=== PATIENT | female | born 1935 | race Caucasian/White ===

== ENCOUNTER 2016-11-02 07:41 | Emergency (ER) | payer MEDICARE, MEDICAID ==
[~2016-11-02] VITALS: Ht 154.9 cm; Wt 94.0 kg
[~2016-11-02 07:41] MED LIST: AMLO5TAB4 PO; ASPI-1035 PO; CARV6.2548 PO; FURO-151 PO; GABA300S PO; HYDR-523 PO; P20 PO; PETR113O TOP; PROT40 PO; RIVA20TA PO; SULF-293 PO; Silver Sulfadiazine TOP
[2016-11-02] MEDS ORDERED: FURO40TA5 PO (07:57)
[2016-11-02] MEDS ORDERED: MONT10TA24 PO (07:57)
[2016-11-02] MEDS ORDERED: LOSA50TA20 PO (07:57)
[2016-11-02] MEDS ORDERED: LETAIRIS (07:57)
[2016-11-02] MEDS ORDERED: RIVA10TA PO (07:57)
[2016-11-02] MEDS ORDERED: SODIUM CHLORIDE 0.9% 1,000 ML IV SCH (08:30)
[2016-11-02] MEDS ORDERED: DIPHENHYDRAMINE 50MG/ML VIAL IV ONE (08:30)
[2016-11-02 09:06] LABS: BASOPHILS % 0.7 % (0.0-2.0); EOSINOPHILS % 4.4 % (0.0-5.0); HEMOGLOBIN. 13.5 g/dL (12.0-16.0); LYMPHOCYTES % 23.8 % (20.0-50.0); MEAN CORPUSCULAR HEMOGLOBIN 29.9 pg (28.0-32.0); MEAN CORPUSCULAR HGB CONC 32.2 g/dL (31.0-37.0); MEAN CORPUSCULAR VOLUME 92.7 fL (81.0-99.0); MEAN PLATELET VOLUME 8.1 fl (7.4-10.4); MONOCYTES % 8.8 % (2.0-8.0); NEUTROPHILS % 62.3 % (40.0-76.0); PLATELET 178 x1000/uL (130-400); RED BLOOD CELL COUNT 4.53 mill/uL (4.2-5.4); RED CELL DISTRIBUTION WIDTH 17.3 % (11.6-14.6); WHITE BLOOD COUNT 5.2 x1000/uL (4.5-11.0)
[2016-11-02 09:12] LABS: INR 1.1; PARTIAL THROMBOPLASTIN TIME 29.5 sec (24.0-34.0); PROTHROMBIN TIME 11.4 sec
[2016-11-02 09:15] LABS: ANION GAP 10; CALCIUM 8.5 mg/dL (8.5-10.1); CARBON DIOXIDE 36 mEq/L (21-32); CHLORIDE 102 mEq/L (98-107); INDEX HEMOLYSI 1 (1-3); INDEX ICTERIC 1 (1-4); INDEX LIPEMIC 1 (1-3); UREA NITROGEN BLOOD 11 mg/dL (7-21); eGFR > 60 mL/min (>60)
[2016-11-02 10:20] VITALS: BP 125/55
[2016-11-02] MEDS ORDERED: TETRACAINE 0.5% OPHTH DROPS 4ML BOTHEYE ONE (10:45)
[2016-11-02] MEDS ORDERED: FLUORESCEIN SODIUM 1MG/STRIP BOTHEYE ONE (10:45)
== END 2016-11-02 11:25 | disposition home or self-care (01) ==
LOC: ER 08:58
DX: R21 Rash and other nonspecific skin eruption (principal); H10.9 Unspecified conjunctivitis; I11.0 Hypertensive heart disease with heart failure; Z79.82 Long term (current) use of aspirin; Z79.01 Long term (current) use of anticoagulants; Z95.0 Presence of cardiac pacemaker
CPT/HCPCS: 36415; 80048; 85025; 85610; 85730; 96361; 96374; 99285; J1200; J7030

== ENCOUNTER → 2017-07-12 | Outpatient (CLI) | payer MEDICARE, MEDICAID ==
[~2017-07-12] MED LIST changes: +ACET-2178 PO; +AMBR10TA3 PO; -AMLO5TAB4 PO; -ASPI-1035 PO; -CARV6.2548 PO; +COR3 PO; -GABA300S PO; -HYDR-523 PO; +LOSA50TA20 PO; -P20 PO; -PETR113O TOP; -PROT40 PO; -RIVA20TA PO; -SULF-293 PO; -Silver Sulfadiazine TOP; +XAR15 PO
== END | disposition home or self-care (01) ==
LOC: RAD 10:56
DX: I51.7 Cardiomegaly (principal); Z95.810 Presence of automatic (implantable) cardiac defibrillator
CPT/HCPCS: 71045

== ENCOUNTER 2017-08-20 15:24 | Inpatient (IN) | payer MEDICARE, MEDICAID ==
[~2017-08-20] VITALS: Ht 152.4 cm; Wt 89.8 kg
[2017-08-20] MEDS ORDERED: IPRATROPIUM BROMIDE (0.02%) 0.5MG/2.5ML NEB HHN STA (16:43)
[2017-08-20] MEDS ORDERED: ALBUTEROL (0.083%) 2.5MG/3ML NEB HHN STA (16:43)
[2017-08-20] MEDS ORDERED: METHYLPREDNISOLONE SOD SUCC 125 MG/2 ML VIAL IV STA (16:43)
[2017-08-20] MEDS ORDERED: FUROSEMIDE 40MG/4ML VIAL IVP ONE (16:45)
[2017-08-20] MEDS ORDERED: MAGNESIUM 2 G PREMIX 50 ML IV ONE (16:45)
[2017-08-20] MEDS ORDERED: LEVOFLOXACIN 750MG PREMIX 150 ML IV ONE (17:00)
[2017-08-20] MEDS ORDERED: FAMOTIDINE 20MG/2ML VIAL IV ONE (17:00)
[2017-08-20 17:15] LABS: BASOPHILS % 0.5 % (0.0-2.0); EOSINOPHILS % 3.7 % (0.0-5.0); HEMATOCRIT. 38.4 % (36.0-48.0); MEAN CORPUSCULAR HEMOGLOBIN 28.7 pg (28.0-32.0); MEAN CORPUSCULAR VOLUME 91.6 fL (81.0-99.0); MEAN PLATELET VOLUME 8.8 fl (7.4-10.4); MONOCYTES % 11.3 % (2.0-8.0); NEUTROPHILS % 66.5 % (40.0-76.0); PLATELET 151 x1000/uL (130-400); RED BLOOD CELL COUNT 4.19 mill/uL (4.2-5.4); RED CELL DISTRIBUTION WIDTH 15.4 % (11.6-14.6)
[2017-08-20 17:18] LABS: INR 1.1; PARTIAL THROMBOPLASTIN TIME 27.3 sec (23.4-31.0)
[2017-08-20 17:23] LABS: CHLORIDE 100 mEq/L (98-107)
[2017-08-20 17:26] LABS: TROPONIN I 0.02 ng/mL (0.00-0.04)
[2017-08-20 18:08] LABS: CLARITY URINE CLEAR (CLEAR); COLOR URINE YELLOW (YELLOW); KETONES URINE NEGATIVE (NEGATIVE); LEUKOCYTE ESTERASE URINE 1+ (NEGATIVE); NITRITE URINE NEGATIVE (NEGATIVE); OCCULT BLOOD URINE NEGATIVE (NEGATIVE); PROTEIN URINE NEGATIVE (NEGATIVE); SPECIFIC GRAVITY URINE 1.011 (1.005-1.030); UROBILINOGEN URINE 0.2 E.U./dL (0.2-1.0)
[2017-08-20 19:07] LABS: BG BASE EXCESS 7.1 mmol/L (-2.0-2.0); BG BILEVEL POS AIRWAY PRESSURE 15/5; BG CARBOXYHEMOGLOBIN 1.4 % (0.5-1.5); BG DEOXYHEMOGLOBIN 9.3 % (0.0-5.0); BG FRACTION INSPIRED OXYGEN 40; BG HCO3 ACT 37.2 mmol/L (22.0-26.0); BG METHEMOGLOBIN 0.2 % (0.0-1.5); BG OXYGEN SATURATION 90.5 % (92.0-98.5); BG OXYHEMOGLOBIN 89.1 % (94.0-97.0); BG PCO2 85.5 mmHg (35.0-45.0); BG PH 7.256 (7.350-7.450); BG PO2 64.6 mmHg (75.0-100.0); BG SAMPLE SITE LEFT RADIAL; BG TOTAL HEMOGLOBIN 12.7 g/dL (12.0-18.0); BG VENT MODE MASK - BIPAP
[2017-08-20 22:27] VITALS: BP 147/99
[2017-08-20 22:42] VITALS: BP 147/99
[2017-08-20] MEDS ORDERED: CLONIDINE 0.1MG TABLET PO PRN (23:45)
[2017-08-20] MEDS ORDERED: IPRATROPIUM/ALBUTEROL 0.5-3(2.5)MG/3ML NEB INH PRN (23:45)
[2017-08-20] MEDS ORDERED: GUAIFENESIN 200MG/10ML SUGAR FREE UDC PO PRN (23:45)
[2017-08-20] MEDS ORDERED: HYDROCODONE/ACETAMINOPHEN 5/325MG TABLET PO PRN (23:45)
[2017-08-20] MEDS ORDERED: MAGNESIUM/ALUMINUM HYDROXIDE/SIMETHICONE 30ML UDC PO PRN (23:45)
[2017-08-20] MEDS ORDERED: LORAZEPAM 2MG/ML CPJ IV PRN (23:45)
[2017-08-20] MEDS ORDERED: ONDANSETRON HCL 4MG/2ML VIAL IV PRN (23:45)
[2017-08-20] MEDS ORDERED: DIPHENHYDRAMINE 50MG/ML VIAL IV PRN (23:45)
[2017-08-20] MEDS ORDERED: ACETAMINOPHEN 325MG TABLET PO PRN (23:45)
[2017-08-20] MEDS ORDERED: DOCUSATE SODIUM 100MG CAPSULE PO PRN (23:45)
[2017-08-20] MEDS ORDERED: HYDROCODONE/ACETAMINOPHEN 10/325MG TABLET PO PRN (23:45)
[2017-08-21] VITALS (12 sets, daily range): BP systolic 11–168; BP diastolic 48–72
[2017-08-21] MEDS ORDERED: ACETAMINOPHEN 325MG TABLET PO PRN (00:30)
[2017-08-21] MEDS ORDERED: LORAZEPAM 2MG/ML CPJ IM PRN ×3 (00:30→01:00)
[2017-08-21] MEDS: LORAZEPAM 2MG/ML CPJ IV PRN ×2 (01:22→22:28)
[2017-08-21 06:29] LABS: BASOPHILS % 0.2 % (0.0-2.0); HEMATOCRIT. 36.9 % (36.0-48.0); HEMOGLOBIN. 11.5 g/dL (12.0-16.0); LYMPHOCYTES % 11.5 % (20.0-50.0); MEAN CORPUSCULAR HEMOGLOBIN 28.3 pg (28.0-32.0); MEAN CORPUSCULAR VOLUME 91.1 fL (81.0-99.0); MEAN PLATELET VOLUME 9.1 fl (7.4-10.4); NEUTROPHILS % 83.3 % (40.0-76.0); PLATELET 137 x1000/uL (130-400); RED BLOOD CELL COUNT 4.06 mill/uL (4.2-5.4)
[2017-08-21 07:11] LABS: CHLORIDE 98 mEq/L (98-107)
[2017-08-21 07:20] LABS: HDL CHOLESTEROL 47 mg/dL (40-59); LDL CHOLESTEROL 49 mg/dL (5-100); TROPONIN I 0.03 ng/mL (0.00-0.04)
[2017-08-21 07:38] LABS: HEPATITIS B SURFACE ANTIGEN NEGATIVE
[2017-08-21 08:08] LABS: HEPATITIS A AB IGM NEGATIVE (NEGATIVE)
[2017-08-21] MEDS: RIVAROXABAN 15 MG TABLET PO SCH (08:21)
[2017-08-21] MEDS: CARVEDILOL 3.125 MG TABLET PO SCH ×2 (08:22→20:20)
[2017-08-21] MEDS: LOSARTAN POTASSIUM 50 MG TABLET PO SCH (08:23)
[2017-08-21] MEDS: FUROSEMIDE 40MG TABLET PO SCH (08:23)
[2017-08-21 08:32] LABS: HEPATITIS B CORE AB IGM NEGATIVE
[2017-08-21 09:37] LABS: BG BASE EXCESS 8.8 mmol/L (-2.0-2.0); BG BILEVEL POS AIRWAY PRESSURE 15/5; BG CARBOXYHEMOGLOBIN 1.3 % (0.5-1.5); BG DEOXYHEMOGLOBIN 4.7 % (0.0-5.0); BG FRACTION INSPIRED OXYGEN 40; BG HCO3 ACT 39.4 mmol/L (22.0-26.0); BG METHEMOGLOBIN 0.1 % (0.0-1.5); BG OXYGEN SATURATION 95.2 % (92.0-98.5); BG OXYHEMOGLOBIN 93.9 % (94.0-97.0); BG PCO2 94.3 mmHg (35.0-45.0); BG PH 7.239 (7.350-7.450); BG PO2 81.8 mmHg (75.0-100.0); BG SAMPLE SITE RIGHT BRACHIAL; BG TOTAL HEMOGLOBIN 12.2 g/dL (12.0-18.0); BG VENT MODE MASK - BIPAP; BG VENT RATE 14 set
[2017-08-21] MEDS ORDERED: OMEPRAZOLE 20MG CAPSULE EXTENDED RELEASE PO SCH (13:30)
[2017-08-21 14:15] LABS: BG BASE EXCESS 12.1 mmol/L (-2.0-2.0); BG BILEVEL POS AIRWAY PRESSURE 18/8; BG CARBOXYHEMOGLOBIN 1.3 % (0.5-1.5); BG DEOXYHEMOGLOBIN 6.7 % (0.0-5.0); BG FRACTION INSPIRED OXYGEN 40; BG HCO3 ACT 42.5 mmol/L (22.0-26.0); BG METHEMOGLOBIN 0.3 % (0.0-1.5); BG OXYGEN SATURATION 93.2 % (92.0-98.5); BG OXYHEMOGLOBIN 91.7 % (94.0-97.0); BG PH 7.278 (7.350-7.450); BG PO2 72.2 mmHg (75.0-100.0); BG SAMPLE SITE RIGHT RADIAL; BG TOTAL HEMOGLOBIN 12.3 g/dL (12.0-18.0); BG VENT MODE MASK - BIPAP; BG VENT RATE 18 set
[2017-08-21] MEDS: METHYLPREDNISOLONE SOD SUCC 40 MG/ML VIAL IV SCH ×2 (15:04→22:28)
[2017-08-21] MEDS: IPRATROPIUM/ALBUTEROL 0.5-3(2.5)MG/3ML NEB HHN SCH ×2 (16:00→20:51)
[2017-08-21 17:14] LABS: BG BASE EXCESS 9.8 mmol/L (-2.0-2.0); BG BILEVEL POS AIRWAY PRESSURE 18/8; BG CARBOXYHEMOGLOBIN 1.1 % (0.5-1.5); BG DEOXYHEMOGLOBIN 10.8 % (0.0-5.0); BG FRACTION INSPIRED OXYGEN 35; BG HCO3 ACT 39.3 mmol/L (22.0-26.0); BG METHEMOGLOBIN 0.3 % (0.0-1.5); BG OXYHEMOGLOBIN 87.8 % (94.0-97.0); BG PCO2 82.6 mmHg (35.0-45.0); BG PH 7.295 (7.350-7.450); BG PO2 58.4 mmHg (75.0-100.0); BG SAMPLE SITE RIGHT RADIAL; BG TOTAL HEMOGLOBIN 12.1 g/dL (12.0-18.0); BG VENT MODE MASK - BIPAP
[2017-08-21] MEDS: BUDESONIDE 0.5MG/2ML NEB HHN SCH (20:51)
[2017-08-22] VITALS (54 sets, daily range): BP systolic 95–157; BP diastolic 42–71
[2017-08-22] MEDS: IPRATROPIUM/ALBUTEROL 0.5-3(2.5)MG/3ML NEB HHN SCH ×7 (00:23→23:49)
[2017-08-22] MEDS: METHYLPREDNISOLONE SOD SUCC 40 MG/ML VIAL IV SCH ×3 (07:50→22:45)
[2017-08-22 09:19] LABS: BG BASE EXCESS 12.8 mmol/L (-2.0-2.0); BG DEOXYHEMOGLOBIN 23.9 % (0.0-5.0); BG FRACTION INSPIRED OXYGEN 21; BG HCO3 ACT 41.8 mmol/L (22.0-26.0); BG METHEMOGLOBIN 0.1 % (0.0-1.5); BG OXYGEN SATURATION 75.8 % (92.0-98.5); BG PCO2 78.3 mmHg (35.0-45.0); BG PH 7.345 (7.350-7.450); BG PO2 40.1 mmHg (75.0-100.0); BG SAMPLE SITE RIGHT RADIAL; BG TOTAL HEMOGLOBIN 12.7 g/dL (12.0-18.0); BG VENT MODE ROOM AIR
[2017-08-22 09:19] LABS: BASOPHILS % 0.3 % (0.0-2.0); HEMATOCRIT. 38.1 % (36.0-48.0); HEMOGLOBIN. 11.7 g/dL (12.0-16.0); LYMPHOCYTES % 13.3 % (20.0-50.0); MEAN CORPUSCULAR VOLUME 90.9 fL (81.0-99.0); MEAN PLATELET VOLUME 8.8 fl (7.4-10.4); MONOCYTES % 8.4 % (2.0-8.0); PLATELET 139 x1000/uL (130-400); RED BLOOD CELL COUNT 4.19 mill/uL (4.2-5.4)
[2017-08-22 09:27] LABS: CHLORIDE 97 mEq/L (98-107)
[2017-08-22 09:38] LABS: PHOSPHORUS 4.4 mg/dL (2.5-4.9)
[2017-08-22] MEDS: FUROSEMIDE 40MG TABLET PO SCH (09:45)
[2017-08-22] MEDS: CARVEDILOL 3.125 MG TABLET PO SCH ×2 (09:45→20:31)
[2017-08-22] MEDS: LORAZEPAM 2MG/ML CPJ IV PRN (09:45)
[2017-08-22] MEDS: LOSARTAN POTASSIUM 50 MG TABLET PO SCH (09:45)
[2017-08-22] MEDS: PANTOPRAZOLE SODIUM 40 MG/VIAL IV SCH (09:45)
[2017-08-22] MEDS: LETAIRIS 10 MG PO SCH (09:46)
[2017-08-22] MEDS: RIVAROXABAN 15 MG TABLET PO SCH (09:46)
[2017-08-22] MEDS: BUDESONIDE 0.5MG/2ML NEB HHN SCH ×2 (10:13→15:34)
[2017-08-22] MEDS ORDERED: SODIUM POLYSTYRENE SULFONATE 15 G/60 ML BOT PO NR (11:00)
[2017-08-22 13:15] LABS: BG BASE EXCESS 5.3 mmol/L (-2.0-2.0); BG BILEVEL POS AIRWAY PRESSURE 18/8; BG CARBOXYHEMOGLOBIN 0.9 % (0.5-1.5); BG DEOXYHEMOGLOBIN 7.1 % (0.0-5.0); BG FRACTION INSPIRED OXYGEN 70; BG HCO3 ACT 34.4 mmol/L (22.0-26.0); BG METHEMOGLOBIN 0.4 % (0.0-1.5); BG OXYGEN SATURATION 92.8 % (92.0-98.5); BG OXYHEMOGLOBIN 91.6 % (94.0-97.0); BG PCO2 75.1 mmHg (35.0-45.0); BG PH 7.279 (7.350-7.450); BG PO2 71.1 mmHg (75.0-100.0); BG SAMPLE SITE RIGHT RADIAL; BG TOTAL HEMOGLOBIN 12.9 g/dL (12.0-18.0); BG VENT MODE MASK - BIPAP; BG VENT RATE 18 set
[2017-08-22] MEDS ORDERED: ETOMIDATE 2MG/ML 10ML VIAL IV ONE (14:00)
[2017-08-22] MEDS ORDERED: SUCCINYLCHOLINE CHLORIDE 200MG/10ML VIAL IV ONE (14:00)
[2017-08-22] MEDS ORDERED: NON FORMULARY PATIENT HOME MED EA XX SCH (14:30)
[2017-08-22] MEDS: PROPOFOL 10MG/ML 100ML 100 ML IV PRN ×2 (14:36→20:30)
[2017-08-22 15:00] LABS: BG BASE EXCESS 10.8 mmol/L (-2.0-2.0); BG CARBOXYHEMOGLOBIN 1.3 % (0.5-1.5); BG DEOXYHEMOGLOBIN 9.7 % (0.0-5.0); BG FRACTION INSPIRED OXYGEN 50; BG HCO3 ACT 37.2 mmol/L (22.0-26.0); BG METHEMOGLOBIN 0.1 % (0.0-1.5); BG OXYGEN SATURATION 90.2 % (92.0-98.5); BG OXYHEMOGLOBIN 88.9 % (94.0-97.0); BG PCO2 57.2 mmHg (35.0-45.0); BG PH 7.431 (7.350-7.450); BG PO2 56.2 mmHg (75.0-100.0); BG SAMPLE SITE RIGHT RADIAL; BG TIDAL VOLUME(mL) 550 mL; BG TOTAL HEMOGLOBIN 12.8 g/dL (12.0-18.0); BG VENT MODE VENT - A/C; BG VENT RATE 18 set
[2017-08-22] MEDS: AMMONIUM LACTATE 12% LOTION 240ML TOP SCH (17:00)
[2017-08-23] VITALS (77 sets, daily range): BP systolic 91–142; BP diastolic 41–71
[2017-08-23] MEDS: PROPOFOL 10MG/ML 100ML 100 ML IV PRN ×4 (03:51→23:20)
[2017-08-23] MEDS: IPRATROPIUM/ALBUTEROL 0.5-3(2.5)MG/3ML NEB HHN SCH ×5 (03:59→20:13)
[2017-08-23 05:43] LABS: BASOPHILS % 0.1 % (0.0-2.0); HEMATOCRIT. 34.4 % (36.0-48.0); HEMOGLOBIN. 11.6 g/dL (12.0-16.0); LYMPHOCYTES % 9.7 % (20.0-50.0); MEAN CORPUSCULAR HEMOGLOBIN 29.5 pg (28.0-32.0); MEAN CORPUSCULAR VOLUME 87.5 fL (81.0-99.0); MEAN PLATELET VOLUME 9.2 fl (7.4-10.4); MONOCYTES % 11.4 % (2.0-8.0); NEUTROPHILS % 78.8 % (40.0-76.0); PLATELET 139 x1000/uL (130-400); RED BLOOD CELL COUNT 3.93 mill/uL (4.2-5.4); RED CELL DISTRIBUTION WIDTH 15.4 % (11.6-14.6)
[2017-08-23 05:49] LABS: CHLORIDE 99 mEq/L (98-107)
[2017-08-23] MEDS: METHYLPREDNISOLONE SOD SUCC 40 MG/ML VIAL IV SCH ×2 (05:59→20:45)
[2017-08-23 07:42] LABS: BG BASE EXCESS 10.2 mmol/L (-2.0-2.0); BG CARBOXYHEMOGLOBIN 0.2 % (0.5-1.5); BG DEOXYHEMOGLOBIN 3.8 % (0.0-5.0); BG FRACTION INSPIRED OXYGEN 65; BG HCO3 ACT 30.9 mmol/L (22.0-26.0); BG METHEMOGLOBIN 0.1 % (0.0-1.5); BG OXYGEN SATURATION 96.2 % (92.0-98.5); BG OXYHEMOGLOBIN 95.9 % (94.0-97.0); BG PCO2 28.8 mmHg (35.0-45.0); BG PH 7.649 (7.350-7.450); BG PO2 72.9 mmHg (75.0-100.0); BG SAMPLE SITE RIGHT RADIAL; BG TIDAL VOLUME(mL) 550 mL; BG TOTAL HEMOGLOBIN 11.9 g/dL (12.0-18.0); BG VENT MODE VENT - A/C; BG VENT RATE 18 set
[2017-08-23] MEDS: LETAIRIS 10 MG PO SCH (08:03)
[2017-08-23] MEDS: AMMONIUM LACTATE 12% LOTION 240ML TOP SCH ×2 (08:03→17:01)
[2017-08-23] MEDS: PANTOPRAZOLE SODIUM 40 MG/VIAL IV SCH (08:04)
[2017-08-23] MEDS: CARVEDILOL 3.125 MG TABLET PO SCH (08:04)
[2017-08-23] MEDS: RIVAROXABAN 15 MG TABLET PO SCH (08:04)
[2017-08-23] MEDS: LOSARTAN POTASSIUM 50 MG TABLET PO SCH (08:04)
[2017-08-23] MEDS: FUROSEMIDE 40MG TABLET PO SCH (08:04)
[2017-08-23] MEDS: BUDESONIDE 0.5MG/2ML NEB HHN SCH ×2 (08:05→20:13)
[2017-08-23 12:25] LABS: BG BASE EXCESS 10.7 mmol/L (-2.0-2.0); BG CARBOXYHEMOGLOBIN 0.1 % (0.5-1.5); BG DEOXYHEMOGLOBIN 4.1 % (0.0-5.0); BG FRACTION INSPIRED OXYGEN 65; BG HCO3 ACT 33.3 mmol/L (22.0-26.0); BG METHEMOGLOBIN 0.4 % (0.0-1.5); BG OXYGEN SATURATION 95.9 % (92.0-98.5); BG OXYHEMOGLOBIN 95.4 % (94.0-97.0); BG PCO2 36.8 mmHg (35.0-45.0); BG PH 7.575 (7.350-7.450); BG PO2 72.7 mmHg (75.0-100.0); BG SAMPLE SITE RIGHT RADIAL; BG TIDAL VOLUME(mL) 550 mL; BG TOTAL HEMOGLOBIN 12.1 g/dL (12.0-18.0); BG VENT MODE VENT - A/C; BG VENT RATE 14 set
[2017-08-23] MEDS: FUROSEMIDE 40MG/4ML VIAL IVP SCH (17:01)
[2017-08-24] VITALS (72 sets, daily range): BP systolic 88–134; BP diastolic 43–73
[2017-08-24] MEDS: IPRATROPIUM/ALBUTEROL 0.5-3(2.5)MG/3ML NEB HHN SCH ×6 (00:14→20:01)
[2017-08-24 05:42] LABS: HEMATOCRIT. 35.5 % (36.0-48.0); HEMOGLOBIN. 11.3 g/dL (12.0-16.0); MEAN CORPUSCULAR VOLUME 87.9 fL (81.0-99.0); MEAN PLATELET VOLUME 9.4 fl (7.4-10.4); PLATELET 137 x1000/uL (130-400); RED BLOOD CELL COUNT 4.04 mill/uL (4.2-5.4); RED CELL DISTRIBUTION WIDTH 15.6 % (11.6-14.6)
[2017-08-24] MEDS: PROPOFOL 10MG/ML 100ML 100 ML IV PRN ×2 (05:44→16:04)
[2017-08-24 06:14] LABS: CHLORIDE 98 mEq/L (98-107)
[2017-08-24 07:22] LABS: PLATELET ESTIMATE NORMAL
[2017-08-24] MEDS: BUDESONIDE 0.5MG/2ML NEB HHN SCH ×2 (07:23→20:01)
[2017-08-24 08:09] LABS: BG BASE EXCESS 11.5 mmol/L (-2.0-2.0); BG CARBOXYHEMOGLOBIN 0.4 % (0.5-1.5); BG DEOXYHEMOGLOBIN 7.2 % (0.0-5.0); BG FRACTION INSPIRED OXYGEN 70; BG HCO3 ACT 35.8 mmol/L (22.0-26.0); BG METHEMOGLOBIN 0.1 % (0.0-1.5); BG OXYGEN SATURATION 92.8 % (92.0-98.5); BG OXYHEMOGLOBIN 92.3 % (94.0-97.0); BG PH 7.518 (7.350-7.450); BG SAMPLE SITE RIGHT RADIAL; BG TIDAL VOLUME(mL) 550 mL; BG TOTAL HEMOGLOBIN 12.7 g/dL (12.0-18.0); BG VENT MODE VENT - A/C; BG VENT RATE 12 set
[2017-08-24] MEDS: FUROSEMIDE 40MG/4ML VIAL IVP SCH (08:28)
[2017-08-24] MEDS: PANTOPRAZOLE SODIUM 40 MG/VIAL IV SCH (09:07)
[2017-08-24] MEDS: RIVAROXABAN 15 MG TABLET PO SCH (09:08)
[2017-08-24] MEDS: METHYLPREDNISOLONE SOD SUCC 40 MG/ML VIAL IV SCH (09:08)
[2017-08-24] MEDS: LETAIRIS 10 MG PO SCH (09:08)
[2017-08-24] MEDS: AMMONIUM LACTATE 12% LOTION 240ML TOP SCH ×2 (09:08→16:59)
[2017-08-24] MEDS ORDERED: PROPOFOL 10MG/ML 100ML 100 ML IV PRN (09:45)
[2017-08-24] MEDS ORDERED: SODIUM CHLORIDE 0.9% 250 ML IV ONE (09:45)
[2017-08-24] MEDS ORDERED: POTASSIUM CHLORIDE 20MEQ/PACKET PO NR (10:00)
[2017-08-24] MEDS: METOPROLOL TARTRATE 25MG TABLET PO SCH ×2 (10:00→21:00)
[2017-08-24] MEDS: LOSARTAN POTASSIUM 50 MG TABLET PO SCH (11:08)
[2017-08-24] MEDS ORDERED: BISACODYL 5MG TABLET PO PRN (11:45)
[2017-08-24] MEDS ORDERED: LACTULOSE 20G/30ML UDC PO NR (11:45)
[2017-08-24] MEDS: FENTANYL CITRATE/PF 500 MCG in SODIUM CHLORIDE 0.9% 40 ML IV PRN ×2 (12:00→17:42)
[2017-08-25] VITALS (99 sets, daily range): BP systolic 86–133; BP diastolic 34–88
[2017-08-25] MEDS: IPRATROPIUM/ALBUTEROL 0.5-3(2.5)MG/3ML NEB HHN SCH ×6 (00:13→20:57)
[2017-08-25 05:36] LABS: BASOPHILS % 0.7 % (0.0-2.0); EOSINOPHILS % 1.9 % (0.0-5.0); HEMATOCRIT. 35.5 % (36.0-48.0); HEMOGLOBIN. 11.4 g/dL (12.0-16.0); MEAN CORPUSCULAR HEMOGLOBIN 27.8 pg (28.0-32.0); MEAN CORPUSCULAR VOLUME 86.7 fL (81.0-99.0); MEAN PLATELET VOLUME 8.9 fl (7.4-10.4); MONOCYTES % 12.3 % (2.0-8.0); NEUTROPHILS % 64.1 % (40.0-76.0); PLATELET 141 x1000/uL (130-400); RED BLOOD CELL COUNT 4.09 mill/uL (4.2-5.4); RED CELL DISTRIBUTION WIDTH 15.8 % (11.6-14.6)
[2017-08-25 05:45] LABS: CHLORIDE 102 mEq/L (98-107)
[2017-08-25] MEDS: PROPOFOL 10MG/ML 100ML 100 ML IV PRN ×4 (06:22→23:56)
[2017-08-25 07:25] LABS: BG BASE EXCESS 7.9 mmol/L (-2.0-2.0); BG CARBOXYHEMOGLOBIN 0.6 % (0.5-1.5); BG HCO3 ACT 33.9 mmol/L (22.0-26.0); BG METHEMOGLOBIN 0.3 % (0.0-1.5); BG OXYHEMOGLOBIN 95.1 % (94.0-97.0); BG PCO2 53.4 mmHg (35.0-45.0); BG PH 7.421 (7.350-7.450); BG PO2 90.5 mmHg (75.0-100.0); BG SAMPLE SITE RIGHT RADIAL; BG TIDAL VOLUME(mL) 550 mL; BG TOTAL HEMOGLOBIN 12.8 g/dL (12.0-18.0); BG VENT MODE VENT - A/C; BG VENT RATE 12 set
[2017-08-25] MEDS: BUDESONIDE 0.5MG/2ML NEB HHN SCH ×2 (08:31→20:57)
[2017-08-25] MEDS: LOSARTAN POTASSIUM 50 MG TABLET PO SCH (08:57)
[2017-08-25] MEDS: LETAIRIS 10 MG PO SCH (08:57)
[2017-08-25] MEDS: METHYLPREDNISOLONE SOD SUCC 40 MG/ML VIAL IV SCH (08:57)
[2017-08-25] MEDS: RIVAROXABAN 15 MG TABLET PO SCH (08:57)
[2017-08-25] MEDS: PANTOPRAZOLE SODIUM 40 MG/VIAL IV SCH (08:57)
[2017-08-25] MEDS: METOPROLOL TARTRATE 25MG TABLET PO SCH ×2 (08:58→20:25)
[2017-08-25] MEDS ORDERED: FUROSEMIDE 20MG/2ML VIAL IVP SCH (09:00)
[2017-08-25] MEDS: POTASSIUM CHLORIDE 20MEQ/PACKET PO SCH (09:01)
[2017-08-25] MEDS: AMMONIUM LACTATE 12% LOTION 240ML TOP SCH ×2 (09:02→16:44)
[2017-08-25] MEDS: FENTANYL CITRATE/PF 500 MCG in SODIUM CHLORIDE 0.9% 40 ML IV PRN (13:00)
[2017-08-26] VITALS (98 sets, daily range): BP systolic 84–143; BP diastolic 31–67
[2017-08-26] MEDS: IPRATROPIUM/ALBUTEROL 0.5-3(2.5)MG/3ML NEB HHN SCH ×6 (00:18→20:36)
[2017-08-26] MEDS: PROPOFOL 10MG/ML 100ML 100 ML IV PRN ×3 (05:04→22:14)
[2017-08-26 06:02] LABS: BASOPHILS % 0.1 % (0.0-2.0); EOSINOPHILS % 4.1 % (0.0-5.0); HEMATOCRIT. 37.2 % (36.0-48.0); HEMOGLOBIN. 11.8 g/dL (12.0-16.0); MEAN CORPUSCULAR HEMOGLOBIN 27.7 pg (28.0-32.0); MEAN CORPUSCULAR VOLUME 87.4 fL (81.0-99.0); MEAN PLATELET VOLUME 9.3 fl (7.4-10.4); MONOCYTES % 10.8 % (2.0-8.0); PLATELET 135 x1000/uL (130-400); RED BLOOD CELL COUNT 4.26 mill/uL (4.2-5.4); RED CELL DISTRIBUTION WIDTH 15.5 % (11.6-14.6)
[2017-08-26 06:11] LABS: CHLORIDE 104 mEq/L (98-107)
[2017-08-26 07:24] LABS: BG CARBOXYHEMOGLOBIN 0.4 % (0.5-1.5); BG DEOXYHEMOGLOBIN 3.2 % (0.0-5.0); BG METHEMOGLOBIN 0.3 % (0.0-1.5); BG OXYGEN SATURATION 96.8 % (92.0-98.5); BG OXYHEMOGLOBIN 96.1 % (94.0-97.0); BG PCO2 47.1 mmHg (35.0-45.0); BG PO2 90.7 mmHg (75.0-100.0); BG SAMPLE SITE RIGHT RADIAL; BG TIDAL VOLUME(mL) 550 mL; BG TOTAL HEMOGLOBIN 12.2 g/dL (12.0-18.0); BG VENT MODE VENT - A/C; BG VENT RATE 12 set
[2017-08-26] MEDS: BUDESONIDE 0.5MG/2ML NEB HHN SCH ×2 (08:02→20:37)
[2017-08-26] MEDS: METOPROLOL TARTRATE 25MG TABLET PO SCH ×2 (09:00→20:27)
[2017-08-26] MEDS: POTASSIUM CHLORIDE 20MEQ/PACKET PO SCH (09:16)
[2017-08-26] MEDS: METHYLPREDNISOLONE SOD SUCC 40 MG/ML VIAL IV SCH (09:16)
[2017-08-26] MEDS: LETAIRIS 10 MG PO SCH (09:16)
[2017-08-26] MEDS: LOSARTAN POTASSIUM 50 MG TABLET PO SCH (09:16)
[2017-08-26] MEDS: RIVAROXABAN 15 MG TABLET PO SCH (09:16)
[2017-08-26] MEDS: PANTOPRAZOLE SODIUM 40 MG/VIAL IV SCH (09:16)
[2017-08-26] MEDS: AMMONIUM LACTATE 12% LOTION 240ML TOP SCH ×2 (09:17→18:21)
[2017-08-26] MEDS: FENTANYL CITRATE/PF 500 MCG in SODIUM CHLORIDE 0.9% 40 ML IV PRN (10:09)
[2017-08-26] MEDS ORDERED: DOCUSATE SODIUM SUGAR FREE 100MG/10ML UDC NG PRN (10:30)
[2017-08-26] MEDS ORDERED: LACTULOSE 20G/30ML UDC PO SCH (11:30)
[2017-08-26 13:44] LABS: BG BASE EXCESS 5.1 mmol/L (-2.0-2.0); BG CARBOXYHEMOGLOBIN 0.3 % (0.5-1.5); BG FRACTION INSPIRED OXYGEN 80; BG HCO3 ACT 30.7 mmol/L (22.0-26.0); BG METHEMOGLOBIN 0.8 % (0.0-1.5); BG OXYGEN SATURATION 93.9 % (92.0-98.5); BG OXYHEMOGLOBIN 92.9 % (94.0-97.0); BG PCO2 49.3 mmHg (35.0-45.0); BG PH 7.412 (7.350-7.450); BG PO2 76.9 mmHg (75.0-100.0); BG SAMPLE SITE LEFT RADIAL; BG TIDAL VOLUME(mL) 550 mL; BG TOTAL HEMOGLOBIN 12.5 g/dL (12.0-18.0); BG VENT MODE VENT - A/C; BG VENT RATE 12 set
[2017-08-27] VITALS (78 sets, daily range): BP systolic 91–145; BP diastolic 42–72
[2017-08-27] MEDS: IPRATROPIUM/ALBUTEROL 0.5-3(2.5)MG/3ML NEB HHN SCH ×6 (01:30→20:31)
[2017-08-27 04:26] LABS: BASOPHILS % 0.2 % (0.0-2.0); EOSINOPHILS % 3.7 % (0.0-5.0); HEMOGLOBIN. 10.9 g/dL (12.0-16.0); LYMPHOCYTES % 17.1 % (20.0-50.0); MEAN CORPUSCULAR HEMOGLOBIN 27.4 pg (28.0-32.0); MEAN CORPUSCULAR VOLUME 87.8 fL (81.0-99.0); MEAN PLATELET VOLUME 9.4 fl (7.4-10.4); MONOCYTES % 10.5 % (2.0-8.0); NEUTROPHILS % 68.5 % (40.0-76.0); PLATELET 136 x1000/uL (130-400); RED BLOOD CELL COUNT 3.98 mill/uL (4.2-5.4)
[2017-08-27 04:38] LABS: CHLORIDE 105 mEq/L (98-107)
[2017-08-27 04:51] LABS: PHOSPHORUS 3.5 mg/dL (2.5-4.9)
[2017-08-27] MEDS: PROPOFOL 10MG/ML 100ML 100 ML IV PRN ×3 (05:42→22:23)
[2017-08-27] MEDS: BUDESONIDE 0.5MG/2ML NEB HHN SCH ×2 (08:08→20:31)
[2017-08-27 08:43] LABS: BG CARBOXYHEMOGLOBIN 0.7 % (0.5-1.5); BG FRACTION INSPIRED OXYGEN 80; BG HCO3 ACT 30.1 mmol/L (22.0-26.0); BG METHEMOGLOBIN 0.5 % (0.0-1.5); BG OXYHEMOGLOBIN 96.8 % (94.0-97.0); BG PCO2 46.5 mmHg (35.0-45.0); BG PH 7.429 (7.350-7.450); BG PO2 108.8 mmHg (75.0-100.0); BG SAMPLE SITE RIGHT RADIAL; BG TIDAL VOLUME(mL) 550 mL; BG TOTAL HEMOGLOBIN 12.2 g/dL (12.0-18.0); BG VENT MODE VENT - A/C; BG VENT RATE 12 set
[2017-08-27] MEDS: METHYLPREDNISOLONE SOD SUCC 40 MG/ML VIAL IV SCH (09:42)
[2017-08-27] MEDS: PANTOPRAZOLE SODIUM 40 MG/VIAL IV SCH (09:42)
[2017-08-27] MEDS: POTASSIUM CHLORIDE 20MEQ/PACKET PO SCH (09:42)
[2017-08-27] MEDS: RIVAROXABAN 15 MG TABLET PO SCH (09:42)
[2017-08-27] MEDS: AMMONIUM LACTATE 12% LOTION 240ML TOP SCH ×2 (09:43→16:21)
[2017-08-27] MEDS: METOPROLOL TARTRATE 25MG TABLET PO SCH (09:43)
[2017-08-27] MEDS: LOSARTAN POTASSIUM 50 MG TABLET PO SCH (09:43)
[2017-08-27] MEDS: LETAIRIS 10 MG PO SCH (09:43)
[2017-08-27] MEDS: FENTANYL CITRATE/PF 500 MCG in SODIUM CHLORIDE 0.9% 40 ML IV PRN (14:22)
[2017-08-28] VITALS (90 sets, daily range): BP systolic 85–129; BP diastolic 34–85
[2017-08-28] MEDS: IPRATROPIUM/ALBUTEROL 0.5-3(2.5)MG/3ML NEB HHN SCH ×6 (00:04→20:14)
[2017-08-28 05:24] LABS: BASOPHILS % 0.1 % (0.0-2.0); EOSINOPHILS % 4.5 % (0.0-5.0); HEMATOCRIT. 34.3 % (36.0-48.0); HEMOGLOBIN. 10.8 g/dL (12.0-16.0); LYMPHOCYTES % 12.8 % (20.0-50.0); MEAN CORPUSCULAR HEMOGLOBIN 27.5 pg (28.0-32.0); MEAN CORPUSCULAR VOLUME 87.6 fL (81.0-99.0); MEAN PLATELET VOLUME 9.9 fl (7.4-10.4); MONOCYTES % 11.4 % (2.0-8.0); NEUTROPHILS % 71.2 % (40.0-76.0); PLATELET 129 x1000/uL (130-400); RED BLOOD CELL COUNT 3.91 mill/uL (4.2-5.4); RED CELL DISTRIBUTION WIDTH 15.8 % (11.6-14.6)
[2017-08-28] MEDS: PROPOFOL 10MG/ML 100ML 100 ML IV PRN ×2 (05:51→14:36)
[2017-08-28 05:57] LABS: CHLORIDE 106 mEq/L (98-107)
[2017-08-28 07:41] LABS: BG BASE EXCESS 2.6 mmol/L (-2.0-2.0); BG CARBOXYHEMOGLOBIN 0.7 % (0.5-1.5); BG FRACTION INSPIRED OXYGEN 80; BG HCO3 ACT 27.7 mmol/L (22.0-26.0); BG METHEMOGLOBIN 0.5 % (0.0-1.5); BG OXYHEMOGLOBIN 96.8 % (94.0-97.0); BG PCO2 44.7 mmHg (35.0-45.0); BG PO2 112.7 mmHg (75.0-100.0); BG SAMPLE SITE RIGHT BRACHIAL; BG TIDAL VOLUME(mL) 550 mL; BG TOTAL HEMOGLOBIN 13.1 g/dL (12.0-18.0); BG VENT MODE VENT - A/C; BG VENT RATE 12 set
[2017-08-28] MEDS ORDERED: DOCUSATE SODIUM SUGAR FREE 100MG/10ML UDC NG SCH (09:00)
[2017-08-28] MEDS: METHYLPREDNISOLONE SOD SUCC 40 MG/ML VIAL IV SCH (09:25)
[2017-08-28] MEDS: PANTOPRAZOLE SODIUM 40 MG/VIAL IV SCH (09:25)
[2017-08-28] MEDS: LETAIRIS 10 MG PO SCH (09:26)
[2017-08-28] MEDS: POTASSIUM CHLORIDE 20MEQ/PACKET PO SCH (09:26)
[2017-08-28] MEDS: RIVAROXABAN 15 MG TABLET PO SCH (09:26)
[2017-08-28] MEDS: LOSARTAN POTASSIUM 25 MG TABLET PO SCH (09:26)
[2017-08-28] MEDS: AMMONIUM LACTATE 12% LOTION 240ML TOP SCH ×2 (09:27→17:02)
[2017-08-28] MEDS: DOCUSATE SODIUM SUGAR FREE 100MG/10ML UDC NG PRN (09:27)
[2017-08-28] MEDS: ACETAMINOPHEN 650MG/20.3ML UDC PO PRN (09:34)
[2017-08-28] MEDS: FENTANYL CITRATE/PF 500 MCG in SODIUM CHLORIDE 0.9% 40 ML IV PRN (18:49)
[2017-08-29] VITALS (91 sets, daily range): BP systolic 77–173; BP diastolic 31–101
[2017-08-29] MEDS: IPRATROPIUM/ALBUTEROL 0.5-3(2.5)MG/3ML NEB HHN SCH ×6 (00:29→20:15)
[2017-08-29] MEDS: ACETAMINOPHEN 650MG/20.3ML UDC PO PRN (01:08)
[2017-08-29 05:35] LABS: CHLORIDE 107 mEq/L (98-107)
[2017-08-29 05:45] LABS: BASOPHILS % 0.2 % (0.0-2.0); EOSINOPHILS % 5.3 % (0.0-5.0); HEMATOCRIT. 32.2 % (36.0-48.0); HEMOGLOBIN. 10.1 g/dL (12.0-16.0); LYMPHOCYTES % 8.6 % (20.0-50.0); MEAN CORPUSCULAR HEMOGLOBIN 27.7 pg (28.0-32.0); MEAN CORPUSCULAR VOLUME 88.1 fL (81.0-99.0); MONOCYTES % 12.7 % (2.0-8.0); NEUTROPHILS % 73.2 % (40.0-76.0); RED BLOOD CELL COUNT 3.66 mill/uL (4.2-5.4)
[2017-08-29] MEDS: PROPOFOL 10MG/ML 100ML 100 ML IV PRN ×2 (07:01→12:25)
[2017-08-29 07:08] LABS: MEAN PLATELET VOLUME 10.7 fl (7.4-10.4)
[2017-08-29 07:09] LABS: PLATELET 159 x1000/uL (130-400)
[2017-08-29 07:54] LABS: BG BASE EXCESS 2.8 mmol/L (-2.0-2.0); BG CARBOXYHEMOGLOBIN 0.5 % (0.5-1.5); BG DEOXYHEMOGLOBIN 1.7 % (0.0-5.0); BG FRACTION INSPIRED OXYGEN 80; BG HCO3 ACT 27.8 mmol/L (22.0-26.0); BG METHEMOGLOBIN 0.4 % (0.0-1.5); BG OXYGEN SATURATION 98.3 % (92.0-98.5); BG OXYHEMOGLOBIN 97.4 % (94.0-97.0); BG PCO2 44.5 mmHg (35.0-45.0); BG PH 7.414 (7.350-7.450); BG PO2 115.6 mmHg (75.0-100.0); BG SAMPLE SITE LEFT RADIAL; BG TIDAL VOLUME(mL) 550 mL; BG VENT MODE VENT - A/C; BG VENT RATE 12 set
[2017-08-29] MEDS: PANTOPRAZOLE SODIUM 40 MG/VIAL IV SCH (08:41)
[2017-08-29] MEDS: LETAIRIS 10 MG PO SCH (08:42)
[2017-08-29] MEDS: METHYLPREDNISOLONE SOD SUCC 40 MG/ML VIAL IV SCH (08:42)
[2017-08-29] MEDS: POTASSIUM CHLORIDE 20MEQ/PACKET PO SCH (08:42)
[2017-08-29] MEDS: AMMONIUM LACTATE 12% LOTION 240ML TOP SCH ×2 (08:42→17:24)
[2017-08-29] MEDS: LOSARTAN POTASSIUM 25 MG TABLET PO SCH (08:42)
[2017-08-29] MEDS: RIVAROXABAN 15 MG TABLET PO SCH (08:42)
[2017-08-29] MEDS ORDERED: FENTANYL CITRATE/PF 500 MCG in SODIUM CHLORIDE 0.9% 40 ML IV PRN (11:30)
[2017-08-29] MEDS: FENTANYL CITRATE/PF 500 MCG in SODIUM CHLORIDE 0.9% 40 ML IV PRN (17:31)
[2017-08-29] MEDS ORDERED: SODIUM CHLORIDE 0.9% 250 ML IV ONE (17:45)
[2017-08-29] MEDS ORDERED: NOREPINEPHRINE 8 MG in DEXT 5% WATER 242 ML IV PRN (18:30)
[2017-08-29] MEDS ORDERED: NOREPINEPHRINE 8 MG in SODIUM CHLORIDE 0.9% 250 ML IV PRN (18:45)
[2017-08-29] MEDS ORDERED: PROPOFOL 10MG/ML 100ML 100 ML IV PRN (19:45)
[2017-08-30] VITALS (84 sets, daily range): BP systolic 82–142; BP diastolic 36–81
[2017-08-30] MEDS: IPRATROPIUM/ALBUTEROL 0.5-3(2.5)MG/3ML NEB HHN SCH ×6 (00:17→20:30)
[2017-08-30 05:54] LABS: HEMATOCRIT. 36.1 % (36.0-48.0); HEMOGLOBIN. 11.2 g/dL (12.0-16.0); MEAN CORPUSCULAR HEMOGLOBIN 27.8 pg (28.0-32.0); MEAN CORPUSCULAR VOLUME 89.3 fL (81.0-99.0); RED BLOOD CELL COUNT 4.04 mill/uL (4.2-5.4); RED CELL DISTRIBUTION WIDTH 16.3 % (11.6-14.6)
[2017-08-30 08:26] LABS: MEAN PLATELET VOLUME 10.7 fl (7.4-10.4); PLATELET 128 x1000/uL (130-400); PLATELET ESTIMATE SLIGHTLY DECREASED
[2017-08-30] MEDS ORDERED: LIDOCAINE HCL/PF 1% 10 MG/ML 5ML VIAL ONE (08:30)
[2017-08-30] MEDS: PROPOFOL 10MG/ML 100ML 100 ML IV PRN ×2 (08:32→15:28)
[2017-08-30 08:42] LABS: BG BASE EXCESS -0.7 mmol/L (-2.0-2.0); BG CARBOXYHEMOGLOBIN 0.2 % (0.5-1.5); BG DEOXYHEMOGLOBIN 6.4 % (0.0-5.0); BG FRACTION INSPIRED OXYGEN 55; BG HCO3 ACT 24.6 mmol/L (22.0-26.0); BG METHEMOGLOBIN 0.3 % (0.0-1.5); BG OXYGEN SATURATION 93.6 % (92.0-98.5); BG OXYHEMOGLOBIN 93.1 % (94.0-97.0); BG PCO2 43.3 mmHg (35.0-45.0); BG PH 7.373 (7.350-7.450); BG PO2 71.8 mmHg (75.0-100.0); BG SAMPLE SITE RIGHT RADIAL; BG TIDAL VOLUME(mL) 550 mL; BG TOTAL HEMOGLOBIN 10.9 g/dL (12.0-18.0); BG VENT MODE VENT - A/C; BG VENT RATE 12 set
[2017-08-30] MEDS: METHYLPREDNISOLONE SOD SUCC 40 MG/ML VIAL IV SCH (09:30)
[2017-08-30] MEDS: PANTOPRAZOLE SODIUM 40 MG/VIAL IV SCH (09:30)
[2017-08-30] MEDS: AMMONIUM LACTATE 12% LOTION 240ML TOP SCH ×2 (09:31→16:18)
[2017-08-30] MEDS: RIVAROXABAN 15 MG TABLET PO SCH (09:31)
[2017-08-30] MEDS: LOSARTAN POTASSIUM 25 MG TABLET PO SCH (09:31)
[2017-08-30] MEDS: LETAIRIS 10 MG PO SCH (09:31)
[2017-08-30] MEDS: POTASSIUM CHLORIDE 20MEQ/PACKET PO SCH (09:31)
[2017-08-30] MEDS ORDERED: FUROSEMIDE 40MG/4ML VIAL IVP NR (09:38)
[2017-08-31] VITALS (79 sets, daily range): BP systolic 85–124; BP diastolic 38–67
[2017-08-31] MEDS: IPRATROPIUM/ALBUTEROL 0.5-3(2.5)MG/3ML NEB HHN SCH ×6 (01:14→20:14)
[2017-08-31 05:43] LABS: HEMATOCRIT. 32.1 % (36.0-48.0); HEMOGLOBIN. 10.3 g/dL (12.0-16.0); MEAN CORPUSCULAR HEMOGLOBIN 28.3 pg (28.0-32.0); MEAN CORPUSCULAR VOLUME 88.5 fL (81.0-99.0); MEAN PLATELET VOLUME 10.3 fl (7.4-10.4); PLATELET 140 x1000/uL (130-400); RED BLOOD CELL COUNT 3.63 mill/uL (4.2-5.4); RED CELL DISTRIBUTION WIDTH 16.2 % (11.6-14.6)
[2017-08-31 06:23] LABS: CHLORIDE 111 mEq/L (98-107)
[2017-08-31] MEDS ORDERED: FUROSEMIDE 40MG/4ML VIAL IVP NR (07:30)
[2017-08-31 07:50] LABS: BG BASE EXCESS 4.5 mmol/L (-2.0-2.0); BG CARBOXYHEMOGLOBIN 0.3 % (0.5-1.5); BG DEOXYHEMOGLOBIN 6.8 % (0.0-5.0); BG HCO3 ACT 30.2 mmol/L (22.0-26.0); BG METHEMOGLOBIN 0.2 % (0.0-1.5); BG OXYGEN SATURATION 93.2 % (92.0-98.5); BG OXYHEMOGLOBIN 92.7 % (94.0-97.0); BG PEEP (cmH2O) 0 cmH2O; BG PH 7.399 (7.350-7.450); BG PO2 69.2 mmHg (75.0-100.0); BG SAMPLE SITE RIGHT RADIAL; BG TIDAL VOLUME(mL) 550 mL; BG TOTAL HEMOGLOBIN 11.5 g/dL (12.0-18.0); BG VENT MODE VENT - A/C; BG VENT RATE 12 set
[2017-08-31] MEDS: PANTOPRAZOLE SODIUM 40 MG/VIAL IV SCH (08:22)
[2017-08-31] MEDS: METHYLPREDNISOLONE SOD SUCC 40 MG/ML VIAL IV SCH (08:22)
[2017-08-31] MEDS: AMMONIUM LACTATE 12% LOTION 240ML TOP SCH ×2 (08:22→18:56)
[2017-08-31] MEDS: LETAIRIS 10 MG PO SCH (08:22)
[2017-08-31] MEDS: RIVAROXABAN 15 MG TABLET PO SCH (08:22)
[2017-08-31] MEDS: POTASSIUM CHLORIDE 20MEQ/PACKET PO SCH (08:22)
[2017-08-31] MEDS: LOSARTAN POTASSIUM 25 MG TABLET PO SCH (08:23)
[2017-08-31 08:43] LABS: PLATELET ESTIMATE NORMAL
[2017-08-31] MEDS ORDERED: PREDNISONE 20MG TABLET PO SCH (09:00)
[2017-08-31] MEDS: BUDESONIDE 0.5MG/2ML NEB HHN SCH ×2 (10:09→20:13)
[2017-08-31] MEDS: PROPOFOL 10MG/ML 100ML 100 ML IV PRN (18:57)
[2017-09-01] VITALS (70 sets, daily range): BP systolic 91–137; BP diastolic 42–82
[2017-09-01] MEDS: IPRATROPIUM/ALBUTEROL 0.5-3(2.5)MG/3ML NEB HHN SCH ×6 (00:36→20:55)
[2017-09-01] MEDS: PROPOFOL 10MG/ML 100ML 100 ML IV PRN ×3 (03:57→18:18)
[2017-09-01 08:02] LABS: BG CARBOXYHEMOGLOBIN 0.3 % (0.5-1.5); BG FRACTION INSPIRED OXYGEN 55; BG HCO3 ACT 27.6 mmol/L (22.0-26.0); BG OXYHEMOGLOBIN 92.7 % (94.0-97.0); BG PCO2 42.2 mmHg (35.0-45.0); BG PH 7.433 (7.350-7.450); BG PO2 68.5 mmHg (75.0-100.0); BG SAMPLE SITE RIGHT RADIAL; BG TIDAL VOLUME(mL) 550 mL; BG TOTAL HEMOGLOBIN 11.8 g/dL (12.0-18.0); BG VENT MODE VENT - A/C; BG VENT RATE 12 set
[2017-09-01] MEDS: BUDESONIDE 0.5MG/2ML NEB HHN SCH ×2 (08:25→20:55)
[2017-09-01] MEDS: LOSARTAN POTASSIUM 25 MG TABLET PO SCH (09:00)
[2017-09-01] MEDS: PREDNISONE 20MG TABLET PO SCH (09:34)
[2017-09-01] MEDS: PANTOPRAZOLE SODIUM 40 MG/VIAL IV SCH (09:34)
[2017-09-01] MEDS: RIVAROXABAN 15 MG TABLET PO SCH (09:34)
[2017-09-01] MEDS: LETAIRIS 10 MG PO SCH (09:34)
[2017-09-01] MEDS: POTASSIUM CHLORIDE 20MEQ/PACKET PO SCH (09:34)
[2017-09-01] MEDS: AMMONIUM LACTATE 12% LOTION 240ML TOP SCH ×2 (09:34→16:59)
[2017-09-02] VITALS (44 sets, daily range): BP systolic 91–148; BP diastolic 42–97
[2017-09-02] MEDS: IPRATROPIUM/ALBUTEROL 0.5-3(2.5)MG/3ML NEB HHN SCH ×6 (00:38→20:22)
[2017-09-02] MEDS: PROPOFOL 10MG/ML 100ML 100 ML IV PRN ×2 (03:14→05:57)
[2017-09-02 04:28] LABS: BASOPHILS % 0.9 % (0.0-2.0); EOSINOPHILS % 4.2 % (0.0-5.0); HEMATOCRIT. 32.8 % (36.0-48.0); HEMOGLOBIN. 10.6 g/dL (12.0-16.0); LYMPHOCYTES % 25.7 % (20.0-50.0); MEAN CORPUSCULAR HEMOGLOBIN 28.4 pg (28.0-32.0); MEAN CORPUSCULAR VOLUME 87.9 fL (81.0-99.0); MEAN PLATELET VOLUME 9.9 fl (7.4-10.4); MONOCYTES % 9.8 % (2.0-8.0); NEUTROPHILS % 59.4 % (40.0-76.0); PLATELET 142 x1000/uL (130-400); RED BLOOD CELL COUNT 3.73 mill/uL (4.2-5.4); RED CELL DISTRIBUTION WIDTH 16.2 % (11.6-14.6)
[2017-09-02 04:42] LABS: CHLORIDE 112 mEq/L (98-107)
[2017-09-02] MEDS: BUDESONIDE 0.5MG/2ML NEB HHN SCH ×2 (08:28→20:22)
[2017-09-02] MEDS: LOSARTAN POTASSIUM 25 MG TABLET PO SCH (09:00)
[2017-09-02] MEDS: AMMONIUM LACTATE 12% LOTION 240ML TOP SCH ×2 (09:09→17:00)
[2017-09-02] MEDS: LETAIRIS 10 MG PO SCH (09:09)
[2017-09-02] MEDS: RIVAROXABAN 15 MG TABLET PO SCH (09:09)
[2017-09-02] MEDS: PANTOPRAZOLE SODIUM 40 MG/VIAL IV SCH (09:09)
[2017-09-02] MEDS: PREDNISONE 20MG TABLET PO SCH (09:09)
[2017-09-02] MEDS: POTASSIUM CHLORIDE 20MEQ/PACKET PO SCH (09:09)
[2017-09-02 09:25] LABS: BG BASE EXCESS 2.5 mmol/L (-2.0-2.0); BG CARBOXYHEMOGLOBIN 0.3 % (0.5-1.5); BG DEOXYHEMOGLOBIN 5.6 % (0.0-5.0); BG FRACTION INSPIRED OXYGEN 55; BG HCO3 ACT 28.3 mmol/L (22.0-26.0); BG METHEMOGLOBIN 0.3 % (0.0-1.5); BG OXYGEN SATURATION 94.4 % (92.0-98.5); BG OXYHEMOGLOBIN 93.8 % (94.0-97.0); BG PCO2 48.9 mmHg (35.0-45.0); BG PH 7.381 (7.350-7.450); BG PO2 74.6 mmHg (75.0-100.0); BG SAMPLE SITE RIGHT RADIAL; BG TIDAL VOLUME(mL) 550 mL; BG TOTAL HEMOGLOBIN 12.3 g/dL (12.0-18.0); BG VENT MODE VENT - A/C; BG VENT RATE 12 set
[2017-09-02] MEDS ORDERED: PROPOFOL 10MG/ML 100ML 100 ML IV PRN (13:15)
[2017-09-02 17:31] LABS: BG BASE EXCESS 2.2 mmol/L (-2.0-2.0); BG CARBOXYHEMOGLOBIN 0.2 % (0.5-1.5); BG DEOXYHEMOGLOBIN 5.9 % (0.0-5.0); BG FRACTION INSPIRED OXYGEN 50; BG HCO3 ACT 27.3 mmol/L (22.0-26.0); BG METHEMOGLOBIN 0.2 % (0.0-1.5); BG OXYGEN SATURATION 94.1 % (92.0-98.5); BG OXYHEMOGLOBIN 93.7 % (94.0-97.0); BG PCO2 44.1 mmHg (35.0-45.0); BG PH 7.409 (7.350-7.450); BG PRESSURE SUPPORT 14; BG SAMPLE SITE RIGHT RADIAL; BG TIDAL VOLUME(mL) 550 mL; BG TOTAL HEMOGLOBIN 12.5 g/dL (12.0-18.0); BG VENT MODE VENT - SIMV; BG VENT RATE 10 set
[2017-09-03] VITALS (72 sets, daily range): BP systolic 106–163; BP diastolic 30–110
[2017-09-03] MEDS: IPRATROPIUM/ALBUTEROL 0.5-3(2.5)MG/3ML NEB HHN SCH ×6 (00:40→20:50)
[2017-09-03] MEDS: BUDESONIDE 0.5MG/2ML NEB HHN SCH (08:11)
[2017-09-03] MEDS: PREDNISONE 20MG TABLET PO SCH (09:25)
[2017-09-03] MEDS: LOSARTAN POTASSIUM 25 MG TABLET PO SCH (09:25)
[2017-09-03] MEDS: POTASSIUM CHLORIDE 20MEQ/PACKET PO SCH (09:26)
[2017-09-03] MEDS: RIVAROXABAN 15 MG TABLET PO SCH (09:26)
[2017-09-03] MEDS: PANTOPRAZOLE SODIUM 40 MG/VIAL IV SCH (09:26)
[2017-09-03] MEDS: LETAIRIS 10 MG PO SCH (09:28)
[2017-09-03 11:14] LABS: BG BASE EXCESS 1.4 mmol/L (-2.0-2.0); BG CARBOXYHEMOGLOBIN 0.3 % (0.5-1.5); BG DEOXYHEMOGLOBIN 2.9 % (0.0-5.0); BG FRACTION INSPIRED OXYGEN 50; BG HCO3 ACT 25.4 mmol/L (22.0-26.0); BG METHEMOGLOBIN 0.2 % (0.0-1.5); BG OXYGEN SATURATION 97.1 % (92.0-98.5); BG OXYHEMOGLOBIN 96.6 % (94.0-97.0); BG PCO2 38.1 mmHg (35.0-45.0); BG PH 7.442 (7.350-7.450); BG PO2 93.5 mmHg (75.0-100.0); BG PRESSURE SUPPORT 14; BG SAMPLE SITE RIGHT RADIAL; BG TIDAL VOLUME(mL) 550 mL; BG TOTAL HEMOGLOBIN 11.5 g/dL (12.0-18.0); BG VENT MODE VENT - SIMV; BG VENT RATE 10 set
[2017-09-03 11:57] LABS: BG BASE EXCESS 2.6 mmol/L (-2.0-2.0); BG CARBOXYHEMOGLOBIN 0.6 % (0.5-1.5); BG DEOXYHEMOGLOBIN 6.6 % (0.0-5.0); BG FRACTION INSPIRED OXYGEN 40; BG HCO3 ACT 28.7 mmol/L (22.0-26.0); BG METHEMOGLOBIN 0.4 % (0.0-1.5); BG OXYGEN SATURATION 93.3 % (92.0-98.5); BG OXYHEMOGLOBIN 92.4 % (94.0-97.0); BG PCO2 50.7 mmHg (35.0-45.0); BG PH 7.371 (7.350-7.450); BG PO2 70.4 mmHg (75.0-100.0); BG PRESSURE SUPPORT 8; BG SAMPLE SITE RIGHT RADIAL; BG TOTAL HEMOGLOBIN 12.5 g/dL (12.0-18.0); BG VENT MODE VENT - CPAP
[2017-09-04] VITALS (45 sets, daily range): BP systolic 103–171; BP diastolic 49–96
[2017-09-04] MEDS: IPRATROPIUM/ALBUTEROL 0.5-3(2.5)MG/3ML NEB HHN SCH ×6 (00:13→19:56)
[2017-09-04 06:03] LABS: BASOPHILS % 0.8 % (0.0-2.0); EOSINOPHILS % 3.9 % (0.0-5.0); HEMATOCRIT. 39.8 % (36.0-48.0); HEMOGLOBIN. 12.3 g/dL (12.0-16.0); LYMPHOCYTES % 22.2 % (20.0-50.0); MEAN CORPUSCULAR HEMOGLOBIN 27.8 pg (28.0-32.0); MEAN CORPUSCULAR VOLUME 89.6 fL (81.0-99.0); MEAN PLATELET VOLUME 9.2 fl (7.4-10.4); MONOCYTES % 7.8 % (2.0-8.0); NEUTROPHILS % 65.3 % (40.0-76.0); PLATELET 155 x1000/uL (130-400); RED BLOOD CELL COUNT 4.44 mill/uL (4.2-5.4); RED CELL DISTRIBUTION WIDTH 16.5 % (11.6-14.6)
[2017-09-04 06:19] LABS: CHLORIDE 110 mEq/L (98-107)
[2017-09-04 06:25] LABS: PHOSPHORUS 4.5 mg/dL (2.5-4.9)
[2017-09-04 07:45] LABS: BG BASE EXCESS 3.6 mmol/L (-2.0-2.0); BG CARBOXYHEMOGLOBIN 0.9 % (0.5-1.5); BG DEOXYHEMOGLOBIN 6.7 % (0.0-5.0); BG HCO3 ACT 30.5 mmol/L (22.0-26.0); BG METHEMOGLOBIN 0.3 % (0.0-1.5); BG OXYGEN SATURATION 93.2 % (92.0-98.5); BG OXYHEMOGLOBIN 92.1 % (94.0-97.0); BG PCO2 56.7 mmHg (35.0-45.0); BG PH 7.349 (7.350-7.450); BG PO2 72.6 mmHg (75.0-100.0); BG SAMPLE SITE RIGHT RADIAL; BG TOTAL HEMOGLOBIN 13.3 g/dL (12.0-18.0); BG VENT MODE MASK - AEROSOL
[2017-09-04] MEDS: PREDNISONE 20MG TABLET PO SCH (08:26)
[2017-09-04] MEDS: PANTOPRAZOLE SODIUM 40 MG/VIAL IV SCH (08:27)
[2017-09-04] MEDS: LETAIRIS 10 MG PO SCH (08:27)
[2017-09-04] MEDS: RIVAROXABAN 15 MG TABLET PO SCH (08:27)
[2017-09-04] MEDS: POTASSIUM CHLORIDE 20MEQ/PACKET PO SCH (08:27)
[2017-09-04] MEDS: LOSARTAN POTASSIUM 25 MG TABLET PO SCH (08:27)
[2017-09-04] MEDS: FUROSEMIDE 20MG TABLET PO SCH (14:02)
[2017-09-05] VITALS (15 sets, daily range): BP systolic 108–145; BP diastolic 56–71
[2017-09-05] MEDS: IPRATROPIUM/ALBUTEROL 0.5-3(2.5)MG/3ML NEB HHN SCH ×6 (01:11→20:24)
[2017-09-05 08:11] LABS: BASOPHILS % 0.7 % (0.0-2.0); EOSINOPHILS % 5.8 % (0.0-5.0); HEMATOCRIT. 39.9 % (36.0-48.0); HEMOGLOBIN. 12.7 g/dL (12.0-16.0); LYMPHOCYTES % 22.5 % (20.0-50.0); MEAN CORPUSCULAR HEMOGLOBIN 28.1 pg (28.0-32.0); MEAN CORPUSCULAR VOLUME 88.3 fL (81.0-99.0); MEAN PLATELET VOLUME 9.3 fl (7.4-10.4); MONOCYTES % 7.5 % (2.0-8.0); NEUTROPHILS % 63.5 % (40.0-76.0); PLATELET 152 x1000/uL (130-400); RED BLOOD CELL COUNT 4.52 mill/uL (4.2-5.4); RED CELL DISTRIBUTION WIDTH 16.3 % (11.6-14.6)
[2017-09-05 08:29] LABS: CHLORIDE 103 mEq/L (98-107)
[2017-09-05] MEDS: OMEPRAZOLE 20MG CAPSULE EXTENDED RELEASE PO SCH (09:02)
[2017-09-05] MEDS: POTASSIUM CHLORIDE 20MEQ/PACKET PO SCH (09:15)
[2017-09-05] MEDS: PREDNISONE 20MG TABLET PO SCH (09:15)
[2017-09-05] MEDS: RIVAROXABAN 15 MG TABLET PO SCH (09:15)
[2017-09-05] MEDS: FUROSEMIDE 20MG TABLET PO SCH (09:15)
[2017-09-05] MEDS: LOSARTAN POTASSIUM 25 MG TABLET PO SCH (09:16)
[2017-09-05] MEDS: LETAIRIS 10 MG PO SCH (09:16)
[2017-09-06] VITALS (16 sets, daily range): BP systolic 95–150; BP diastolic 52–68
[2017-09-06] MEDS: IPRATROPIUM/ALBUTEROL 0.5-3(2.5)MG/3ML NEB HHN SCH ×6 (00:14→21:29)
[2017-09-06 07:28] LABS: BASOPHILS % 0.4 % (0.0-2.0); EOSINOPHILS % 4.6 % (0.0-5.0); HEMATOCRIT. 37.8 % (36.0-48.0); HEMOGLOBIN. 12.2 g/dL (12.0-16.0); LYMPHOCYTES % 23.4 % (20.0-50.0); MEAN CORPUSCULAR HEMOGLOBIN 28.2 pg (28.0-32.0); MEAN CORPUSCULAR VOLUME 87.7 fL (81.0-99.0); MEAN PLATELET VOLUME 9.3 fl (7.4-10.4); MONOCYTES % 8.5 % (2.0-8.0); NEUTROPHILS % 63.1 % (40.0-76.0); PLATELET 140 x1000/uL (130-400); RED BLOOD CELL COUNT 4.31 mill/uL (4.2-5.4); RED CELL DISTRIBUTION WIDTH 16.4 % (11.6-14.6)
[2017-09-06] MEDS: OMEPRAZOLE 20MG CAPSULE EXTENDED RELEASE PO SCH (07:30)
[2017-09-06 08:40] LABS: CHLORIDE 99 mEq/L (98-107)
[2017-09-06] MEDS: PREDNISONE 20MG TABLET PO SCH (09:27)
[2017-09-06] MEDS: FUROSEMIDE 20MG TABLET PO SCH (09:27)
[2017-09-06] MEDS: RIVAROXABAN 15 MG TABLET PO SCH (09:27)
[2017-09-06] MEDS: POTASSIUM CHLORIDE 20MEQ/PACKET PO SCH (09:27)
[2017-09-06] MEDS: LOSARTAN POTASSIUM 25 MG TABLET PO SCH (09:28)
[2017-09-06] MEDS ORDERED: FUROSEMIDE 20MG TABLET PO SCH (12:00)
[2017-09-06] MEDS: TRAMADOL 50MG TABLET PO PRN (12:57)
[2017-09-06] MEDS: LETAIRIS 10 MG PO SCH (12:59)
[2017-09-06] MEDS ORDERED: POTASSIUM CHLORIDE 20MEQ/PACKET PO SCH (13:00)
[2017-09-07] VITALS (13 sets, daily range): BP systolic 11–148; BP diastolic 49–66
[2017-09-07] MEDS: IPRATROPIUM/ALBUTEROL 0.5-3(2.5)MG/3ML NEB HHN SCH ×5 (00:23→15:55)
[2017-09-07] MEDS: OMEPRAZOLE 20MG CAPSULE EXTENDED RELEASE PO SCH (07:30)
[2017-09-07 07:33] LABS: BASOPHILS % 0.6 % (0.0-2.0); EOSINOPHILS % 4.1 % (0.0-5.0); HEMOGLOBIN. 11.7 g/dL (12.0-16.0); LYMPHOCYTES % 24.2 % (20.0-50.0); MEAN CORPUSCULAR HEMOGLOBIN 27.7 pg (28.0-32.0); MEAN CORPUSCULAR VOLUME 87.4 fL (81.0-99.0); MEAN PLATELET VOLUME 9.2 fl (7.4-10.4); MONOCYTES % 7.6 % (2.0-8.0); NEUTROPHILS % 63.5 % (40.0-76.0); PLATELET 145 x1000/uL (130-400); RED BLOOD CELL COUNT 4.23 mill/uL (4.2-5.4); RED CELL DISTRIBUTION WIDTH 16.6 % (11.6-14.6)
[2017-09-07 07:54] LABS: CHLORIDE 99 mEq/L (98-107)
[2017-09-07] MEDS: DOCUSATE SODIUM SUGAR FREE 100MG/10ML UDC NG PRN (08:58)
[2017-09-07] MEDS: PREDNISONE 20MG TABLET PO SCH (08:58)
[2017-09-07] MEDS: POTASSIUM CHLORIDE 20MEQ/PACKET PO SCH (08:58)
[2017-09-07] MEDS: RIVAROXABAN 15 MG TABLET PO SCH (08:59)
[2017-09-07] MEDS: TRAMADOL 50MG TABLET PO PRN (08:59)
[2017-09-07] MEDS ORDERED: FUROSEMIDE 40MG TABLET PO SCH (09:00)
[2017-09-07] MEDS: LOSARTAN POTASSIUM 25 MG TABLET PO SCH (09:04)
[2017-09-07] MEDS: LETAIRIS 10 MG PO SCH (09:08)
== END 2017-09-07 18:22 | DRG 207 ==
LOC: ER 16:46 → 5EST 16:56 → EDBEDREQ 17:59 → ENRESERV 19:47 → MICUSO 08-22 13:50 → 5EST 09-05 00:40
PROVIDERS: ADMIT Family Medicine Adult Medicine; ATTEND Family Medicine Adult Medicine
PROC: 5A09457 Assistance with Respiratory Ventilation, 24-96 Consecutive Hours, Continuous Positive Airway Pressure (ICD-10-PCS; 2017-08-20)
PROC: 5A1955Z Respiratory Ventilation, Greater than 96 Consecutive Hours (ICD-10-PCS; principal; 2017-08-22)
PROC: 0BH17EZ Insertion of Endotracheal Airway into Trachea, Via Natural or Artificial Opening (ICD-10-PCS; 2017-08-22)
PROC: 02HV33Z Insertion of Infusion Device into Superior Vena Cava, Percutaneous Approach (ICD-10-PCS; 2017-08-30)
PROC: B548ZZA Ultrasonography of Superior Vena Cava, Guidance (ICD-10-PCS; 2017-08-30)
DX: J96.21 Acute and chronic respiratory failure with hypoxia (principal); G62.81 Critical illness polyneuropathy; I50.43 Acute on chronic combined systolic (congestive) and diastolic (congestive) heart failure; E46 Unspecified protein-calorie malnutrition; E87.2 Acidosis; E87.5 Hyperkalemia; I27.20 Pulmonary hypertension, unspecified; E66.01 Morbid (severe) obesity due to excess calories; I48.0 Paroxysmal atrial fibrillation; I42.9 Cardiomyopathy, unspecified; J44.1 Chronic obstructive pulmonary disease with (acute) exacerbation; I50.42 Chronic combined systolic (congestive) and diastolic (congestive) heart failure; R13.10 Dysphagia, unspecified; D64.9 Anemia, unspecified; E11.9 Type 2 diabetes mellitus without complications; I11.0 Hypertensive heart disease with heart failure; E78.5 Hyperlipidemia, unspecified; E87.6 Hypokalemia; H54.61 Unqualified visual loss, right eye, normal vision left eye; I44.7 Left bundle-branch block, unspecified; I49.5 Sick sinus syndrome; I87.2 Venous insufficiency (chronic) (peripheral); I87.8 Other specified disorders of veins; J96.22 Acute and chronic respiratory failure with hypercapnia; K21.9 Gastro-esophageal reflux disease without esophagitis; L30.9 Dermatitis, unspecified; Z99.81 Dependence on supplemental oxygen; Z79.01 Long term (current) use of anticoagulants; Z90.49 Acquired absence of other specified parts of digestive tract; Z95.810 Presence of automatic (implantable) cardiac defibrillator; Z79.899 Other long term (current) drug therapy; Z68.38 Body mass index [BMI] 38.0-38.9, adult
CPT/HCPCS: 31500; 36415; 36569; 36600; 71045; 76705; 76937; 80048; 80053; 80061; 80076; 81003; 82105; 82375; 82805; 83605; 83690; 83735; 83880; 84100; 84443; 84478; 84484; 85025; 85610; 85730; 86301; 86705; 86709; 86803; 87040; 87086; 87340; 92523; 92610; 93005; 93306; 93970; 94002; 94003; 94640; 94660; 94664; 96365; 96375; 97110; 97162; 97167; 97530; 97535; 99291; A6261; C1725; C9113; J0330; J1940; J1956; J2060; J2704; J2920; J2930; J3010; J3475; J3490; J7050; J7512; J7611; J7620; J7626; A4315

== ENCOUNTER 2017-09-07 18:10 | Inpatient (IN) | payer MEDICARE, MEDICAID ==
[~2017-09-07] VITALS: Ht 152.4 cm; Wt 89.8 kg
[2017-09-07 20:00] VITALS: BP 99/49
[2017-09-07] MEDS ORDERED: ONDANSETRON HCL 4MG TABLET PO PRN (21:00)
[2017-09-07] MEDS ORDERED: ACETAMINOPHEN 325MG TABLET PO PRN (21:00)
[2017-09-07] MEDS ORDERED: GUAIFENESIN 200MG/10ML SUGAR FREE UDC PO PRN (21:00)
[2017-09-07] MEDS ORDERED: TRAMADOL 50MG TABLET PO PRN (21:00)
[2017-09-07] MEDS ORDERED: CLONIDINE 0.1MG TABLET PO PRN (21:00)
[2017-09-07] MEDS ORDERED: IPRATROPIUM/ALBUTEROL 0.5-3(2.5)MG/3ML NEB HHN PRN (21:00)
[2017-09-07] MEDS ORDERED: BISACODYL 5MG TABLET PO PRN (21:00)
[2017-09-07] MEDS ORDERED: DOCUSATE SODIUM SUGAR FREE 100MG/10ML UDC PO PRN (21:00)
[2017-09-08 04:14] VITALS: BP 99/49
[2017-09-08] MEDS: IPRATROPIUM/ALBUTEROL 0.5-3(2.5)MG/3ML NEB HHN SCH ×5 (05:41→21:07)
[2017-09-08] MEDS: OMEPRAZOLE 20MG CAPSULE EXTENDED RELEASE PO SCH (06:37)
[2017-09-08 07:04] LABS: BASOPHILS % 0.6 % (0.0-2.0); EOSINOPHILS % 3.5 % (0.0-5.0); HEMATOCRIT. 38.3 % (36.0-48.0); HEMOGLOBIN. 11.9 g/dL (12.0-16.0); LYMPHOCYTES % 24.2 % (20.0-50.0); MEAN CORPUSCULAR HEMOGLOBIN 27.4 pg (28.0-32.0); MEAN CORPUSCULAR VOLUME 88.1 fL (81.0-99.0); MEAN PLATELET VOLUME 8.9 fl (7.4-10.4); MONOCYTES % 10.3 % (2.0-8.0); NEUTROPHILS % 61.4 % (40.0-76.0); PLATELET 134 x1000/uL (130-400); RED BLOOD CELL COUNT 4.35 mill/uL (4.2-5.4); RED CELL DISTRIBUTION WIDTH 16.1 % (11.6-14.6)
[2017-09-08 07:26] LABS: CHLORIDE 98 mEq/L (98-107)
[2017-09-08 07:48] LABS: PREALBUMIN 22.2 mg/dL (20.0-40.0)
[2017-09-08 07:54] VITALS: BP 120/46
[2017-09-08] MEDS: LOSARTAN POTASSIUM 25 MG TABLET PO SCH (08:30)
[2017-09-08] MEDS: PREDNISONE 20MG TABLET PO SCH (08:31)
[2017-09-08] MEDS: FUROSEMIDE 40MG TABLET PO SCH (08:31)
[2017-09-08] MEDS: RIVAROXABAN 15 MG TABLET PO SCH (08:31)
[2017-09-08] MEDS: LETAIRIS PO SCH (08:31)
[2017-09-08] MEDS: POTASSIUM CHLORIDE 20MEQ/PACKET PO SCH ×2 (08:31→08:32)
[2017-09-08] MEDS ORDERED: HYDROCODONE/ACETAMINOPHEN 5/325MG TABLET PO PRN (12:00)
[2017-09-08] MEDS: METHYL SALICYLATE/MENTHOL CREAM 85GM TOP SCH ×2 (12:00→19:01)
[2017-09-08] MEDS: LIDOCAINE 5% PATCH TOP SCH (13:43)
[2017-09-08] MEDS ORDERED: FLUTICASONE/VILANTEROL 200-25 BLST.W.DEV ORI SCH (17:00)
[2017-09-08] MEDS: BUDESONIDE 0.5MG/2ML NEB HHN SCH (17:13)
[2017-09-08 17:40] LABS: CLARITY URINE CLEAR (CLEAR); COLOR URINE YELLOW (YELLOW); KETONES URINE NEGATIVE (NEGATIVE); LEUKOCYTE ESTERASE URINE TRACE (NEGATIVE); NITRITE URINE NEGATIVE (NEGATIVE); OCCULT BLOOD URINE NEGATIVE (NEGATIVE); PROTEIN URINE NEGATIVE (NEGATIVE); UROBILINOGEN URINE 0.2 E.U./dL (0.2-1.0)
[2017-09-08 19:33] VITALS: BP 114/51
[2017-09-09] MEDS: IPRATROPIUM/ALBUTEROL 0.5-3(2.5)MG/3ML NEB HHN SCH ×7 (00:32→23:36)
[2017-09-09] MEDS: BUDESONIDE 0.5MG/2ML NEB HHN SCH ×3 (04:56→21:55)
[2017-09-09] MEDS: METHYL SALICYLATE/MENTHOL CREAM 85GM TOP SCH ×5 (06:14→23:28)
[2017-09-09] MEDS: OMEPRAZOLE 20MG CAPSULE EXTENDED RELEASE PO SCH (06:14)
[2017-09-09 07:15] LABS: BASOPHILS % 0.5 % (0.0-2.0); EOSINOPHILS % 3.3 % (0.0-5.0); HEMATOCRIT. 36.4 % (36.0-48.0); HEMOGLOBIN. 11.7 g/dL (12.0-16.0); LYMPHOCYTES % 26.6 % (20.0-50.0); MEAN CORPUSCULAR VOLUME 87.3 fL (81.0-99.0); MONOCYTES % 9.6 % (2.0-8.0); PLATELET 142 x1000/uL (130-400); RED BLOOD CELL COUNT 4.17 mill/uL (4.2-5.4); RED CELL DISTRIBUTION WIDTH 16.5 % (11.6-14.6)
[2017-09-09 07:39] LABS: CHLORIDE 95 mEq/L (98-107)
[2017-09-09 07:59] VITALS: BP 118/44
[2017-09-09] MEDS: LOSARTAN POTASSIUM 25 MG TABLET PO SCH (08:39)
[2017-09-09] MEDS: PREDNISONE 20MG TABLET PO SCH (08:39)
[2017-09-09] MEDS: FUROSEMIDE 40MG TABLET PO SCH (08:39)
[2017-09-09] MEDS: RIVAROXABAN 15 MG TABLET PO SCH (08:40)
[2017-09-09] MEDS: LETAIRIS PO SCH (08:40)
[2017-09-09] MEDS: LIDOCAINE 5% PATCH TOP SCH (08:41)
[2017-09-09] MEDS: POTASSIUM CHLORIDE 20MEQ/PACKET PO SCH (08:43)
[2017-09-09 20:00] VITALS: BP 98/43
[2017-09-10] MEDS: IPRATROPIUM/ALBUTEROL 0.5-3(2.5)MG/3ML NEB HHN SCH ×5 (03:30→21:40)
[2017-09-10] MEDS: METHYL SALICYLATE/MENTHOL CREAM 85GM TOP SCH ×3 (05:24→18:15)
[2017-09-10 06:40] LABS: BASOPHILS % 0.6 % (0.0-2.0); EOSINOPHILS % 2.5 % (0.0-5.0); HEMATOCRIT. 35.4 % (36.0-48.0); HEMOGLOBIN. 11.4 g/dL (12.0-16.0); LYMPHOCYTES % 20.9 % (20.0-50.0); MEAN CORPUSCULAR HEMOGLOBIN 28.3 pg (28.0-32.0); MEAN CORPUSCULAR VOLUME 87.4 fL (81.0-99.0); MEAN PLATELET VOLUME 9.2 fl (7.4-10.4); PLATELET 150 x1000/uL (130-400); RED BLOOD CELL COUNT 4.05 mill/uL (4.2-5.4); RED CELL DISTRIBUTION WIDTH 16.8 % (11.6-14.6)
[2017-09-10 06:55] LABS: CHLORIDE 95 mEq/L (98-107)
[2017-09-10 07:10] LABS: HDL CHOLESTEROL 51 mg/dL (40-59); LDL CHOLESTEROL 72 mg/dL (5-100); PHOSPHORUS 3.8 mg/dL (2.5-4.9); TOTAL IRON BINDING CAPACITY 235 ug/dL (250-450)
[2017-09-10 07:33] LABS: FOLIC ACID (FOLATE) SERUM 9.7 ng/mL (>5.38)
[2017-09-10 08:00] VITALS: BP 98/41
[2017-09-10] MEDS: BUDESONIDE 0.5MG/2ML NEB HHN SCH ×2 (08:13→21:39)
[2017-09-10] MEDS: LOSARTAN POTASSIUM 25 MG TABLET PO SCH (09:00)
[2017-09-10] MEDS: POTASSIUM CHLORIDE 20MEQ/PACKET PO SCH (09:00)
[2017-09-10] MEDS: FUROSEMIDE 40MG TABLET PO SCH (09:00)
[2017-09-10] MEDS: FAMOTIDINE 20MG TABLET PO SCH ×2 (09:52→21:52)
[2017-09-10] MEDS: RIVAROXABAN 15 MG TABLET PO SCH (09:52)
[2017-09-10] MEDS: PREDNISONE 20MG TABLET PO SCH (09:52)
[2017-09-10] MEDS: LIDOCAINE 5% PATCH TOP SCH (09:58)
[2017-09-10] MEDS: LETAIRIS PO SCH (10:28)
[2017-09-10] MEDS: FERROUS SULFATE 300MG/5ML UDC PO SCH ×2 (12:39→17:42)
[2017-09-10] MEDS ORDERED: LEVOFLOXACIN 500MG TABLET PO NR (13:03)
[2017-09-10 20:00] VITALS: BP 103/45
[2017-09-11] MEDS: IPRATROPIUM/ALBUTEROL 0.5-3(2.5)MG/3ML NEB HHN SCH ×6 (00:53→19:46)
[2017-09-11] MEDS: METHYL SALICYLATE/MENTHOL CREAM 85GM TOP SCH ×4 (06:51→17:07)
[2017-09-11 08:00] VITALS: BP 118/56
[2017-09-11] MEDS: FERROUS SULFATE 300MG/5ML UDC PO SCH ×3 (08:09→17:07)
[2017-09-11] MEDS: PREDNISONE 20MG TABLET PO SCH (08:09)
[2017-09-11] MEDS: FAMOTIDINE 20MG TABLET PO SCH ×2 (08:09→22:16)
[2017-09-11] MEDS: RIVAROXABAN 15 MG TABLET PO SCH (08:09)
[2017-09-11] MEDS: FUROSEMIDE 40MG TABLET PO SCH (08:09)
[2017-09-11] MEDS: LIDOCAINE 5% PATCH TOP SCH (08:10)
[2017-09-11] MEDS: LOSARTAN POTASSIUM 25 MG TABLET PO SCH (08:10)
[2017-09-11] MEDS: LETAIRIS PO SCH (08:11)
[2017-09-11] MEDS: POTASSIUM CHLORIDE 20MEQ/PACKET PO SCH (08:11)
[2017-09-11] MEDS ORDERED: LEVOFLOXACIN 250MG TABLET PO SCH (11:00)
[2017-09-11] MEDS: BUDESONIDE 0.5MG/2ML NEB HHN SCH (11:35)
[2017-09-11] MEDS: NITROFURANTOIN 100MG M/M CAPSULE PO SCH (17:03)
[2017-09-11 20:00] VITALS: BP 122/58
[2017-09-12] MEDS: IPRATROPIUM/ALBUTEROL 0.5-3(2.5)MG/3ML NEB HHN SCH ×4 (00:15→11:39)
[2017-09-12] MEDS: METHYL SALICYLATE/MENTHOL CREAM 85GM TOP SCH ×3 (02:45→12:49)
[2017-09-12 08:00] VITALS: BP 114/46
[2017-09-12] MEDS: PREDNISONE 20MG TABLET PO SCH (08:24)
[2017-09-12] MEDS: FUROSEMIDE 40MG TABLET PO SCH (08:25)
[2017-09-12] MEDS: RIVAROXABAN 15 MG TABLET PO SCH (08:25)
[2017-09-12] MEDS: NITROFURANTOIN 100MG M/M CAPSULE PO SCH (08:25)
[2017-09-12] MEDS: LOSARTAN POTASSIUM 25 MG TABLET PO SCH (08:26)
[2017-09-12] MEDS: FAMOTIDINE 20MG TABLET PO SCH (08:27)
[2017-09-12] MEDS: FERROUS SULFATE 300MG/5ML UDC PO SCH ×3 (08:27→12:50)
[2017-09-12] MEDS: LETAIRIS PO SCH (08:27)
[2017-09-12] MEDS: LIDOCAINE 5% PATCH TOP SCH (08:28)
[2017-09-12] MEDS: POTASSIUM CHLORIDE 20MEQ/PACKET PO SCH (08:29)
[2017-09-12 12:20] VITALS: BP 114/46
[2017-09-13 10:11] LABS: 25-HYDROXY VITAMIN D3 11 ng/mL (.)
== END 2017-09-12 13:19 | disposition home health service (06) | DRG 190 ==
PROVIDERS: ADMIT Physical Medicine & Rehabilitation Spinal Cord Injury Medicine; ATTEND Family Medicine Adult Medicine
DX: J44.1 Chronic obstructive pulmonary disease with (acute) exacerbation (principal); J96.21 Acute and chronic respiratory failure with hypoxia; G62.81 Critical illness polyneuropathy; J84.9 Interstitial pulmonary disease, unspecified; I27.20 Pulmonary hypertension, unspecified; J96.22 Acute and chronic respiratory failure with hypercapnia; I50.22 Chronic systolic (congestive) heart failure; I42.9 Cardiomyopathy, unspecified; N39.0 Urinary tract infection, site not specified; R13.10 Dysphagia, unspecified; I11.0 Hypertensive heart disease with heart failure; I48.0 Paroxysmal atrial fibrillation; I49.5 Sick sinus syndrome; K76.9 Liver disease, unspecified; M17.0 Bilateral primary osteoarthritis of knee; R53.81 Other malaise; R20.0 Anesthesia of skin; E11.42 Type 2 diabetes mellitus with diabetic polyneuropathy; D64.9 Anemia, unspecified; B96.20 Unspecified Escherichia coli [E. coli] as the cause of diseases classified elsewhere; K21.9 Gastro-esophageal reflux disease without esophagitis; E87.6 Hypokalemia; R26.9 Unspecified abnormalities of gait and mobility; E78.5 Hyperlipidemia, unspecified; Z95.810 Presence of automatic (implantable) cardiac defibrillator; Z79.01 Long term (current) use of anticoagulants; Z99.81 Dependence on supplemental oxygen; Z79.899 Other long term (current) drug therapy; Z90.49 Acquired absence of other specified parts of digestive tract; Z98.41 Cataract extraction status, right eye
CPT/HCPCS: 36415; 80048; 80053; 80061; 81003; 82270; 82306; 82607; 82728; 82746; 83036; 83540; 83550; 83735; 84100; 84134; 84443; 84630; 85025; 87077; 87086; 87186; 92523; 92610; 93970; 94640; 97110; 97116; 97162; 97167; 97530; 97535; A6261; J7512; J7620; J7626

== ENCOUNTER 2018-02-16 22:21 | Emergency (ER) | payer MEDICARE, MEDICAID ==
[~2018-02-16] VITALS: Ht 162.6 cm; Wt 82.0 kg
[~2018-02-16 22:21] MED LIST changes: -COR3 PO
[2018-02-16] MEDS ORDERED: ACETAMINOPHEN WITH CODEINE 300/30MG TABLET PO ONE (23:30)
[2018-02-17 01:20] VITALS: BP 149/52
== END 2018-02-17 01:23 | disposition home or self-care (01) ==
LOC: ER 22:21
DX: M25.562 Pain in left knee (principal); M25.561 Pain in right knee; M25.512 Pain in left shoulder; M54.2 Cervicalgia; I11.0 Hypertensive heart disease with heart failure; I50.9 Heart failure, unspecified; Z88.9 Allergy status to unspecified drugs, medicaments and biological substances; Z79.899 Other long term (current) drug therapy; Z95.0 Presence of cardiac pacemaker
CPT/HCPCS: 73030; 73562; 99284

== ENCOUNTER 2018-05-28 16:10 | Inpatient (IN) | payer MEDICARE, MEDICAID ==
[~2018-05-28] VITALS: Ht 160 cm; Wt 97.5 kg
[2018-05-28 18:01] LABS: BASOPHILS % 0.7 % (0.0-2.0); CHLORIDE 102 mEq/L (98-107); EOSINOPHILS % 2.6 % (0.0-5.0); HEMATOCRIT. 40.3 % (36.0-48.0); HEMOGLOBIN. 12.6 g/dL (12.0-16.0); LYMPHOCYTES % 23.4 % (20.0-50.0); MEAN CORPUSCULAR HEMOGLOBIN 29.9 pg (28.0-32.0); MEAN CORPUSCULAR VOLUME 95.5 fL (81.0-99.0); MEAN PLATELET VOLUME 9.1 fl (7.4-10.4); MONOCYTES % 10.1 % (2.0-8.0); NEUTROPHILS % 63.2 % (40.0-76.0); PLATELET 129 x1000/uL (130-400); RED BLOOD CELL COUNT 4.22 mill/uL (4.2-5.4); RED CELL DISTRIBUTION WIDTH 15.4 % (11.6-14.6)
[2018-05-28] MEDS ORDERED: FUROSEMIDE 40MG/4ML VIAL IV ONE (18:30)
[2018-05-28] MEDS ORDERED: ASPIRIN 81MG TABLET PO ONE (18:30)
[2018-05-28 23:36] VITALS: BP 137/58
[2018-05-29] VITALS (11 sets, daily range): BP systolic 110–156; BP diastolic 46–85
[2018-05-29] MEDS ORDERED: CARVEDILOL 3.125 MG TABLET PO SCH
[2018-05-29] MEDS ORDERED: FUROSEMIDE 40MG/4ML VIAL IVP SCH ×3 (01:29→17:00)
[2018-05-29 01:45] LABS: BG BASE EXCESS 12.1 mmol/L (-2.0-2.0); BG CARBOXYHEMOGLOBIN 1.2 % (0.5-1.5); BG DEOXYHEMOGLOBIN 7.2 % (0.0-5.0); BG FRACTION INSPIRED OXYGEN 44; BG HCO3 ACT 45.1 mmol/L (22.0-26.0); BG METHEMOGLOBIN 0.2 % (0.0-1.5); BG OXYGEN SATURATION 92.7 % (92.0-98.5); BG OXYHEMOGLOBIN 91.4 % (94.0-97.0); BG PCO2 119.4 mmHg (35.0-45.0); BG PH 7.195 (7.350-7.450); BG PO2 71.6 mmHg (75.0-100.0); BG SAMPLE SITE RIGHT RADIAL; BG TOTAL HEMOGLOBIN 13.1 g/dL (12.0-18.0); BG VENT MODE NASAL CANNULA
[2018-05-29 07:19] LABS: CHLORIDE 100 mEq/L (98-107)
[2018-05-29] MEDS ORDERED: IPRATROPIUM/ALBUTEROL 0.5-3(2.5)MG/3ML NEB HHN PRN (08:15)
[2018-05-29 08:41] LABS: BG BASE EXCESS 13.9 mmol/L (-2.0-2.0); BG CARBOXYHEMOGLOBIN 1.3 % (0.5-1.5); BG DEOXYHEMOGLOBIN 6.3 % (0.0-5.0); BG FRACTION INSPIRED OXYGEN 50; BG HCO3 ACT 44.9 mmol/L (22.0-26.0); BG METHEMOGLOBIN 0.1 % (0.0-1.5); BG OXYGEN SATURATION 93.6 % (92.0-98.5); BG OXYHEMOGLOBIN 92.3 % (94.0-97.0); BG PCO2 99.9 mmHg (35.0-45.0); BG PH 7.271 (7.350-7.450); BG PO2 70.1 mmHg (75.0-100.0); BG SAMPLE SITE RIGHT RADIAL; BG TOTAL HEMOGLOBIN 12.4 g/dL (12.0-18.0); BG VENT MODE MASK - BIPAP; BG VENT RATE 18 set
[2018-05-29] MEDS: METHYLPREDNISOLONE SOD SUCC 40 MG/ML VIAL IV SCH ×2 (08:44→17:29)
[2018-05-29] MEDS: LOSARTAN POTASSIUM 50 MG TABLET PO SCH (08:45)
[2018-05-29] MEDS: IPRATROPIUM/ALBUTEROL 0.5-3(2.5)MG/3ML NEB HHN SCH ×3 (08:59→19:57)
[2018-05-29] MEDS ORDERED: MONT10TA24 MT (10:11)
[2018-05-29] MEDS ORDERED: MELO-104 MT (10:11)
[2018-05-29 16:26] LABS: CLARITY URINE CLEAR (CLEAR); COLOR URINE YELLOW (YELLOW); KETONES URINE NEGATIVE (NEGATIVE); LEUKOCYTE ESTERASE URINE NEGATIVE (NEGATIVE); NITRITE URINE NEGATIVE (NEGATIVE); OCCULT BLOOD URINE NEGATIVE (NEGATIVE); PROTEIN URINE NEGATIVE (NEGATIVE); SPECIFIC GRAVITY URINE 1.007 (1.005-1.030); UROBILINOGEN URINE 0.2 E.U./dL (0.2-1.0)
[2018-05-29] MEDS ORDERED: NON FORMULARY PATIENT HOME MED EA PO SCH (16:45)
[2018-05-29] MEDS: RIVAROXABAN 15 MG TABLET PO SCH (17:29)
[2018-05-29] MEDS: MONTELUKAST SODIUM 10MG TABLET PO SCH (17:29)
[2018-05-29 17:39] LABS: HEMATOCRIT 35.9 % (36.0-48.0); HEMOGLOBIN 11.4 g/dL (12.0-16.0); MEAN CORPUSCULAR HEMOGLOBIN 29.9 pg (28.0-32.0); MEAN CORPUSCULAR VOLUME 94.5 fL (81.0-99.0); PLATELET 125 x1000/uL (130-400); RED CELL DISTRIBUTION WIDTH 15.3 % (11.6-14.6)
[2018-05-29] MEDS: AMBRISENTAN 10MG TABLET PO SCH (19:03)
[2018-05-30] VITALS (12 sets, daily range): BP systolic 97–141; BP diastolic 41–98
[2018-05-30] MEDS: IPRATROPIUM/ALBUTEROL 0.5-3(2.5)MG/3ML NEB HHN SCH ×4 (00:40→20:29)
[2018-05-30] MEDS: METHYLPREDNISOLONE SOD SUCC 40 MG/ML VIAL IV SCH ×2 (01:05→08:46)
[2018-05-30 06:06] LABS: BASOPHILS % 0.2 % (0.0-2.0); HEMATOCRIT. 35.8 % (36.0-48.0); HEMOGLOBIN. 11.5 g/dL (12.0-16.0); LYMPHOCYTES % 8.5 % (20.0-50.0); MEAN CORPUSCULAR HEMOGLOBIN 30.1 pg (28.0-32.0); MEAN CORPUSCULAR VOLUME 93.6 fL (81.0-99.0); MEAN PLATELET VOLUME 9.5 fl (7.4-10.4); MONOCYTES % 4.2 % (2.0-8.0); NEUTROPHILS % 87.1 % (40.0-76.0); PLATELET 136 x1000/uL (130-400); RED BLOOD CELL COUNT 3.82 mill/uL (4.2-5.4); RED CELL DISTRIBUTION WIDTH 15.1 % (11.6-14.6)
[2018-05-30 06:12] LABS: CHLORIDE 94 mEq/L (98-107)
[2018-05-30] MEDS: AMBRISENTAN 10MG TABLET PO SCH (08:45)
[2018-05-30] MEDS: FUROSEMIDE 40MG/4ML VIAL IVP SCH (08:45)
[2018-05-30] MEDS: LOSARTAN POTASSIUM 50 MG TABLET PO SCH (08:46)
[2018-05-30] MEDS: MELOXICAM 7.5MG TABLET PO SCH ×2 (10:22→16:33)
[2018-05-30 11:35] LABS: BG BASE EXCESS 14.4 mmol/L (-2.0-2.0); BG CARBOXYHEMOGLOBIN 0.8 % (0.5-1.5); BG DEOXYHEMOGLOBIN 11.5 % (0.0-5.0); BG FRACTION INSPIRED OXYGEN 36; BG HCO3 ACT 42.8 mmol/L (22.0-26.0); BG METHEMOGLOBIN 0.3 % (0.0-1.5); BG OXYGEN SATURATION 88.4 % (92.0-98.5); BG OXYHEMOGLOBIN 87.4 % (94.0-97.0); BG PCO2 75.1 mmHg (35.0-45.0); BG PH 7.374 (7.350-7.450); BG PO2 55.5 mmHg (75.0-100.0); BG SAMPLE SITE RIGHT BRACHIAL; BG TOTAL HEMOGLOBIN 12.4 g/dL (12.0-18.0); BG VENT MODE NASAL CANNULA
[2018-05-30] MEDS ORDERED: POLYVINYL ALCOHOL OPHTH DROPS 15ML BOTHEYE PRN (15:15)
[2018-05-30] MEDS ORDERED: ALPRAZOLAM 0.25 MG TABLET PO PRN (15:15)
[2018-05-30] MEDS: LACTULOSE 20G/30ML UDC PO NR ×2 (16:00→16:33)
[2018-05-30] MEDS: RIVAROXABAN 15 MG TABLET PO SCH (16:33)
[2018-05-30] MEDS: PREDNISONE 20MG TABLET PO SCH (16:33)
[2018-05-30] MEDS: MONTELUKAST SODIUM 10MG TABLET PO SCH (16:33)
[2018-05-31] VITALS (9 sets, daily range): BP systolic 104–124; BP diastolic 42–62
[2018-05-31] MEDS: IPRATROPIUM/ALBUTEROL 0.5-3(2.5)MG/3ML NEB HHN SCH ×3 (01:56→13:57)
[2018-05-31 07:24] LABS: BASOPHILS % 0.2 % (0.0-2.0); HEMATOCRIT. 36.3 % (36.0-48.0); HEMOGLOBIN. 11.5 g/dL (12.0-16.0); LYMPHOCYTES % 11.6 % (20.0-50.0); MEAN CORPUSCULAR HEMOGLOBIN 29.2 pg (28.0-32.0); MEAN CORPUSCULAR VOLUME 92.1 fL (81.0-99.0); MEAN PLATELET VOLUME 9.3 fl (7.4-10.4); MONOCYTES % 12.7 % (2.0-8.0); NEUTROPHILS % 75.5 % (40.0-76.0); PLATELET 148 x1000/uL (130-400); RED BLOOD CELL COUNT 3.94 mill/uL (4.2-5.4); RED CELL DISTRIBUTION WIDTH 15.5 % (11.6-14.6)
[2018-05-31 07:48] LABS: CHLORIDE 96 mEq/L (98-107)
[2018-05-31] MEDS: AMBRISENTAN 10MG TABLET PO SCH (08:54)
[2018-05-31] MEDS: PREDNISONE 20MG TABLET PO SCH (08:54)
[2018-05-31] MEDS: LOSARTAN POTASSIUM 50 MG TABLET PO SCH (08:55)
[2018-05-31] MEDS: FUROSEMIDE 40MG/4ML VIAL IVP SCH (08:55)
[2018-05-31] MEDS: MELOXICAM 7.5MG TABLET PO SCH (08:55)
[2018-05-31] MEDS ORDERED: AZELASTINE HCL 137MCG/SPRAY NASAL PUMP BOTHNSTRLS SCH (21:00)
== END 2018-05-31 15:50 | disposition home or self-care (01) | DRG 291 ==
LOC: ER 16:10 → EDBEDREQ 17:18 → 6WST 18:40 → EDBEDREQ 18:43 → ENRESERV 21:38 → 5EST 05-29 09:37
PROVIDERS: ADMIT Internal Medicine; ATTEND Internal Medicine
PROC: 5A09357 Assistance with Respiratory Ventilation, Less than 24 Consecutive Hours, Continuous Positive Airway Pressure (ICD-10-PCS; principal; 2018-05-29)
PROC: 5A09357 Assistance with Respiratory Ventilation, Less than 24 Consecutive Hours, Continuous Positive Airway Pressure (ICD-10-PCS; 2018-05-30)
PROC: 5A09357 Assistance with Respiratory Ventilation, Less than 24 Consecutive Hours, Continuous Positive Airway Pressure (ICD-10-PCS; 2018-05-31)
DX: I11.0 Hypertensive heart disease with heart failure (principal); J96.21 Acute and chronic respiratory failure with hypoxia; J96.22 Acute and chronic respiratory failure with hypercapnia; G92 Toxic encephalopathy; J44.1 Chronic obstructive pulmonary disease with (acute) exacerbation; E87.2 Acidosis; J84.9 Interstitial pulmonary disease, unspecified; I50.43 Acute on chronic combined systolic (congestive) and diastolic (congestive) heart failure; I42.9 Cardiomyopathy, unspecified; E66.9 Obesity, unspecified; E78.5 Hyperlipidemia, unspecified; F41.0 Panic disorder [episodic paroxysmal anxiety]; I27.20 Pulmonary hypertension, unspecified; I48.0 Paroxysmal atrial fibrillation; J31.0 Chronic rhinitis; Z79.01 Long term (current) use of anticoagulants; Z99.81 Dependence on supplemental oxygen; Z95.810 Presence of automatic (implantable) cardiac defibrillator; Z79.1 Long term (current) use of non-steroidal anti-inflammatories (NSAID); Z79.899 Other long term (current) drug therapy; Z90.49 Acquired absence of other specified parts of digestive tract
CPT/HCPCS: 36415; 36600; 71045; 80048; 82140; 82375; 82805; 83880; 84484; 85027; 93005; 93306; 93970; 94640; 94660; 96374; 97110; 97162; 97167; 97530; 99285; A6261; J1940; J2920; J7512; J7620

== ENCOUNTER 2018-07-18 12:58 | Inpatient (IN) | payer MEDICARE, MEDICAID ==
[~2018-07-18] VITALS: Ht 152.4 cm; Wt 94.1 kg
[~2018-07-18 12:58] MED LIST changes: -ACET-2178 PO; +MELO-104 MT; +MONT10TA24 MT
[2018-07-18 14:34] LABS: BASOPHILS % 0.8 % (0.0-2.0); EOSINOPHILS % 3.2 % (0.0-5.0); HEMATOCRIT. 40.2 % (36.0-48.0); HEMOGLOBIN. 12.4 g/dL (12.0-16.0); LYMPHOCYTES % 22.1 % (20.0-50.0); MEAN CORPUSCULAR HEMOGLOBIN 28.2 pg (28.0-32.0); MEAN CORPUSCULAR VOLUME 91.4 fL (81.0-99.0); MEAN PLATELET VOLUME 8.6 fl (7.4-10.4); NEUTROPHILS % 59.9 % (40.0-76.0); PLATELET 153 x1000/uL (130-400); RED CELL DISTRIBUTION WIDTH 17.6 % (11.6-14.6)
[2018-07-18 14:37] LABS: CHLORIDE 100 mEq/L (98-107)
[2018-07-18 16:04] LABS: BG CARBOXYHEMOGLOBIN 1.9 % (0.5-1.5); BG DEOXYHEMOGLOBIN 8.7 % (0.0-5.0); BG FRACTION INSPIRED OXYGEN 28; BG HCO3 ACT 42.5 mmol/L (22.0-26.0); BG METHEMOGLOBIN 0.3 % (0.0-1.5); BG OXYGEN SATURATION 91.1 % (92.0-98.5); BG OXYHEMOGLOBIN 89.1 % (94.0-97.0); BG PCO2 102.7 mmHg (35.0-45.0); BG PH 7.235 (7.350-7.450); BG SAMPLE SITE RIGHT RADIAL; BG TOTAL HEMOGLOBIN 12.8 g/dL (12.0-18.0); BG VENT MODE NASAL CANNULA
[2018-07-18] MEDS ORDERED: FUROSEMIDE 40MG/4ML VIAL IVP NR (17:00)
[2018-07-19] VITALS (69 sets, daily range): BP systolic 91–145; BP diastolic 35–105
[2018-07-19] MEDS ORDERED: MAGNESIUM/ALUMINUM HYDROXIDE/SIMETHICONE 30ML UDC PO PRN (01:15)
[2018-07-19] MEDS ORDERED: GUAIFENESIN 200MG/10ML SUGAR FREE UDC PO PRN (01:15)
[2018-07-19] MEDS ORDERED: IPRATROPIUM/ALBUTEROL 0.5-3(2.5)MG/3ML NEB INH PRN (01:15)
[2018-07-19] MEDS ORDERED: ACETAMINOPHEN 325MG TABLET PO PRN (01:15)
[2018-07-19] MEDS ORDERED: ENOXAPARIN 40MG/0.4ML SYR SUBCUT SCH (01:15)
[2018-07-19] MEDS ORDERED: LORAZEPAM 1MG TABLET PO PRN (01:15)
[2018-07-19] MEDS ORDERED: DOCUSATE SODIUM 100MG CAPSULE PO PRN (01:15)
[2018-07-19] MEDS ORDERED: CLONIDINE 0.1MG TABLET PO PRN (01:15)
[2018-07-19 06:00] LABS: BG BASE EXCESS 14.7 mmol/L (-2.0-2.0); BG BILEVEL POS AIRWAY PRESSURE 15/7; BG CARBOXYHEMOGLOBIN 1.2 % (0.5-1.5); BG DEOXYHEMOGLOBIN 4.4 % (0.0-5.0); BG FRACTION INSPIRED OXYGEN 60; BG HCO3 ACT 48.1 mmol/L (22.0-26.0); BG METHEMOGLOBIN 0.4 % (0.0-1.5); BG OXYGEN SATURATION 95.5 % (92.0-98.5); BG PCO2 129.5 mmHg (35.0-45.0); BG PH 7.188 (7.350-7.450); BG PO2 86.5 mmHg (75.0-100.0); BG SAMPLE SITE LEFT BRACHIAL; BG TOTAL HEMOGLOBIN 12.6 g/dL (12.0-18.0); BG VENT MODE MASK - BIPAP; BG VENT RATE 16 set
[2018-07-19] MEDS ORDERED: SODIUM BICARBONATE 8.4% 1 MEQ/ML 50ML SYR IV SCH (06:52)
[2018-07-19] MEDS: PROPOFOL 10MG/ML 100ML 100 ML IV PRN ×3 (08:17→18:52)
[2018-07-19 08:46] LABS: BG BASE EXCESS 12.5 mmol/L (-2.0-2.0); BG CARBOXYHEMOGLOBIN 1.1 % (0.5-1.5); BG DEOXYHEMOGLOBIN 0.3 % (0.0-5.0); BG FRACTION INSPIRED OXYGEN 100; BG HCO3 ACT 41.4 mmol/L (22.0-26.0); BG METHEMOGLOBIN 0.2 % (0.0-1.5); BG OXYGEN SATURATION 99.7 % (92.0-98.5); BG OXYHEMOGLOBIN 98.4 % (94.0-97.0); BG PCO2 77.3 mmHg (35.0-45.0); BG PH 7.347 (7.350-7.450); BG PO2 363.2 mmHg (75.0-100.0); BG SAMPLE SITE RIGHT RADIAL; BG TIDAL VOLUME(mL) 500 mL; BG TOTAL HEMOGLOBIN 12.7 g/dL (12.0-18.0); BG VENT MODE VENT - A/C; BG VENT RATE 16 set
[2018-07-19] MEDS ORDERED: ENOXAPARIN 30MG/0.3ML SYR SUBCUT SCH (09:00)
[2018-07-19 09:39] LABS: *AMPHETAMINES SCREEN URINE NEGATIVE (NEGATIVE); *BARBITURATES SCREEN URINE NEGATIVE (NEGATIVE); *BENZODIAZEPINES SCREEN URINE NEGATIVE (NEGATIVE); *COCAINE SCREEN URINE NEGATIVE (NEGATIVE); METHADONE URINE SCREEN NEGATIVE (NEGATIVE)
[2018-07-19 09:40] LABS: CANNABINOID URINE SCREEN NEGATIVE (NEGATIVE); OPIATES URINE SCREEN NEGATIVE (NEGATIVE); PHENCYCLIDINE URINE SCREEN NEGATIVE (NEGATIVE)
[2018-07-19] MEDS: LOSARTAN POTASSIUM 50 MG TABLET PO SCH (10:15)
[2018-07-19 10:56] LABS: CLARITY URINE CLEAR (CLEAR); COLOR URINE YELLOW (YELLOW); KETONES URINE NEGATIVE (NEGATIVE); LEUKOCYTE ESTERASE URINE TRACE (NEGATIVE); NITRITE URINE POSITIVE (NEGATIVE); OCCULT BLOOD URINE NEGATIVE (NEGATIVE); PROTEIN URINE NEGATIVE (NEGATIVE); SPECIFIC GRAVITY URINE 1.009 (1.005-1.030); UROBILINOGEN URINE 0.2 E.U./dL (0.2-1.0)
[2018-07-19 11:11] LABS: BASOPHILS % 0.8 % (0.0-2.0); EOSINOPHILS % 1.3 % (0.0-5.0); HEMATOCRIT. 36.9 % (36.0-48.0); HEMOGLOBIN. 11.2 g/dL (12.0-16.0); LYMPHOCYTES % 17.7 % (20.0-50.0); MEAN CORPUSCULAR VOLUME 91.7 fL (81.0-99.0); MONOCYTES % 11.4 % (2.0-8.0); NEUTROPHILS % 68.8 % (40.0-76.0); PLATELET 136 x1000/uL (130-400); RED BLOOD CELL COUNT 4.02 mill/uL (4.2-5.4); RED CELL DISTRIBUTION WIDTH 17.2 % (11.6-14.6)
[2018-07-19] MEDS ORDERED: LEVOFLOXACIN 750MG PREMIX 150 ML IV SCH ×2 (11:45→13:00)
[2018-07-19] MEDS: FUROSEMIDE 20MG/2ML VIAL IVP SCH (11:51)
[2018-07-19] MEDS: PANTOPRAZOLE SODIUM 40 MG/VIAL IV SCH (11:52)
[2018-07-19 12:16] LABS: CHLORIDE 97 mEq/L (98-107)
[2018-07-19] MEDS ORDERED: ETOMIDATE 2MG/ML 10ML VIAL IV ONE (13:46)
[2018-07-19] MEDS ORDERED: SUCCINYLCHOLINE CHLORIDE 200MG/10ML IV ONE (13:46)
[2018-07-19] MEDS: CEFTRIAXONE 1 G PREMIX 50 ML IV SCH (14:04)
[2018-07-19] MEDS: ENOXAPARIN 100MG/ML SYR SUBCUT SCH ×2 (14:07→22:22)
[2018-07-19] MEDS: AZITHROMYCIN 500 MG in DEXT 5% WATER 250 ML IV SCH (14:07)
[2018-07-19 14:24] LABS: BG BASE EXCESS 15.1 mmol/L (-2.0-2.0); BG CARBOXYHEMOGLOBIN 1.5 % (0.5-1.5); BG DEOXYHEMOGLOBIN 2.7 % (0.0-5.0); BG FRACTION INSPIRED OXYGEN 60; BG HCO3 ACT 37.3 mmol/L (22.0-26.0); BG METHEMOGLOBIN 0.2 % (0.0-1.5); BG OXYGEN SATURATION 97.3 % (92.0-98.5); BG OXYHEMOGLOBIN 95.6 % (94.0-97.0); BG PCO2 36.6 mmHg (35.0-45.0); BG PH 7.626 (7.350-7.450); BG PO2 74.4 mmHg (75.0-100.0); BG SAMPLE SITE RIGHT RADIAL; BG TIDAL VOLUME(mL) 500 mL; BG TOTAL HEMOGLOBIN 12.4 g/dL (12.0-18.0); BG VENT MODE VENT - A/C; BG VENT RATE 20 set
[2018-07-19] MEDS: IPRATROPIUM/ALBUTEROL 0.5-3(2.5)MG/3ML NEB HHN SCH ×2 (15:35→20:34)
[2018-07-19 16:13] LABS: BG BASE EXCESS 13.7 mmol/L (-2.0-2.0); BG CARBOXYHEMOGLOBIN 1.1 % (0.5-1.5); BG DEOXYHEMOGLOBIN 3.3 % (0.0-5.0); BG FRACTION INSPIRED OXYGEN 60; BG HCO3 ACT 37.3 mmol/L (22.0-26.0); BG METHEMOGLOBIN 0.2 % (0.0-1.5); BG OXYGEN SATURATION 96.7 % (92.0-98.5); BG OXYHEMOGLOBIN 95.4 % (94.0-97.0); BG PCO2 42.6 mmHg (35.0-45.0); BG PO2 70.6 mmHg (75.0-100.0); BG SAMPLE SITE RIGHT RADIAL; BG TIDAL VOLUME(mL) 500 mL; BG VENT MODE VENT - A/C; BG VENT RATE 14 set
[2018-07-19] MEDS ORDERED: RIVAROXABAN 15 MG TABLET PO SCH (17:00)
[2018-07-20] VITALS (52 sets, daily range): BP systolic 84–147; BP diastolic 33–108
[2018-07-20] MEDS: PROPOFOL 10MG/ML 100ML 100 ML IV PRN ×2 (00:04→06:41)
[2018-07-20] MEDS: IPRATROPIUM/ALBUTEROL 0.5-3(2.5)MG/3ML NEB HHN SCH ×7 (00:18→23:38)
[2018-07-20 05:44] LABS: HEMATOCRIT. 37.1 % (36.0-48.0); HEMOGLOBIN. 11.5 g/dL (12.0-16.0); MEAN CORPUSCULAR HEMOGLOBIN 28.2 pg (28.0-32.0); MEAN CORPUSCULAR VOLUME 91.1 fL (81.0-99.0); MEAN PLATELET VOLUME 9.5 fl (7.4-10.4); PLATELET 83 x1000/uL (130-400); RED BLOOD CELL COUNT 4.08 mill/uL (4.2-5.4); RED CELL DISTRIBUTION WIDTH 17.9 % (11.6-14.6)
[2018-07-20 06:00] LABS: CHLORIDE 98 mEq/L (98-107)
[2018-07-20 06:05] LABS: PHOSPHORUS 2.9 mg/dL (2.5-4.9)
[2018-07-20 07:14] LABS: NUCLEATED RED BLOOD CELLS 1 /100 WBC
[2018-07-20 07:15] LABS: PLATELET ESTIMATE DECREASED
[2018-07-20 08:51] LABS: BG BASE EXCESS 7.9 mmol/L (-2.0-2.0); BG CARBOXYHEMOGLOBIN 0.3 % (0.5-1.5); BG FRACTION INSPIRED OXYGEN 60; BG HCO3 ACT 29.3 mmol/L (22.0-26.0); BG METHEMOGLOBIN 0.3 % (0.0-1.5); BG OXYHEMOGLOBIN 97.4 % (94.0-97.0); BG PCO2 30.3 mmHg (35.0-45.0); BG PH 7.603 (7.350-7.450); BG PO2 96.8 mmHg (75.0-100.0); BG SAMPLE SITE RIGHT RADIAL; BG TIDAL VOLUME(mL) 500 mL; BG TOTAL HEMOGLOBIN 11.5 g/dL (12.0-18.0); BG VENT MODE VENT - A/C; BG VENT RATE 14 set
[2018-07-20] MEDS: FUROSEMIDE 20MG/2ML VIAL IVP SCH (09:00)
[2018-07-20] MEDS: LOSARTAN POTASSIUM 50 MG TABLET PO SCH (09:00)
[2018-07-20] MEDS: CEFTRIAXONE 1 G PREMIX 50 ML IV SCH (09:00)
[2018-07-20] MEDS: PANTOPRAZOLE SODIUM 40 MG/VIAL IV SCH (09:00)
[2018-07-20] MEDS: ENOXAPARIN 100MG/ML SYR SUBCUT SCH ×2 (09:00→21:26)
[2018-07-20] MEDS: AZITHROMYCIN 500 MG in DEXT 5% WATER 250 ML IV SCH (10:00)
[2018-07-20] MEDS: PROPOFOL 10MG/ML 100ML 100 ML IV SCH (21:25)
[2018-07-21] VITALS (95 sets, daily range): BP systolic 55–155; BP diastolic 34–89
[2018-07-21] MEDS: IPRATROPIUM/ALBUTEROL 0.5-3(2.5)MG/3ML NEB HHN SCH ×5 (03:51→20:36)
[2018-07-21] MEDS: PROPOFOL 10MG/ML 100ML 100 ML IV SCH ×2 (03:51→10:19)
[2018-07-21 06:40] LABS: BASOPHILS % 0.6 % (0.0-2.0); EOSINOPHILS % 4.2 % (0.0-5.0); HEMATOCRIT. 38.1 % (36.0-48.0); LYMPHOCYTES % 23.4 % (20.0-50.0); MEAN CORPUSCULAR HEMOGLOBIN 27.5 pg (28.0-32.0); MEAN CORPUSCULAR VOLUME 87.5 fL (81.0-99.0); MEAN PLATELET VOLUME 8.9 fl (7.4-10.4); MONOCYTES % 14.1 % (2.0-8.0); NEUTROPHILS % 57.7 % (40.0-76.0); PLATELET 143 x1000/uL (130-400); RED BLOOD CELL COUNT 4.35 mill/uL (4.2-5.4); RED CELL DISTRIBUTION WIDTH 17.3 % (11.6-14.6)
[2018-07-21 06:59] LABS: CHLORIDE 98 mEq/L (98-107)
[2018-07-21] MEDS: FUROSEMIDE 20MG/2ML VIAL IVP SCH (08:59)
[2018-07-21] MEDS: PANTOPRAZOLE SODIUM 40 MG/VIAL IV SCH (08:59)
[2018-07-21] MEDS: CEFTRIAXONE 1 G PREMIX 50 ML IV SCH (09:00)
[2018-07-21] MEDS: ENOXAPARIN 100MG/ML SYR SUBCUT SCH ×2 (09:02→20:47)
[2018-07-21] MEDS: AZITHROMYCIN 500 MG in DEXT 5% WATER 250 ML IV SCH (10:15)
[2018-07-21] MEDS ORDERED: POTASSIUM CHLORIDE INJ 40 MEQ in DEXT 5% WATER 250 ML IV SCH (11:00)
[2018-07-21] MEDS: LOSARTAN POTASSIUM 50 MG TABLET PO SCH (13:49)
[2018-07-21 15:01] LABS: BG BASE EXCESS 8.2 mmol/L (-2.0-2.0); BG CARBOXYHEMOGLOBIN 0.4 % (0.5-1.5); BG DEOXYHEMOGLOBIN 7.2 % (0.0-5.0); BG FRACTION INSPIRED OXYGEN 40; BG HCO3 ACT 31.2 mmol/L (22.0-26.0); BG METHEMOGLOBIN 0.4 % (0.0-1.5); BG OXYGEN SATURATION 92.7 % (92.0-98.5); BG PCO2 37.4 mmHg (35.0-45.0); BG PH 7.539 (7.350-7.450); BG PO2 61.7 mmHg (75.0-100.0); BG SAMPLE SITE RIGHT BRACHIAL; BG TIDAL VOLUME(mL) 500 mL; BG TOTAL HEMOGLOBIN 12.6 g/dL (12.0-18.0); BG VENT MODE VENT - A/C; BG VENT RATE 14 set
[2018-07-21] MEDS: PROPOFOL 10MG/ML 100ML 100 ML IV PRN ×2 (15:34→20:49)
[2018-07-22] VITALS (91 sets, daily range): BP systolic 79–137; BP diastolic 39–66
[2018-07-22] MEDS: IPRATROPIUM/ALBUTEROL 0.5-3(2.5)MG/3ML NEB HHN SCH ×6 (01:12→20:26)
[2018-07-22] MEDS: PROPOFOL 10MG/ML 100ML 100 ML IV PRN ×4 (02:29→21:47)
[2018-07-22 05:55] LABS: BASOPHILS % 0.1 % (0.0-2.0); EOSINOPHILS % 3.9 % (0.0-5.0); HEMATOCRIT. 36.2 % (36.0-48.0); HEMOGLOBIN. 11.4 g/dL (12.0-16.0); LYMPHOCYTES % 12.9 % (20.0-50.0); MEAN CORPUSCULAR HEMOGLOBIN 27.5 pg (28.0-32.0); MEAN CORPUSCULAR VOLUME 87.6 fL (81.0-99.0); MEAN PLATELET VOLUME 9.1 fl (7.4-10.4); MONOCYTES % 12.3 % (2.0-8.0); NEUTROPHILS % 70.8 % (40.0-76.0); PLATELET 140 x1000/uL (130-400); RED BLOOD CELL COUNT 4.14 mill/uL (4.2-5.4); RED CELL DISTRIBUTION WIDTH 17.4 % (11.6-14.6)
[2018-07-22 06:09] LABS: CHLORIDE 101 mEq/L (98-107)
[2018-07-22] MEDS: FUROSEMIDE 20MG/2ML VIAL IVP SCH (08:53)
[2018-07-22] MEDS: CEFTRIAXONE 1 G PREMIX 50 ML IV SCH (08:54)
[2018-07-22] MEDS: ENOXAPARIN 100MG/ML SYR SUBCUT SCH ×2 (08:54→21:46)
[2018-07-22] MEDS: PANTOPRAZOLE SODIUM 40 MG/VIAL IV SCH (08:54)
[2018-07-22] MEDS: LOSARTAN POTASSIUM 50 MG TABLET PO SCH (08:55)
[2018-07-22 09:55] LABS: BG BASE EXCESS 8.4 mmol/L (-2.0-2.0); BG CARBOXYHEMOGLOBIN 1.2 % (0.5-1.5); BG DEOXYHEMOGLOBIN 6.4 % (0.0-5.0); BG FRACTION INSPIRED OXYGEN 45; BG HCO3 ACT 34.5 mmol/L (22.0-26.0); BG METHEMOGLOBIN 0.3 % (0.0-1.5); BG OXYGEN SATURATION 93.5 % (92.0-98.5); BG OXYHEMOGLOBIN 92.1 % (94.0-97.0); BG PCO2 54.7 mmHg (35.0-45.0); BG PH 7.418 (7.350-7.450); BG PO2 70.7 mmHg (75.0-100.0); BG SAMPLE SITE RIGHT RADIAL; BG TIDAL VOLUME(mL) 500 mL; BG TOTAL HEMOGLOBIN 12.3 g/dL (12.0-18.0); BG VENT MODE VENT - A/C; BG VENT RATE 12 set
[2018-07-22] MEDS ORDERED: POTASSIUM CHLORIDE 20MEQ/PACKET PO ONE (10:00)
[2018-07-22] MEDS ORDERED: KCL 20MEQ/100ML PREMIX 100 ML IV ONE (10:00)
[2018-07-22] MEDS: METHYLPREDNISOLONE SOD SUCC 40 MG/ML VIAL IV SCH ×2 (10:53→21:45)
[2018-07-22] MEDS ORDERED: POTASSIUM CHLORIDE INJ 40 MEQ in DEXT 5% WATER 250 ML IV NR (11:00)
[2018-07-22] MEDS: CEFAZOLIN 1000MG PREMIX 50 ML IV SCH ×2 (12:29→21:45)
[2018-07-23] VITALS (90 sets, daily range): BP systolic 32–144; BP diastolic 24–107
[2018-07-23] MEDS: IPRATROPIUM/ALBUTEROL 0.5-3(2.5)MG/3ML NEB HHN SCH ×6 (00:32→20:55)
[2018-07-23] MEDS: PROPOFOL 10MG/ML 100ML 100 ML IV PRN ×2 (02:50→08:54)
[2018-07-23] MEDS: CEFAZOLIN 1000MG PREMIX 50 ML IV SCH (04:11)
[2018-07-23 05:32] LABS: BASOPHILS % 0.2 % (0.0-2.0); EOSINOPHILS % 0.1 % (0.0-5.0); HEMATOCRIT. 41.2 % (36.0-48.0); HEMOGLOBIN. 12.8 g/dL (12.0-16.0); MEAN CORPUSCULAR HEMOGLOBIN 27.5 pg (28.0-32.0); MEAN CORPUSCULAR VOLUME 88.6 fL (81.0-99.0); MEAN PLATELET VOLUME 9.2 fl (7.4-10.4); MONOCYTES % 6.9 % (2.0-8.0); NEUTROPHILS % 70.8 % (40.0-76.0); PLATELET 126 x1000/uL (130-400); RED BLOOD CELL COUNT 4.65 mill/uL (4.2-5.4); RED CELL DISTRIBUTION WIDTH 17.6 % (11.6-14.6)
[2018-07-23 05:39] LABS: CHLORIDE 101 mEq/L (98-107)
[2018-07-23] MEDS: PANTOPRAZOLE SODIUM 40 MG/VIAL IV SCH (08:52)
[2018-07-23] MEDS: POTASSIUM CHLORIDE 20MEQ TABLET SR PO SCH (08:52)
[2018-07-23] MEDS: LOSARTAN POTASSIUM 50 MG TABLET PO SCH (08:52)
[2018-07-23] MEDS: METHYLPREDNISOLONE SOD SUCC 40 MG/ML VIAL IV SCH ×2 (08:52→21:22)
[2018-07-23] MEDS: ENOXAPARIN 100MG/ML SYR SUBCUT SCH ×2 (08:55→21:23)
[2018-07-23] MEDS ORDERED: AZITHROMYCIN 500 MG in DEXT 5% WATER 250 ML IV SCH (10:45)
[2018-07-23] MEDS ORDERED: CEFEPIME 1,000 MG in DEXTROSE 5% WATER 50 ML IV SCH (10:45)
[2018-07-23] MEDS ORDERED: LORAZEPAM 2MG/ML CPJ IV PRN (11:00)
[2018-07-23] MEDS ORDERED: METRONIDAZOLE 500 MG PREMIX 100 ML IV SCH (11:00)
[2018-07-23] MEDS: FUROSEMIDE 20MG/2ML VIAL IVP SCH (11:35)
[2018-07-23] MEDS: PIPERACILLIN/TAZ 3.375G PREMIX 50 ML IV SCH ×2 (13:05→18:05)
[2018-07-23 13:10] LABS: BG BASE EXCESS 7.5 mmol/L (-2.0-2.0); BG CARBOXYHEMOGLOBIN 0.9 % (0.5-1.5); BG DEOXYHEMOGLOBIN 5.3 % (0.0-5.0); BG FRACTION INSPIRED OXYGEN 45; BG METHEMOGLOBIN 0.2 % (0.0-1.5); BG OXYGEN SATURATION 94.6 % (92.0-98.5); BG OXYHEMOGLOBIN 93.6 % (94.0-97.0); BG PCO2 62.2 mmHg (35.0-45.0); BG PH 7.368 (7.350-7.450); BG PO2 78.7 mmHg (75.0-100.0); BG PRESSURE SUPPORT 8; BG SAMPLE SITE LEFT BRACHIAL; BG TOTAL HEMOGLOBIN 13.6 g/dL (12.0-18.0); BG VENT MODE VENT - CPAP
[2018-07-23] MEDS ORDERED: VANCOMYCIN 1500MG in DEXTROSE 5% WATER 250ML IV SCH (15:00)
[2018-07-23] MEDS ORDERED: DIGOXIN 500MCG/2ML AMP IV NR (16:45)
[2018-07-24] VITALS (53 sets, daily range): BP systolic 102–131; BP diastolic 46–69
[2018-07-24] MEDS: IPRATROPIUM/ALBUTEROL 0.5-3(2.5)MG/3ML NEB HHN SCH ×7 (00:33→23:52)
[2018-07-24] MEDS: PIPERACILLIN/TAZ 3.375G PREMIX 50 ML IV SCH ×4 (00:44→21:26)
[2018-07-24] MEDS: METHYLPREDNISOLONE SOD SUCC 40 MG/ML VIAL IV SCH (08:32)
[2018-07-24] MEDS: PANTOPRAZOLE SODIUM 40 MG/VIAL IV SCH (08:32)
[2018-07-24] MEDS: POTASSIUM CHLORIDE 20MEQ TABLET SR PO SCH (08:33)
[2018-07-24] MEDS: LOSARTAN POTASSIUM 50 MG TABLET PO SCH (08:33)
[2018-07-24] MEDS: FUROSEMIDE 20MG/2ML VIAL IVP SCH (08:33)
[2018-07-24] MEDS: ENOXAPARIN 100MG/ML SYR SUBCUT SCH ×2 (08:34→21:26)
[2018-07-24] MEDS ORDERED: VANCOMYCIN 750 MG PREMIX 150 ML IV SCH (09:00)
[2018-07-24 09:44] LABS: BASOPHILS % 0.7 % (0.0-2.0); EOSINOPHILS % 0.4 % (0.0-5.0); HEMATOCRIT. 39.9 % (36.0-48.0); HEMOGLOBIN. 12.3 g/dL (12.0-16.0); MEAN CORPUSCULAR HEMOGLOBIN 27.7 pg (28.0-32.0); MEAN CORPUSCULAR VOLUME 89.4 fL (81.0-99.0); MEAN PLATELET VOLUME 9.4 fl (7.4-10.4); NEUTROPHILS % 72.9 % (40.0-76.0); PLATELET 157 x1000/uL (130-400); RED BLOOD CELL COUNT 4.46 mill/uL (4.2-5.4); RED CELL DISTRIBUTION WIDTH 18.1 % (11.6-14.6)
[2018-07-24 09:48] LABS: CHLORIDE 103 mEq/L (98-107)
[2018-07-25] VITALS (12 sets, daily range): BP systolic 98–142; BP diastolic 41–73
[2018-07-25] MEDS ORDERED: VANCOMYCIN 750 MG PREMIX 150 ML IV SCH
[2018-07-25] MEDS: PIPERACILLIN/TAZ 3.375G PREMIX 50 ML IV SCH ×4 (01:25→20:41)
[2018-07-25] MEDS: IPRATROPIUM/ALBUTEROL 0.5-3(2.5)MG/3ML NEB HHN SCH ×6 (04:56→23:43)
[2018-07-25 05:42] LABS: BASOPHILS % 0.7 % (0.0-2.0); EOSINOPHILS % 4.1 % (0.0-5.0); HEMATOCRIT. 39.1 % (36.0-48.0); HEMOGLOBIN. 12.1 g/dL (12.0-16.0); LYMPHOCYTES % 24.4 % (20.0-50.0); MEAN CORPUSCULAR HEMOGLOBIN 27.8 pg (28.0-32.0); MEAN CORPUSCULAR VOLUME 89.3 fL (81.0-99.0); MEAN PLATELET VOLUME 8.9 fl (7.4-10.4); MONOCYTES % 13.7 % (2.0-8.0); NEUTROPHILS % 57.1 % (40.0-76.0); PLATELET 144 x1000/uL (130-400); RED BLOOD CELL COUNT 4.37 mill/uL (4.2-5.4); RED CELL DISTRIBUTION WIDTH 17.4 % (11.6-14.6)
[2018-07-25 06:02] LABS: CHLORIDE 102 mEq/L (98-107)
[2018-07-25] MEDS: PANTOPRAZOLE SODIUM 40 MG/VIAL IV SCH (08:40)
[2018-07-25] MEDS: POTASSIUM CHLORIDE 20MEQ TABLET SR PO SCH (08:41)
[2018-07-25] MEDS: ENOXAPARIN 100MG/ML SYR SUBCUT SCH ×2 (08:41→20:41)
[2018-07-25] MEDS: FUROSEMIDE 20MG/2ML VIAL IVP SCH (08:41)
[2018-07-25] MEDS: LOSARTAN POTASSIUM 50 MG TABLET PO SCH (08:41)
[2018-07-25] MEDS ORDERED: PREDNISONE 20MG TABLET PO SCH (09:00)
[2018-07-25] MEDS: VANCOMYCIN 1250MG in DEXTROSE 5% WATER 250ML IV SCH (18:56)
[2018-07-26] VITALS (10 sets, daily range): BP systolic 107–130; BP diastolic 51–74
[2018-07-26] MEDS: PIPERACILLIN/TAZ 3.375G PREMIX 50 ML IV SCH ×3 (02:44→14:24)
[2018-07-26] MEDS: IPRATROPIUM/ALBUTEROL 0.5-3(2.5)MG/3ML NEB HHN SCH ×3 (04:08→12:11)
[2018-07-26 06:47] LABS: HEMATOCRIT. 39.4 % (36.0-48.0); HEMOGLOBIN. 12.1 g/dL (12.0-16.0); MEAN CORPUSCULAR HEMOGLOBIN 27.5 pg (28.0-32.0); MEAN CORPUSCULAR VOLUME 89.3 fL (81.0-99.0); MEAN PLATELET VOLUME 9.2 fl (7.4-10.4); PLATELET 138 x1000/uL (130-400); RED BLOOD CELL COUNT 4.41 mill/uL (4.2-5.4); RED CELL DISTRIBUTION WIDTH 17.8 % (11.6-14.6)
[2018-07-26 07:48] LABS: PLATELET ESTIMATE NORMAL
[2018-07-26] MEDS ORDERED: PREDNISONE 20MG TABLET PO SCH (09:00)
[2018-07-26] MEDS: POTASSIUM CHLORIDE 20MEQ TABLET SR PO SCH (09:19)
[2018-07-26] MEDS: PANTOPRAZOLE SODIUM 40 MG/VIAL IV SCH (09:20)
[2018-07-26] MEDS: FUROSEMIDE 20MG/2ML VIAL IVP SCH (09:20)
[2018-07-26] MEDS: LOSARTAN POTASSIUM 50 MG TABLET PO SCH (09:20)
[2018-07-26] MEDS: ENOXAPARIN 100MG/ML SYR SUBCUT SCH (09:20)
[2018-07-26 10:55] LABS: CHLORIDE 100 mEq/L (98-107)
[2018-07-26] MEDS: VANCOMYCIN 1250MG in DEXTROSE 5% WATER 250ML IV SCH (11:44)
== END 2018-07-26 16:28 | DRG 870 ==
LOC: ER 12:58 → EDBEDREQSVC 16:12 → EDBEDREQ 16:12 → 3WST 17:14 → EDBEDREQ 17:17 → ENRESERV 22:32 → MICUSO 07-19 07:01 → 5EST 07-24 13:21
PROVIDERS: ADMIT Family Medicine Adult Medicine; ATTEND Family Medicine Adult Medicine
PROC: 5A09357 Assistance with Respiratory Ventilation, Less than 24 Consecutive Hours, Continuous Positive Airway Pressure (ICD-10-PCS; 2018-07-18)
PROC: 5A1955Z Respiratory Ventilation, Greater than 96 Consecutive Hours (ICD-10-PCS; principal; 2018-07-19)
PROC: 0BH18EZ Insertion of Endotracheal Airway into Trachea, Via Natural or Artificial Opening Endoscopic (ICD-10-PCS; 2018-07-19)
PROC: 02HV33Z Insertion of Infusion Device into Superior Vena Cava, Percutaneous Approach (ICD-10-PCS; 2018-07-19)
PROC: B548ZZA Ultrasonography of Superior Vena Cava, Guidance (ICD-10-PCS; 2018-07-19)
PROC: 4B02XTZ Measurement of Cardiac Defibrillator, External Approach (ICD-10-PCS; 2018-07-22)
DX: A41.9 Sepsis, unspecified organism (principal); J96.22 Acute and chronic respiratory failure with hypercapnia; J18.9 Pneumonia, unspecified organism; J96.21 Acute and chronic respiratory failure with hypoxia; J44.1 Chronic obstructive pulmonary disease with (acute) exacerbation; I50.22 Chronic systolic (congestive) heart failure; N39.0 Urinary tract infection, site not specified; I42.9 Cardiomyopathy, unspecified; E87.2 Acidosis; J44.0 Chronic obstructive pulmonary disease with (acute) lower respiratory infection; T82.110A Breakdown (mechanical) of cardiac electrode, initial encounter; K21.9 Gastro-esophageal reflux disease without esophagitis; I44.7 Left bundle-branch block, unspecified; R13.10 Dysphagia, unspecified; G31.84 Mild cognitive impairment of uncertain or unknown etiology; L98.9 Disorder of the skin and subcutaneous tissue, unspecified; H54.7 Unspecified visual loss; B96.20 Unspecified Escherichia coli [E. coli] as the cause of diseases classified elsewhere; I27.20 Pulmonary hypertension, unspecified; E78.5 Hyperlipidemia, unspecified; I11.0 Hypertensive heart disease with heart failure; I87.8 Other specified disorders of veins; I48.0 Paroxysmal atrial fibrillation; E11.9 Type 2 diabetes mellitus without complications; F41.9 Anxiety disorder, unspecified; M17.0 Bilateral primary osteoarthritis of knee; E87.6 Hypokalemia; L30.9 Dermatitis, unspecified; Y83.1 Surgical operation with implant of artificial internal device as the cause of abnormal reaction of the patient, or of later complication, without mention of misadventure at the time of the procedure; Y92.238 Other place in hospital as the place of occurrence of the external cause; Z99.81 Dependence on supplemental oxygen; Z90.49 Acquired absence of other specified parts of digestive tract; Z95.810 Presence of automatic (implantable) cardiac defibrillator; Z87.440 Personal history of urinary (tract) infections; Z79.01 Long term (current) use of anticoagulants; Z79.899 Other long term (current) drug therapy; Z78.1 Physical restraint status
CPT/HCPCS: 31500; 36415; 36569; 36600; 71045; 71275; 76937; 80048; 80202; 80305; 82375; 82805; 82962; 83735; 83880; 84100; 84478; 84484; 87070; 87077; 87186; 87804; 92610; 93005; 93306; 93970; 94002; 94003; 94640; 94660; 96365; 96375; 97110; 97116; 97162; 97166; 97530; 99291; A6261; C1725; C9113; J0330; J0456; J0690; J0696; J1650; J1940; J1956; J2543; J2704; J2920; J3370; J3480; J3490; J7050; J7060; J7512; J7620; A4315

== ENCOUNTER 2018-07-26 16:50 | Inpatient (IN) | payer MEDICARE, MEDICAID ==
[~2018-07-26] VITALS: Ht 152.4 cm; Wt 96.4 kg
[2018-07-26 16:50] VITALS: BP 124/67
[2018-07-26] MEDS ORDERED: GUAIFENESIN 200MG/10ML SUGAR FREE UDC PO PRN (18:15)
[2018-07-26] MEDS ORDERED: IPRATROPIUM/ALBUTEROL 0.5-3(2.5)MG/3ML NEB HHN PRN (18:15)
[2018-07-26] MEDS ORDERED: MAGNESIUM/ALUMINUM HYDROXIDE/SIMETHICONE 30ML UDC PO PRN (18:15)
[2018-07-26] MEDS ORDERED: CLONIDINE 0.1MG TABLET PO PRN (18:15)
[2018-07-26] MEDS ORDERED: ACETAMINOPHEN 650MG/20.3ML UDC PO PRN (18:15)
[2018-07-26] MEDS ORDERED: DOCUSATE SODIUM 100MG CAPSULE PO PRN (18:15)
[2018-07-26] MEDS: IPRATROPIUM/ALBUTEROL 0.5-3(2.5)MG/3ML NEB HHN SCH ×2 (19:56→23:47)
[2018-07-26 20:00] VITALS: BP 132/68
[2018-07-26] MEDS: ENOXAPARIN 100MG/ML SYR SUBCUT SCH (21:30)
[2018-07-26] MEDS: PIPERACILLIN/TAZ 3.375G PREMIX 50 ML IV SCH (22:29)
[2018-07-27] MEDS: PIPERACILLIN/TAZ 3.375G PREMIX 50 ML IV SCH ×4 (03:45→20:46)
[2018-07-27] MEDS: IPRATROPIUM/ALBUTEROL 0.5-3(2.5)MG/3ML NEB HHN SCH ×5 (04:20→20:48)
[2018-07-27 07:40] LABS: BASOPHILS % 1.3 % (0.0-2.0); EOSINOPHILS % 4.4 % (0.0-5.0); HEMATOCRIT. 40.9 % (36.0-48.0); HEMOGLOBIN. 12.6 g/dL (12.0-16.0); LYMPHOCYTES % 31.7 % (20.0-50.0); MEAN CORPUSCULAR HEMOGLOBIN 27.3 pg (28.0-32.0); MEAN CORPUSCULAR VOLUME 88.4 fL (81.0-99.0); MONOCYTES % 14.8 % (2.0-8.0); NEUTROPHILS % 47.8 % (40.0-76.0); PLATELET 141 x1000/uL (130-400); RED BLOOD CELL COUNT 4.63 mill/uL (4.2-5.4); RED CELL DISTRIBUTION WIDTH 17.5 % (11.6-14.6)
[2018-07-27 07:52] LABS: CHLORIDE 100 mEq/L (98-107)
[2018-07-27 08:14] VITALS: BP 111/63
[2018-07-27] MEDS: PANTOPRAZOLE SODIUM 40 MG/VIAL IV SCH (09:17)
[2018-07-27] MEDS: POTASSIUM CHLORIDE 20MEQ TABLET SR PO SCH (09:17)
[2018-07-27] MEDS: ENOXAPARIN 100MG/ML SYR SUBCUT SCH ×2 (09:17→20:47)
[2018-07-27] MEDS: PREDNISONE 20MG TABLET PO SCH (09:17)
[2018-07-27] MEDS: LOSARTAN POTASSIUM 50 MG TABLET PO SCH (09:17)
[2018-07-27] MEDS: FUROSEMIDE 20MG/2ML VIAL IVP SCH (09:17)
[2018-07-27 14:23] LABS: CLARITY URINE CLEAR (CLEAR); COLOR URINE YELLOW (YELLOW); KETONES URINE NEGATIVE (NEGATIVE); LEUKOCYTE ESTERASE URINE NEGATIVE (NEGATIVE); NITRITE URINE NEGATIVE (NEGATIVE); OCCULT BLOOD URINE NEGATIVE (NEGATIVE); PROTEIN URINE NEGATIVE (NEGATIVE); SPECIFIC GRAVITY URINE 1.008 (1.005-1.030); UROBILINOGEN URINE 0.2 E.U./dL (0.2-1.0)
[2018-07-27 20:00] VITALS: BP 117/60
[2018-07-27] MEDS ORDERED: PIPERACILLIN/TAZ 3.375G PREMIX 50 ML IV SCH (20:00)
[2018-07-28] MEDS: IPRATROPIUM/ALBUTEROL 0.5-3(2.5)MG/3ML NEB HHN SCH ×5 (00:49→21:19)
[2018-07-28] MEDS: PIPERACILLIN/TAZ 3.375G PREMIX 50 ML IV SCH ×4 (02:36→21:35)
[2018-07-28 07:51] LABS: BASOPHILS % 1.6 % (0.0-2.0); EOSINOPHILS % 5.4 % (0.0-5.0); HEMATOCRIT. 41.4 % (36.0-48.0); HEMOGLOBIN. 12.8 g/dL (12.0-16.0); LYMPHOCYTES % 42.3 % (20.0-50.0); MEAN CORPUSCULAR HEMOGLOBIN 27.5 pg (28.0-32.0); MEAN CORPUSCULAR VOLUME 88.7 fL (81.0-99.0); MEAN PLATELET VOLUME 9.2 fl (7.4-10.4); MONOCYTES % 13.5 % (2.0-8.0); NEUTROPHILS % 37.2 % (40.0-76.0); PLATELET 142 x1000/uL (130-400); RED BLOOD CELL COUNT 4.66 mill/uL (4.2-5.4); RED CELL DISTRIBUTION WIDTH 17.3 % (11.6-14.6)
[2018-07-28 08:21] VITALS: BP 134/68
[2018-07-28] MEDS: POTASSIUM CHLORIDE 20MEQ TABLET SR PO SCH (08:48)
[2018-07-28] MEDS: ENOXAPARIN 100MG/ML SYR SUBCUT SCH ×2 (08:48→21:36)
[2018-07-28] MEDS: LOSARTAN POTASSIUM 50 MG TABLET PO SCH (08:49)
[2018-07-28] MEDS: PREDNISONE 20MG TABLET PO SCH (08:49)
[2018-07-28] MEDS: PANTOPRAZOLE SODIUM 40 MG/VIAL IV SCH (08:49)
[2018-07-28] MEDS: FUROSEMIDE 20MG/2ML VIAL IVP SCH (08:49)
[2018-07-28 09:26] LABS: CHLORIDE 98 mEq/L (98-107)
[2018-07-28 09:35] LABS: PHOSPHORUS 3.6 mg/dL (2.5-4.9); TOTAL IRON BINDING CAPACITY 315 ug/dL (250-450)
[2018-07-28 09:38] LABS: FOLIC ACID (FOLATE) SERUM 7.5 ng/mL (>5.38)
[2018-07-28 20:00] VITALS: BP 118/59
[2018-07-29] MEDS: IPRATROPIUM/ALBUTEROL 0.5-3(2.5)MG/3ML NEB HHN SCH ×7 (00:45→23:57)
[2018-07-29] MEDS: PIPERACILLIN/TAZ 3.375G PREMIX 50 ML IV SCH ×4 (05:18→22:12)
[2018-07-29 08:31] VITALS: BP 116/60
[2018-07-29] MEDS ORDERED: FAMOTIDINE 20MG TABLET PO SCH (09:00)
[2018-07-29] MEDS: FUROSEMIDE 20MG/2ML VIAL IVP SCH (09:42)
[2018-07-29] MEDS: LOSARTAN POTASSIUM 50 MG TABLET PO SCH (09:43)
[2018-07-29] MEDS: POTASSIUM CHLORIDE 20MEQ TABLET SR PO SCH (09:43)
[2018-07-29] MEDS: PREDNISONE 20MG TABLET PO SCH (09:43)
[2018-07-29] MEDS: ENOXAPARIN 100MG/ML SYR SUBCUT SCH ×2 (09:44→22:11)
[2018-07-29] MEDS ORDERED: LACTULOSE 20G/30ML UDC PO NR (16:00)
[2018-07-29 20:00] VITALS: BP 108/56
[2018-07-29] MEDS: BUDESONIDE 0.5MG/2ML NEB HHN SCH (20:17)
[2018-07-29] MEDS: AMLODIPINE 2.5MG TABLET PO SCH (21:00)
[2018-07-29] MEDS: FAMOTIDINE 20MG TABLET PO SCH (22:11)
[2018-07-30] MEDS: PIPERACILLIN/TAZ 3.375G PREMIX 50 ML IV SCH ×4 (02:36→21:58)
[2018-07-30] MEDS: IPRATROPIUM/ALBUTEROL 0.5-3(2.5)MG/3ML NEB HHN SCH ×4 (04:00→19:53)
[2018-07-30] MEDS: BUDESONIDE 0.5MG/2ML NEB HHN SCH ×3 (04:00→19:53)
[2018-07-30 07:39] LABS: BASOPHILS % 1.2 % (0.0-2.0); EOSINOPHILS % 4.2 % (0.0-5.0); HEMATOCRIT. 39.7 % (36.0-48.0); HEMOGLOBIN. 12.5 g/dL (12.0-16.0); LYMPHOCYTES % 36.3 % (20.0-50.0); MEAN CORPUSCULAR HEMOGLOBIN 27.6 pg (28.0-32.0); MEAN CORPUSCULAR VOLUME 87.4 fL (81.0-99.0); MEAN PLATELET VOLUME 9.2 fl (7.4-10.4); MONOCYTES % 11.8 % (2.0-8.0); NEUTROPHILS % 46.5 % (40.0-76.0); PLATELET 147 x1000/uL (130-400); RED BLOOD CELL COUNT 4.55 mill/uL (4.2-5.4); RED CELL DISTRIBUTION WIDTH 17.6 % (11.6-14.6)
[2018-07-30] MEDS: FUROSEMIDE 20MG/2ML VIAL IVP SCH (09:04)
[2018-07-30] MEDS: LOSARTAN POTASSIUM 50 MG TABLET PO SCH (09:04)
[2018-07-30] MEDS: AMLODIPINE 2.5MG TABLET PO SCH ×2 (09:04→21:00)
[2018-07-30] MEDS: POTASSIUM CHLORIDE 20MEQ TABLET SR PO SCH (09:04)
[2018-07-30] MEDS: ENOXAPARIN 100MG/ML SYR SUBCUT SCH ×2 (09:04→21:58)
[2018-07-30 10:00] LABS: CHLORIDE 99 mEq/L (98-107)
[2018-07-30 20:00] VITALS: BP 100/58
[2018-07-30] MEDS: FAMOTIDINE 20MG TABLET PO SCH (21:58)
[2018-07-31] MEDS: IPRATROPIUM/ALBUTEROL 0.5-3(2.5)MG/3ML NEB HHN SCH ×6 (00:06→21:13)
[2018-07-31] MEDS: BUDESONIDE 0.5MG/2ML NEB HHN SCH ×2 (07:44→21:09)
[2018-07-31 08:00] VITALS: BP 121/66
[2018-07-31] MEDS: LOSARTAN POTASSIUM 50 MG TABLET PO SCH (09:00)
[2018-07-31] MEDS: AMLODIPINE 2.5MG TABLET PO SCH ×2 (09:00→21:10)
[2018-07-31] MEDS: POTASSIUM CHLORIDE 20MEQ TABLET SR PO SCH (09:01)
[2018-07-31] MEDS: FUROSEMIDE 20MG/2ML VIAL IVP SCH (09:01)
[2018-07-31] MEDS: ENOXAPARIN 100MG/ML SYR SUBCUT SCH (09:01)
[2018-07-31] MEDS: APIXABAN 5 MG TABLET PO SCH (18:13)
[2018-07-31 20:00] VITALS: BP 110/65
[2018-07-31] MEDS: FAMOTIDINE 20MG TABLET PO SCH (21:10)
[2018-08-01] MEDS: IPRATROPIUM/ALBUTEROL 0.5-3(2.5)MG/3ML NEB HHN SCH ×6 (01:10→20:00)
[2018-08-01 06:36] LABS: BASOPHILS % 0.9 % (0.0-2.0); EOSINOPHILS % 5.4 % (0.0-5.0); HEMATOCRIT. 42.7 % (36.0-48.0); HEMOGLOBIN. 13.4 g/dL (12.0-16.0); LYMPHOCYTES % 31.9 % (20.0-50.0); MEAN CORPUSCULAR HEMOGLOBIN 27.7 pg (28.0-32.0); MEAN CORPUSCULAR VOLUME 88.5 fL (81.0-99.0); MEAN PLATELET VOLUME 9.7 fl (7.4-10.4); MONOCYTES % 9.6 % (2.0-8.0); NEUTROPHILS % 52.2 % (40.0-76.0); PLATELET 174 x1000/uL (130-400); RED BLOOD CELL COUNT 4.83 mill/uL (4.2-5.4); RED CELL DISTRIBUTION WIDTH 18.5 % (11.6-14.6)
[2018-08-01] MEDS: BUDESONIDE 0.5MG/2ML NEB HHN SCH (07:36)
[2018-08-01 07:45] LABS: CHLORIDE 98 mEq/L (98-107)
[2018-08-01 08:00] VITALS: BP 129/64
[2018-08-01] MEDS: LOSARTAN POTASSIUM 50 MG TABLET PO SCH (08:59)
[2018-08-01] MEDS: AMLODIPINE 2.5MG TABLET PO SCH ×2 (09:00→20:25)
[2018-08-01] MEDS: FUROSEMIDE 20MG TABLET PO SCH ×2 (09:00→20:26)
[2018-08-01] MEDS: POTASSIUM CHLORIDE 20MEQ TABLET SR PO SCH (09:00)
[2018-08-01] MEDS: APIXABAN 5 MG TABLET PO SCH ×2 (09:00→18:38)
[2018-08-01 20:00] VITALS: BP 129/69
[2018-08-01] MEDS: FAMOTIDINE 20MG TABLET PO SCH (20:26)
[2018-08-02] MEDS: IPRATROPIUM/ALBUTEROL 0.5-3(2.5)MG/3ML NEB HHN SCH ×6 (01:33→21:10)
[2018-08-02 04:14] LABS: 25-HYDROXY VITAMIN D3 10 ng/mL (.)
[2018-08-02 08:19] VITALS: BP 134/65
[2018-08-02] MEDS: AMLODIPINE 2.5MG TABLET PO SCH ×2 (08:20→21:28)
[2018-08-02] MEDS: POTASSIUM CHLORIDE 20MEQ TABLET SR PO SCH (08:20)
[2018-08-02] MEDS: LOSARTAN POTASSIUM 50 MG TABLET PO SCH (08:20)
[2018-08-02] MEDS: APIXABAN 5 MG TABLET PO SCH ×2 (08:20→18:20)
[2018-08-02] MEDS: FUROSEMIDE 20MG TABLET PO SCH ×2 (08:20→21:28)
[2018-08-02] MEDS ORDERED: ERGOCALCIFEROL 50000UNITS CAPSULE PO SCH (13:00)
[2018-08-02 20:00] VITALS: BP 118/57
[2018-08-02] MEDS: FAMOTIDINE 20MG TABLET PO SCH (21:28)
[2018-08-03] MEDS: IPRATROPIUM/ALBUTEROL 0.5-3(2.5)MG/3ML NEB HHN SCH ×5 (01:28→20:22)
[2018-08-03 08:00] VITALS: BP 110/52
[2018-08-03] MEDS: FUROSEMIDE 20MG TABLET PO SCH ×2 (08:43→20:21)
[2018-08-03] MEDS: LOSARTAN POTASSIUM 50 MG TABLET PO SCH (08:43)
[2018-08-03] MEDS: POTASSIUM CHLORIDE 20MEQ TABLET SR PO SCH (08:43)
[2018-08-03] MEDS: APIXABAN 5 MG TABLET PO SCH ×2 (08:43→17:23)
[2018-08-03] MEDS: AMLODIPINE 2.5MG TABLET PO SCH ×2 (08:44→20:21)
[2018-08-03 20:00] VITALS: BP 114/62
[2018-08-03] MEDS: FAMOTIDINE 20MG TABLET PO SCH (20:21)
[2018-08-04] MEDS: IPRATROPIUM/ALBUTEROL 0.5-3(2.5)MG/3ML NEB HHN SCH ×5 (00:27→20:43)
[2018-08-04 08:08] VITALS: BP 146/59
[2018-08-04] MEDS: POTASSIUM CHLORIDE 20MEQ TABLET SR PO SCH (08:24)
[2018-08-04] MEDS: AMLODIPINE 2.5MG TABLET PO SCH ×2 (08:25→20:04)
[2018-08-04] MEDS: APIXABAN 5 MG TABLET PO SCH ×2 (08:25→17:19)
[2018-08-04] MEDS: LOSARTAN POTASSIUM 50 MG TABLET PO SCH (08:25)
[2018-08-04] MEDS: FUROSEMIDE 20MG TABLET PO SCH ×2 (08:25→20:04)
[2018-08-04 20:00] VITALS: BP 122/59
[2018-08-04] MEDS: FAMOTIDINE 20MG TABLET PO SCH (20:05)
[2018-08-05] MEDS: IPRATROPIUM/ALBUTEROL 0.5-3(2.5)MG/3ML NEB HHN SCH ×6 (00:24→20:50)
[2018-08-05 08:27] VITALS: BP 128/68
[2018-08-05] MEDS: LOSARTAN POTASSIUM 50 MG TABLET PO SCH (08:27)
[2018-08-05] MEDS: APIXABAN 5 MG TABLET PO SCH ×2 (08:27→17:10)
[2018-08-05] MEDS: FUROSEMIDE 20MG TABLET PO SCH ×2 (08:27→21:19)
[2018-08-05] MEDS: AMLODIPINE 2.5MG TABLET PO SCH ×2 (08:28→21:00)
[2018-08-05] MEDS: POTASSIUM CHLORIDE 20MEQ TABLET SR PO SCH (08:30)
[2018-08-05] MEDS ORDERED: AMLO5TAB4 MT (14:16)
[2018-08-05] MEDS ORDERED: AMBR10TA3 PO (14:19)
[2018-08-05] MEDS ORDERED: MONT10TA21 PO (14:20)
[2018-08-05] MEDS ORDERED: FURO-151 PO (14:28)
[2018-08-05] MEDS ORDERED: COR3 PO (14:30)
[2018-08-05 15:55] LABS: HEMATOCRIT 45.7 % (36.0-48.0); HEMOGLOBIN 14.1 g/dL (12.0-16.0); MEAN CORPUSCULAR HEMOGLOBIN 27.8 pg (28.0-32.0); MEAN CORPUSCULAR VOLUME 90.5 fL (81.0-99.0); PLATELET 159 x1000/uL (130-400); RED BLOOD CELL COUNT 5.05 mill/uL (4.2-5.4)
[2018-08-05 15:56] LABS: CHLORIDE 98 mEq/L (98-107)
[2018-08-05 16:02] LABS: PHOSPHORUS 3.4 mg/dL (2.5-4.9)
[2018-08-05 20:00] VITALS: BP 118/59
[2018-08-05] MEDS: FAMOTIDINE 20MG TABLET PO SCH (21:19)
[2018-08-06] MEDS: IPRATROPIUM/ALBUTEROL 0.5-3(2.5)MG/3ML NEB HHN SCH ×4 (04:05→11:45)
[2018-08-06 07:25] LABS: CHLORIDE 100 mEq/L (98-107)
[2018-08-06 07:27] LABS: BASOPHILS % 1.4 % (0.0-2.0); EOSINOPHILS % 5.8 % (0.0-5.0); HEMATOCRIT. 40.9 % (36.0-48.0); LYMPHOCYTES % 21.5 % (20.0-50.0); MEAN PLATELET VOLUME 9.4 fl (7.4-10.4); MONOCYTES % 12.4 % (2.0-8.0); NEUTROPHILS % 58.9 % (40.0-76.0); PLATELET 169 x1000/uL (130-400); RED BLOOD CELL COUNT 4.65 mill/uL (4.2-5.4); RED CELL DISTRIBUTION WIDTH 18.5 % (11.6-14.6)
[2018-08-06 08:00] VITALS: BP 113/52
[2018-08-06] MEDS: LOSARTAN POTASSIUM 50 MG TABLET PO SCH (09:24)
[2018-08-06] MEDS: APIXABAN 5 MG TABLET PO SCH (09:24)
[2018-08-06] MEDS: AMLODIPINE 2.5MG TABLET PO SCH (09:24)
[2018-08-06] MEDS: FUROSEMIDE 20MG TABLET PO SCH (09:24)
== END 2018-08-06 15:50 | disposition home health service (06) | DRG 189 ==
PROVIDERS: ADMIT Physical Medicine & Rehabilitation Spinal Cord Injury Medicine; ATTEND Family Medicine Adult Medicine
DX: J96.22 Acute and chronic respiratory failure with hypercapnia (principal); G92 Toxic encephalopathy; I50.23 Acute on chronic systolic (congestive) heart failure; J44.1 Chronic obstructive pulmonary disease with (acute) exacerbation; I42.9 Cardiomyopathy, unspecified; N39.0 Urinary tract infection, site not specified; J44.0 Chronic obstructive pulmonary disease with (acute) lower respiratory infection; J84.9 Interstitial pulmonary disease, unspecified; R53.81 Other malaise; I48.0 Paroxysmal atrial fibrillation; R13.10 Dysphagia, unspecified; F41.9 Anxiety disorder, unspecified; K21.9 Gastro-esophageal reflux disease without esophagitis; B96.20 Unspecified Escherichia coli [E. coli] as the cause of diseases classified elsewhere; E11.9 Type 2 diabetes mellitus without complications; E78.5 Hyperlipidemia, unspecified; H54.7 Unspecified visual loss; I11.0 Hypertensive heart disease with heart failure; I27.22 Pulmonary hypertension due to left heart disease; I87.8 Other specified disorders of veins; M17.0 Bilateral primary osteoarthritis of knee; Z95.810 Presence of automatic (implantable) cardiac defibrillator; L98.9 Disorder of the skin and subcutaneous tissue, unspecified; Z99.81 Dependence on supplemental oxygen; Z87.440 Personal history of urinary (tract) infections; F03.90 Unspecified dementia, unspecified severity, without behavioral disturbance, psychotic disturbance, mood disturbance, and anxiety; E86.9 Volume depletion, unspecified; I44.7 Left bundle-branch block, unspecified; Z79.01 Long term (current) use of anticoagulants; I49.5 Sick sinus syndrome; R19.00 Intra-abdominal and pelvic swelling, mass and lump, unspecified site
CPT/HCPCS: 36415; 80048; 82306; 82607; 82728; 82746; 83540; 83550; 83735; 84100; 84134; 84443; 85027; 92523; 92610; 93005; 93970; 94640; 97110; 97112; 97116; 97162; 97167; 97530; 97535; A6261; C9113; G0515; J1650; J1940; J2543; J7040; J7512; J7620; J7626

== ENCOUNTER 2018-10-18 10:44 | Inpatient (IN) | payer MEDICARE, MEDICAID ==
[2018-10-18] VITALS (34 sets, daily range): BP systolic 92–130; BP diastolic 33–74
[~2018-10-18] VITALS: Ht 157.5 cm; Wt 92.7 kg
[~2018-10-18 10:44] MED LIST changes: +AMLO5TAB4 MT; +COR3 PO; -LOSA50TA20 PO; -MELO-104 MT; +MONT10TA21 PO; -MONT10TA24 MT; -XAR15 PO
[2018-10-18] MEDS ORDERED: ALBUTEROL (0.083%) 2.5MG/3ML NEB HHN STA (11:02)
[2018-10-18] MEDS ORDERED: METHYLPREDNISOLONE SOD SUCC 125 MG/2 ML VIAL IV STA (11:02)
[2018-10-18] MEDS ORDERED: IPRATROPIUM BROMIDE (0.02%) 0.5MG/2.5ML NEB HHN STA (11:02)
[2018-10-18] MEDS ORDERED: SODIUM CHLORIDE 0.9% 500 ML IV ONE (11:02)
[2018-10-18] MEDS ORDERED: NITROGLYCERIN OINT 1GM/INCH UDPKT TD ONE (11:15)
[2018-10-18] MEDS ORDERED: PIPERACILLIN/TAZ 3.375G PREMIX 50 ML IV ONE (11:15)
[2018-10-18] MEDS ORDERED: ASPIRIN 81MG TABLET PO ONE (11:15)
[2018-10-18] MEDS ORDERED: VANCOMYCIN 1 G PREMIX 200 ML IV ONE (11:15)
[2018-10-18] MEDS ORDERED: FUROSEMIDE 40MG/4ML VIAL IV ONE (11:15)
[2018-10-18 11:27] LABS: HEMATOCRIT. 39.8 % (36.0-48.0); HEMOGLOBIN. 12.4 g/dL (12.0-16.0); MEAN CORPUSCULAR HEMOGLOBIN 29.3 pg (28.0-32.0); MEAN PLATELET VOLUME 8.4 fl (7.4-10.4); PLATELET 140 x1000/uL (130-400); RED BLOOD CELL COUNT 4.23 mill/uL (4.2-5.4); RED CELL DISTRIBUTION WIDTH 18.4 % (11.6-14.6)
[2018-10-18 11:33] LABS: BG BASE EXCESS 7.8 mmol/L (-2.0-2.0); BG CARBOXYHEMOGLOBIN 1.9 % (0.5-1.5); BG DEOXYHEMOGLOBIN 5.8 % (0.0-5.0); BG FRACTION INSPIRED OXYGEN 32; BG HCO3 ACT 40.5 mmol/L (22.0-26.0); BG METHEMOGLOBIN 0.2 % (0.0-1.5); BG OXYGEN SATURATION 94.1 % (92.0-98.5); BG OXYHEMOGLOBIN 92.1 % (94.0-97.0); BG PCO2 118.5 mmHg (35.0-45.0); BG PH 7.152 (7.350-7.450); BG PO2 78.4 mmHg (75.0-100.0); BG SAMPLE SITE LEFT BRACHIAL; BG TOTAL HEMOGLOBIN 12.5 g/dL (12.0-18.0); BG VENT MODE NASAL CANNULA
[2018-10-18 11:37] LABS: PARTIAL THROMBOPLASTIN TIME 29.7 sec (23.4-31.0); PROTHROMBIN TIME 10.3 sec (9.6-11.0)
[2018-10-18 11:50] LABS: CHLORIDE 103 mEq/L (98-107)
[2018-10-18 12:23] LABS: ATYPICAL LYMPHOCYTES 1; NUCLEATED RED BLOOD CELLS 1 /100 WBC
[2018-10-18 12:24] LABS: PLATELET ESTIMATE NORMAL
[2018-10-18 13:08] LABS: CLARITY URINE CLEAR (CLEAR); COLOR URINE YELLOW (YELLOW); KETONES URINE NEGATIVE (NEGATIVE); LEUKOCYTE ESTERASE URINE TRACE (NEGATIVE); NITRITE URINE NEGATIVE (NEGATIVE); OCCULT BLOOD URINE NEGATIVE (NEGATIVE); PROTEIN URINE NEGATIVE (NEGATIVE); UROBILINOGEN URINE 0.2 E.U./dL (0.2-1.0)
[2018-10-18 13:16] LABS: BG BILEVEL POS AIRWAY PRESSURE 18/5; BG CARBOXYHEMOGLOBIN 1.1 % (0.5-1.5); BG FRACTION INSPIRED OXYGEN 50; BG HCO3 ACT 43.2 mmol/L (22.0-26.0); BG METHEMOGLOBIN 0.4 % (0.0-1.5); BG OXYGEN SATURATION 94.9 % (92.0-98.5); BG OXYHEMOGLOBIN 93.5 % (94.0-97.0); BG PCO2 122.7 mmHg (35.0-45.0); BG PH 7.164 (7.350-7.450); BG PO2 85.7 mmHg (75.0-100.0); BG SAMPLE SITE RIGHT RADIAL; BG TOTAL HEMOGLOBIN 12.8 g/dL (12.0-18.0); BG VENT MODE MASK - BIPAP; BG VENT RATE 20 set
[2018-10-18] MEDS ORDERED: PROPOFOL 10MG/ML 100ML 100 ML IV SCH (13:30)
[2018-10-18] MEDS ORDERED: ETOMIDATE 2MG/ML 10ML VIAL IV ONE (13:30)
[2018-10-18] MEDS ORDERED: SUCCINYLCHOLINE CHLORIDE 200MG/10ML IV ONE (13:30)
[2018-10-18] MEDS ORDERED: FUROSEMIDE 40MG/4ML VIAL IVP SCH (15:15)
[2018-10-18] MEDS ORDERED: IPRATROPIUM/ALBUTEROL 0.5-3(2.5)MG/3ML NEB HHN PRN (15:15)
[2018-10-18 15:46] LABS: BG BASE EXCESS 4.5 mmol/L (-2.0-2.0); BG CARBOXYHEMOGLOBIN 0.9 % (0.5-1.5); BG DEOXYHEMOGLOBIN 4.9 % (0.0-5.0); BG FRACTION INSPIRED OXYGEN 40; BG HCO3 ACT 31.1 mmol/L (22.0-26.0); BG METHEMOGLOBIN 0.5 % (0.0-1.5); BG OXYHEMOGLOBIN 93.7 % (94.0-97.0); BG PCO2 55.2 mmHg (35.0-45.0); BG PH 7.368 (7.350-7.450); BG PO2 73.6 mmHg (75.0-100.0); BG SAMPLE SITE RIGHT RADIAL; BG TIDAL VOLUME(mL) 500 mL; BG TOTAL HEMOGLOBIN 12.5 g/dL (12.0-18.0); BG VENT MODE VENT - A/C; BG VENT RATE 14 set
[2018-10-18] MEDS ORDERED: DIPHENHYDRAMINE 50MG/ML VIAL IV PRN (17:30)
[2018-10-18] MEDS ORDERED: DOCUSATE SODIUM 100MG CAPSULE PO PRN (17:30)
[2018-10-18] MEDS ORDERED: NA PHOS,M-B/NA PHOS,DI-BA ENEMA 118ML PR PRN (17:30)
[2018-10-18] MEDS ORDERED: ACETAMINOPHEN 650MG SUPP PR PRN (17:30)
[2018-10-18] MEDS ORDERED: CLONIDINE 0.1MG TABLET PO PRN (17:30)
[2018-10-18] MEDS ORDERED: DEXTROSE 50% WATER 50ML SYRINGE IV PRN ×2 (17:30)
[2018-10-18] MEDS: FUROSEMIDE 40MG/4ML VIAL IVP SCH (17:32)
[2018-10-18] MEDS ORDERED: CEFTRIAXONE 2 G in DEXTROSE 5% WATER 50 ML IV SCH (18:00)
[2018-10-18] MEDS ORDERED: APIX5TAB PO (18:19)
[2018-10-18] MEDS: IPRATROPIUM/ALBUTEROL 0.5-3(2.5)MG/3ML NEB HHN SCH ×2 (20:19→23:48)
[2018-10-18 20:29] LABS: *AMPHETAMINES SCREEN URINE NEGATIVE (NEGATIVE); *BARBITURATES SCREEN URINE NEGATIVE (NEGATIVE); *BENZODIAZEPINES SCREEN URINE NEGATIVE (NEGATIVE); *COCAINE SCREEN URINE NEGATIVE (NEGATIVE); METHADONE URINE SCREEN NEGATIVE (NEGATIVE); OPIATES URINE SCREEN NEGATIVE (NEGATIVE)
[2018-10-18 20:30] LABS: PHENCYCLIDINE URINE SCREEN NEGATIVE (NEGATIVE)
[2018-10-18 20:32] LABS: CANNABINOID URINE SCREEN NEGATIVE (NEGATIVE)
[2018-10-18] MEDS ORDERED: BLOOD SUGAR DIAGNOSTIC STRIP TEST SCH (21:00)
[2018-10-18] MEDS: AMLODIPINE 5MG TABLET PO SCH (21:00)
[2018-10-18] MEDS ORDERED: ENOXAPARIN 60MG/0.6ML SYR SUBCUT SCH (21:00)
[2018-10-18] MEDS: CARVEDILOL 3.125 MG TABLET PO SCH (21:00)
[2018-10-18] MEDS: CEFTRIAXONE 2 G in DEXTROSE 5% WATER 50 ML IV SCH (21:09)
[2018-10-18] MEDS: PROPOFOL 10MG/ML 100ML 100 ML IV PRN (21:21)
[2018-10-18] MEDS ORDERED: DEXT 5% IV PRN (21:49)
[2018-10-18] MEDS ORDERED: NOREPINEPHRINE IV PRN (21:49)
[2018-10-18] MEDS ORDERED: WATER IV PRN (21:49)
[2018-10-18] MEDS ORDERED: INSULIN GLARGINE UD 100 UNITS/ML SYR SUBCUT SCH (22:00)
[2018-10-19] VITALS (93 sets, daily range): BP systolic 91–143; BP diastolic 38–89
[2018-10-19] MEDS: IPRATROPIUM/ALBUTEROL 0.5-3(2.5)MG/3ML NEB HHN SCH ×5 (04:14→20:15)
[2018-10-19 05:50] LABS: HEMOGLOBIN. 11.1 g/dL (12.0-16.0); MEAN CORPUSCULAR HEMOGLOBIN 29.4 pg (28.0-32.0); MEAN CORPUSCULAR VOLUME 90.7 fL (81.0-99.0); MEAN PLATELET VOLUME 9.8 fl (7.4-10.4); PLATELET 89 x1000/uL (130-400); RED BLOOD CELL COUNT 3.75 mill/uL (4.2-5.4); RED CELL DISTRIBUTION WIDTH 18.2 % (11.6-14.6)
[2018-10-19 06:45] LABS: CHLORIDE 101 mEq/L (98-107)
[2018-10-19 07:07] LABS: LDL CHOLESTEROL 53 mg/dL (5-100); PHOSPHORUS 3.2 mg/dL (2.5-4.9)
[2018-10-19 07:09] LABS: HDL CHOLESTEROL 48 mg/dL (40-59)
[2018-10-19 08:18] LABS: BG BASE EXCESS 11.9 mmol/L (-2.0-2.0); BG CARBOXYHEMOGLOBIN 0.6 % (0.5-1.5); BG DEOXYHEMOGLOBIN 5.4 % (0.0-5.0); BG FRACTION INSPIRED OXYGEN 40; BG HCO3 ACT 36.3 mmol/L (22.0-26.0); BG METHEMOGLOBIN 0.3 % (0.0-1.5); BG OXYGEN SATURATION 94.6 % (92.0-98.5); BG OXYHEMOGLOBIN 93.7 % (94.0-97.0); BG PCO2 46.1 mmHg (35.0-45.0); BG PH 7.514 (7.350-7.450); BG PO2 73.9 mmHg (75.0-100.0); BG SAMPLE SITE RIGHT RADIAL; BG TIDAL VOLUME(mL) 500 mL; BG TOTAL HEMOGLOBIN 11.7 g/dL (12.0-18.0); BG VENT MODE VENT - A/C; BG VENT RATE 14 set
[2018-10-19] MEDS: AMLODIPINE 5MG TABLET PO SCH ×2 (09:00→20:52)
[2018-10-19] MEDS: CARVEDILOL 3.125 MG TABLET PO SCH ×2 (09:00→20:51)
[2018-10-19 09:28] LABS: PLATELET ESTIMATE DECREASED
[2018-10-19] MEDS ORDERED: ENOXAPARIN 100MG/ML SYR SUBCUT SCH (09:50)
[2018-10-19] MEDS: FUROSEMIDE 40MG/4ML VIAL IVP SCH (10:01)
[2018-10-19] MEDS: PANTOPRAZOLE SODIUM 40 MG/VIAL IV SCH (10:01)
[2018-10-19] MEDS: PROPOFOL 10MG/ML 100ML 100 ML IV PRN ×3 (10:21→23:07)
[2018-10-19] MEDS ORDERED: MORPHINE SULFATE 4 MG/ML CPJ (NOT FOR IM USE) IV PRN (10:45)
[2018-10-19] MEDS: LORAZEPAM 2MG/ML CPJ IV PRN (10:58)
[2018-10-19] MEDS ORDERED: ACETAMINOPHEN 650MG/20.3ML UDC PO PRN (12:15)
[2018-10-19] MEDS: APIXABAN 5 MG TABLET PO SCH ×2 (12:31→20:52)
[2018-10-19] MEDS ORDERED: ACETAZOLAMIDE 250MG TABLET NG SCH (13:00)
[2018-10-19] MEDS ORDERED: METOCLOPRAMIDE HCL 10MG/2ML VIAL IV SCH (14:00)
[2018-10-19] MEDS ORDERED: GUAIFENESIN-DM 200MG-20MG/10ML UDC PO PRN (18:00)
[2018-10-19] MEDS: CEFTRIAXONE 2 G in DEXTROSE 5% WATER 50 ML IV SCH (20:51)
[2018-10-20] VITALS (92 sets, daily range): BP systolic 93–141; BP diastolic 40–74
[2018-10-20] MEDS: IPRATROPIUM/ALBUTEROL 0.5-3(2.5)MG/3ML NEB HHN SCH ×6 (00:19→21:24)
[2018-10-20] MEDS: PROPOFOL 10MG/ML 100ML 100 ML IV PRN ×3 (03:28→19:18)
[2018-10-20 05:41] LABS: BASOPHILS % 0.6 % (0.0-2.0); EOSINOPHILS % 3.9 % (0.0-5.0); HEMATOCRIT. 34.2 % (36.0-48.0); LYMPHOCYTES % 26.7 % (20.0-50.0); MEAN CORPUSCULAR VOLUME 89.8 fL (81.0-99.0); MEAN PLATELET VOLUME 8.9 fl (7.4-10.4); MONOCYTES % 13.9 % (2.0-8.0); NEUTROPHILS % 54.9 % (40.0-76.0); PLATELET 148 x1000/uL (130-400); RED BLOOD CELL COUNT 3.81 mill/uL (4.2-5.4); RED CELL DISTRIBUTION WIDTH 18.1 % (11.6-14.6)
[2018-10-20 06:13] LABS: CHLORIDE 102 mEq/L (98-107)
[2018-10-20 07:50] LABS: BG BASE EXCESS 7.2 mmol/L (-2.0-2.0); BG DEOXYHEMOGLOBIN 6.7 % (0.0-5.0); BG METHEMOGLOBIN 0.2 % (0.0-1.5); BG OXYGEN SATURATION 93.3 % (92.0-98.5); BG OXYHEMOGLOBIN 93.1 % (94.0-97.0); BG PCO2 52.6 mmHg (35.0-45.0); BG PH 7.416 (7.350-7.450); BG PO2 69.5 mmHg (75.0-100.0); BG SAMPLE SITE RIGHT BRACHIAL; BG TIDAL VOLUME(mL) 500 mL; BG VENT MODE VENT - A/C; BG VENT RATE 12 set
[2018-10-20] MEDS: PANTOPRAZOLE SODIUM 40 MG/VIAL IV SCH (08:45)
[2018-10-20] MEDS: FUROSEMIDE 40MG/4ML VIAL IVP SCH (08:45)
[2018-10-20] MEDS: APIXABAN 5 MG TABLET PO SCH ×2 (08:45→21:04)
[2018-10-20] MEDS: LORAZEPAM 2MG/ML CPJ IV PRN (11:14)
[2018-10-20] MEDS: CARVEDILOL 3.125 MG TABLET PO SCH ×2 (11:16→21:04)
[2018-10-20] MEDS ORDERED: KCL 20MEQ/100ML PREMIX 100 ML IV SCH (11:30)
[2018-10-20] MEDS: CEFTRIAXONE 2 G in DEXTROSE 5% WATER 50 ML IV SCH (21:03)
[2018-10-21] VITALS (84 sets, daily range): BP systolic 79–148; BP diastolic 26–107
[2018-10-21] MEDS: PROPOFOL 10MG/ML 100ML 100 ML IV PRN ×2 (00:05→05:30)
[2018-10-21] MEDS: IPRATROPIUM/ALBUTEROL 0.5-3(2.5)MG/3ML NEB HHN SCH ×7 (00:39→23:38)
[2018-10-21 05:46] LABS: HEMATOCRIT. 36.2 % (36.0-48.0); HEMOGLOBIN. 11.8 g/dL (12.0-16.0); MEAN CORPUSCULAR HEMOGLOBIN 29.4 pg (28.0-32.0); MEAN CORPUSCULAR VOLUME 90.5 fL (81.0-99.0); MEAN PLATELET VOLUME 9.1 fl (7.4-10.4); PLATELET 156 x1000/uL (130-400); RED CELL DISTRIBUTION WIDTH 18.3 % (11.6-14.6)
[2018-10-21 05:54] LABS: CHLORIDE 106 mEq/L (98-107)
[2018-10-21 07:35] LABS: PLATELET ESTIMATE NORMAL
[2018-10-21 08:16] LABS: BG CARBOXYHEMOGLOBIN 0.3 % (0.5-1.5); BG DEOXYHEMOGLOBIN 5.3 % (0.0-5.0); BG FRACTION INSPIRED OXYGEN 45; BG HCO3 ACT 30.1 mmol/L (22.0-26.0); BG METHEMOGLOBIN 0.3 % (0.0-1.5); BG OXYGEN SATURATION 94.7 % (92.0-98.5); BG OXYHEMOGLOBIN 94.1 % (94.0-97.0); BG PCO2 52.2 mmHg (35.0-45.0); BG PH 7.379 (7.350-7.450); BG PO2 74.4 mmHg (75.0-100.0); BG SAMPLE SITE RIGHT RADIAL; BG TIDAL VOLUME(mL) 500 mL; BG TOTAL HEMOGLOBIN 11.8 g/dL (12.0-18.0); BG VENT MODE VENT - A/C; BG VENT RATE 12 set
[2018-10-21] MEDS: CARVEDILOL 3.125 MG TABLET PO SCH ×2 (09:00→20:51)
[2018-10-21] MEDS: POTASSIUM CHLORIDE 20MEQ/PACKET PO SCH (09:00)
[2018-10-21] MEDS: FUROSEMIDE 40MG/4ML VIAL IVP SCH (09:00)
[2018-10-21] MEDS: PANTOPRAZOLE SODIUM 40 MG/VIAL IV SCH (09:00)
[2018-10-21] MEDS: APIXABAN 5 MG TABLET PO SCH ×2 (09:00→20:51)
[2018-10-21] MEDS ORDERED: FUROSEMIDE 20MG/2ML VIAL IVP NR (10:00)
[2018-10-21 11:33] LABS: BG CARBOXYHEMOGLOBIN 0.3 % (0.5-1.5); BG DEOXYHEMOGLOBIN 6.6 % (0.0-5.0); BG FRACTION INSPIRED OXYGEN 45; BG HCO3 ACT 31.7 mmol/L (22.0-26.0); BG METHEMOGLOBIN 0.2 % (0.0-1.5); BG OXYGEN SATURATION 93.4 % (92.0-98.5); BG OXYHEMOGLOBIN 92.9 % (94.0-97.0); BG PCO2 55.8 mmHg (35.0-45.0); BG PH 7.372 (7.350-7.450); BG PO2 71.3 mmHg (75.0-100.0); BG PRESSURE SUPPORT 8; BG SAMPLE SITE RIGHT RADIAL; BG TOTAL HEMOGLOBIN 12.9 g/dL (12.0-18.0); BG VENT MODE VENT - CPAP
[2018-10-21] MEDS: CEFTRIAXONE 2 G in DEXTROSE 5% WATER 50 ML IV SCH (20:51)
[2018-10-22] VITALS (24 sets, daily range): BP systolic 99–121; BP diastolic 42–63
[2018-10-22] MEDS: IPRATROPIUM/ALBUTEROL 0.5-3(2.5)MG/3ML NEB HHN SCH ×6 (03:58→23:52)
[2018-10-22 05:33] LABS: HEMATOCRIT. 35.8 % (36.0-48.0); HEMOGLOBIN. 11.5 g/dL (12.0-16.0); MEAN CORPUSCULAR HEMOGLOBIN 29.4 pg (28.0-32.0); MEAN PLATELET VOLUME 9.1 fl (7.4-10.4); PLATELET 147 x1000/uL (130-400); RED BLOOD CELL COUNT 3.93 mill/uL (4.2-5.4); RED CELL DISTRIBUTION WIDTH 17.6 % (11.6-14.6)
[2018-10-22 05:36] LABS: CHLORIDE 104 mEq/L (98-107)
[2018-10-22] MEDS: CARVEDILOL 3.125 MG TABLET PO SCH ×2 (08:47→21:00)
[2018-10-22] MEDS: PANTOPRAZOLE SODIUM 40 MG/VIAL IV SCH (08:58)
[2018-10-22] MEDS: FUROSEMIDE 40MG/4ML VIAL IVP SCH (08:58)
[2018-10-22] MEDS: POTASSIUM CHLORIDE 20MEQ/PACKET PO SCH (08:58)
[2018-10-22] MEDS: APIXABAN 5 MG TABLET PO SCH ×2 (08:58→21:18)
[2018-10-22 10:11] LABS: PLATELET ESTIMATE NORMAL
[2018-10-22] MEDS: POLYVINYL ALCOHOL OPHTH DROPS 15ML BOTHEYE PRN ×2 (10:54→18:13)
[2018-10-22] MEDS: LETAIRIS (AMBRISENTAN) 10MG TABLET PO SCH (13:52)
[2018-10-22] MEDS: CEFTRIAXONE 2 G in DEXTROSE 5% WATER 50 ML IV SCH (21:18)
[2018-10-23] VITALS (8 sets, daily range): BP systolic 115–130; BP diastolic 51–70
[2018-10-23] MEDS: IPRATROPIUM/ALBUTEROL 0.5-3(2.5)MG/3ML NEB HHN SCH ×5 (04:05→20:53)
[2018-10-23 06:55] LABS: BASOPHILS % 0.7 % (0.0-2.0); EOSINOPHILS % 7.2 % (0.0-5.0); HEMATOCRIT. 36.3 % (36.0-48.0); HEMOGLOBIN. 11.9 g/dL (12.0-16.0); LYMPHOCYTES % 15.8 % (20.0-50.0); MEAN CORPUSCULAR HEMOGLOBIN 29.8 pg (28.0-32.0); MEAN PLATELET VOLUME 8.9 fl (7.4-10.4); MONOCYTES % 13.1 % (2.0-8.0); NEUTROPHILS % 63.2 % (40.0-76.0); PLATELET 161 x1000/uL (130-400); RED BLOOD CELL COUNT 3.99 mill/uL (4.2-5.4); RED CELL DISTRIBUTION WIDTH 17.7 % (11.6-14.6)
[2018-10-23 07:34] LABS: CHLORIDE 103 mEq/L (98-107)
[2018-10-23] MEDS: POTASSIUM CHLORIDE 20MEQ/PACKET PO SCH (08:25)
[2018-10-23] MEDS: FUROSEMIDE 40MG/4ML VIAL IVP SCH (08:25)
[2018-10-23] MEDS: APIXABAN 5 MG TABLET PO SCH ×2 (08:25→21:10)
[2018-10-23] MEDS: PANTOPRAZOLE SODIUM 40 MG/VIAL IV SCH (08:25)
[2018-10-23] MEDS: CARVEDILOL 3.125 MG TABLET PO SCH ×2 (08:26→21:00)
[2018-10-23] MEDS: LETAIRIS (AMBRISENTAN) 10MG TABLET PO SCH (08:38)
[2018-10-23] MEDS: POLYVINYL ALCOHOL OPHTH DROPS 15ML BOTHEYE PRN (17:54)
[2018-10-23] MEDS: CEFTRIAXONE 2 G in DEXTROSE 5% WATER 50 ML IV SCH (21:10)
[2018-10-24] VITALS: BP 121/51
[2018-10-24] MEDS: IPRATROPIUM/ALBUTEROL 0.5-3(2.5)MG/3ML NEB HHN SCH ×4 (00:42→11:57)
[2018-10-24 04:00] VITALS: BP 111/47
[2018-10-24 07:27] LABS: BASOPHILS % 0.7 % (0.0-2.0); EOSINOPHILS % 7.1 % (0.0-5.0); HEMATOCRIT. 37.7 % (36.0-48.0); LYMPHOCYTES % 19.6 % (20.0-50.0); MEAN CORPUSCULAR HEMOGLOBIN 29.1 pg (28.0-32.0); MEAN CORPUSCULAR VOLUME 91.5 fL (81.0-99.0); MEAN PLATELET VOLUME 9.1 fl (7.4-10.4); MONOCYTES % 12.4 % (2.0-8.0); NEUTROPHILS % 60.2 % (40.0-76.0); PLATELET 162 x1000/uL (130-400); RED BLOOD CELL COUNT 4.12 mill/uL (4.2-5.4); RED CELL DISTRIBUTION WIDTH 16.9 % (11.6-14.6)
[2018-10-24 07:35] LABS: CHLORIDE 100 mEq/L (98-107)
[2018-10-24 08:00] VITALS: BP 121/54
[2018-10-24] MEDS: APIXABAN 5 MG TABLET PO SCH (09:00)
[2018-10-24] MEDS: LETAIRIS (AMBRISENTAN) 10MG TABLET PO SCH (09:00)
[2018-10-24] MEDS: FUROSEMIDE 40MG/4ML VIAL IVP SCH (09:00)
[2018-10-24] MEDS: POTASSIUM CHLORIDE 20MEQ/PACKET PO SCH (09:00)
[2018-10-24] MEDS: CARVEDILOL 3.125 MG TABLET PO SCH (09:00)
[2018-10-24] MEDS ORDERED: FAMOTIDINE 20MG TABLET PO SCH (09:00)
[2018-10-24 10:00] VITALS: BP 128/65
[2018-10-24 13:57] VITALS: BP 112/47
== END 2018-10-24 14:53 | disposition home health service (06) | DRG 208 ==
LOC: ER 10:44 → EDBEDREQ 12:28 → EDBEDREQSVC 13:28 → MICUSO 13:39 → EDBEDREQ 13:43 → ENRESERV 14:02 → 5EST 10-22 12:06
PROVIDERS: ADMIT Family Medicine Adult Medicine; ATTEND Family Medicine Adult Medicine
PROC: 5A1945Z Respiratory Ventilation, 24-96 Consecutive Hours (ICD-10-PCS; principal; 2018-10-18)
PROC: 0BH17EZ Insertion of Endotracheal Airway into Trachea, Via Natural or Artificial Opening (ICD-10-PCS; 2018-10-18)
PROC: 5A09357 Assistance with Respiratory Ventilation, Less than 24 Consecutive Hours, Continuous Positive Airway Pressure (ICD-10-PCS; 2018-10-18)
DX: J96.22 Acute and chronic respiratory failure with hypercapnia (principal); G92 Toxic encephalopathy; J18.9 Pneumonia, unspecified organism; I50.43 Acute on chronic combined systolic (congestive) and diastolic (congestive) heart failure; E46 Unspecified protein-calorie malnutrition; J44.1 Chronic obstructive pulmonary disease with (acute) exacerbation; N39.0 Urinary tract infection, site not specified; I42.0 Dilated cardiomyopathy; J44.0 Chronic obstructive pulmonary disease with (acute) lower respiratory infection; E87.4 Mixed disorder of acid-base balance; I67.82 Cerebral ischemia; Z99.11 Dependence on respirator [ventilator] status; J96.21 Acute and chronic respiratory failure with hypoxia; K21.9 Gastro-esophageal reflux disease without esophagitis; I44.7 Left bundle-branch block, unspecified; D69.6 Thrombocytopenia, unspecified; E11.65 Type 2 diabetes mellitus with hyperglycemia; E66.09 Other obesity due to excess calories; E78.5 Hyperlipidemia, unspecified; F41.9 Anxiety disorder, unspecified; H54.7 Unspecified visual loss; I11.0 Hypertensive heart disease with heart failure; I25.10 Atherosclerotic heart disease of native coronary artery without angina pectoris; L98.8 Other specified disorders of the skin and subcutaneous tissue; I27.21 Secondary pulmonary arterial hypertension; I48.0 Paroxysmal atrial fibrillation; I87.8 Other specified disorders of veins; M17.0 Bilateral primary osteoarthritis of knee; R13.10 Dysphagia, unspecified; I49.5 Sick sinus syndrome; D64.9 Anemia, unspecified; R26.9 Unspecified abnormalities of gait and mobility; R79.89 Other specified abnormal findings of blood chemistry; S30.91XA Unspecified superficial injury of lower back and pelvis, initial encounter; X58.XXXA Exposure to other specified factors, initial encounter; Y93.89 Activity, other specified; Y92.89 Other specified places as the place of occurrence of the external cause; Y99.8 Other external cause status; Z79.01 Long term (current) use of anticoagulants; Z87.440 Personal history of urinary (tract) infections; Z78.1 Physical restraint status; Z95.810 Presence of automatic (implantable) cardiac defibrillator; Z99.81 Dependence on supplemental oxygen; Z90.49 Acquired absence of other specified parts of digestive tract; Z98.49 Cataract extraction status, unspecified eye; Z68.37 Body mass index [BMI] 37.0-37.9, adult
CPT/HCPCS: 31500; 36415; 36600; 71045; 80048; 80061; 80305; 82040; 82375; 82805; 83036; 83605; 83735; 83880; 84100; 84134; 84145; 84443; 84478; 84484; 92610; 93005; 93306; 93970; 94002; 94003; 94640; 94660; 96365; 96368; 96375; 97162; 97166; 97530; 99291; A6261; C9113; J0330; J0696; J1650; J1815; J1940; J2060; J2270; J2543; J2704; J2930; J3370; J3480; J3490; J7040; J7050; J7060; J7611; J7620; A4315

== ENCOUNTER 2019-03-26 16:43 | Inpatient (IN) | payer MEDICARE, MEDICAID ==
[~2019-03-26] VITALS: Ht 154.9 cm; Wt 89.4 kg
[~2019-03-26 16:43] MED LIST changes: -AMLO5TAB4 MT; +APIX5TAB PO
[2019-03-26] MEDS ORDERED: MAGNESIUM 2 G PREMIX 50 ML IV STA (17:06)
[2019-03-26] MEDS ORDERED: ALBUTEROL (0.083%) 2.5MG/3ML NEB HHN STA (17:06)
[2019-03-26] MEDS ORDERED: METHYLPREDNISOLONE SOD SUCC 125 MG/2 ML VIAL IV STA (17:06)
[2019-03-26] MEDS ORDERED: IPRATROPIUM BROMIDE (0.02%) 0.5MG/2.5ML NEB HHN STA (17:06)
[2019-03-26 17:57] LABS: BASOPHILS % 0.8 % (0.0-2.0); EOSINOPHILS % 3.7 % (0.0-5.0); HEMATOCRIT. 37.2 % (36.0-48.0); HEMOGLOBIN. 11.6 g/dL (12.0-16.0); LYMPHOCYTES % 25.3 % (20.0-50.0); MEAN CORPUSCULAR HEMOGLOBIN 27.8 pg (28.0-32.0); MEAN PLATELET VOLUME 8.8 fl (7.4-10.4); MONOCYTES % 13.7 % (2.0-8.0); NEUTROPHILS % 56.5 % (40.0-76.0); PLATELET 135 x1000/uL (130-400); RED BLOOD CELL COUNT 4.17 mill/uL (4.2-5.4); RED CELL DISTRIBUTION WIDTH 18.1 % (11.6-14.6)
[2019-03-26 17:59] LABS: CHLORIDE 100 mEq/L (98-107)
[2019-03-26] MEDS ORDERED: ONDANSETRON HCL 4MG/2ML INJ IV ONE (18:00)
[2019-03-26] MEDS ORDERED: MORPHINE SULFATE 2 MG/ML CPJ (NOT FOR IM USE) IV ONE (18:00)
[2019-03-26 18:10] LABS: INR 1.1
[2019-03-26 18:46] LABS: CLARITY URINE CLEAR (CLEAR); COLOR URINE YELLOW (YELLOW); KETONES URINE NEGATIVE (NEGATIVE); LEUKOCYTE ESTERASE URINE NEGATIVE (NEGATIVE); NITRITE URINE NEGATIVE (NEGATIVE); OCCULT BLOOD URINE 2+ (NEGATIVE); PROTEIN URINE NEGATIVE (NEGATIVE); SPECIFIC GRAVITY URINE 1.014 (1.005-1.030)
[2019-03-26] MEDS ORDERED: NALOXONE HCL 1 MG/ML 2ML VIAL ONE (20:27)
[2019-03-26] MEDS ORDERED: NALOXONE HCL 1 MG/ML 2ML VIAL IV ONE (20:30)
[2019-03-26 20:54] LABS: BG BASE EXCESS 6.6 mmol/L (-2.0-2.0); BG BILEVEL POS AIRWAY PRESSURE 15/5; BG CARBOXYHEMOGLOBIN 1.4 % (0.5-1.5); BG DEOXYHEMOGLOBIN 10.8 % (0.0-5.0); BG FRACTION INSPIRED OXYGEN 40; BG METHEMOGLOBIN 0.3 % (0.0-1.5); BG OXYHEMOGLOBIN 87.5 % (94.0-97.0); BG PCO2 153.6 mmHg (35.0-45.0); BG PH 7.055 (7.350-7.450); BG PO2 71.4 mmHg (75.0-100.0); BG SAMPLE SITE RIGHT RADIAL; BG TOTAL HEMOGLOBIN 13.2 g/dL (12.0-18.0); BG VENT MODE MASK - BIPAP
[2019-03-26] MEDS ORDERED: SUCCINYLCHOLINE CHLORIDE 200MG/10ML IV ONE ×2 (21:00→21:06)
[2019-03-26] MEDS ORDERED: PROPOFOL 10MG/ML 100ML 100 ML IV ONE (21:00)
[2019-03-26] MEDS ORDERED: ETOMIDATE 2MG/ML 10ML VIAL IV ONE ×2 (21:00→21:06)
[2019-03-26] MEDS ORDERED: LEVOFLOXACIN 500MG PREMIX 100 ML IV ONE (21:45)
[2019-03-26] MEDS ORDERED: MIDAZOLAM HCL 50 MG in DEXTROSE 5% WATER 40 ML IV ONE (22:30)
[2019-03-26] MEDS ORDERED: MIDAZOLAM HCL 2 MG/2 ML VIAL IV ONE (22:30)
[2019-03-26] MEDS ORDERED: MIDAZOLAM HCL 50 MG in DEXTROSE 5% WATER 50ML IV PRN (22:45)
[2019-03-26 23:21] LABS: BG BASE EXCESS 11.8 mmol/L (-2.0-2.0); BG CARBOXYHEMOGLOBIN 1.3 % (0.5-1.5); BG DEOXYHEMOGLOBIN 3.5 % (0.0-5.0); BG FRACTION INSPIRED OXYGEN 50; BG HCO3 ACT 41.1 mmol/L (22.0-26.0); BG METHEMOGLOBIN 0.2 % (0.0-1.5); BG OXYGEN SATURATION 96.4 % (92.0-98.5); BG PH 7.313 (7.350-7.450); BG SAMPLE SITE RIGHT RADIAL; BG TIDAL VOLUME(mL) 450 mL; BG TOTAL HEMOGLOBIN 11.9 g/dL (12.0-18.0); BG VENT MODE VENT - A/C; BG VENT RATE 14 set
[2019-03-27] VITALS (60 sets, daily range): BP systolic 92–127; BP diastolic 37–76
[2019-03-27] MEDS ORDERED: DEXT 5%/0.9% NACL 1,000 ML IV SCH (01:45)
[2019-03-27] MEDS: FENTANYL CITRATE/PF 500 MCG in SODIUM CHLORIDE 0.9% 40 ML IV PRN ×2 (02:01→23:42)
[2019-03-27] MEDS: MIDAZOLAM HCL 50 MG in DEXTROSE 5% WATER 40 ML IV PRN ×2 (02:02→23:41)
[2019-03-27] MEDS ORDERED: IPRATROPIUM/ALBUTEROL 0.5-3(2.5)MG/3ML NEB HHN SCH (04:00)
[2019-03-27] MEDS: IPRATROPIUM/ALBUTEROL 0.5-3(2.5)MG/3ML NEB HHN SCH ×5 (05:13→20:57)
[2019-03-27 06:03] LABS: BASOPHILS % 0.2 % (0.0-2.0); HEMATOCRIT. 34.7 % (36.0-48.0); HEMOGLOBIN. 10.9 g/dL (12.0-16.0); MEAN CORPUSCULAR HEMOGLOBIN 27.7 pg (28.0-32.0); MONOCYTES % 3.4 % (2.0-8.0); NEUTROPHILS % 86.4 % (40.0-76.0); PLATELET 125 x1000/uL (130-400); RED BLOOD CELL COUNT 3.94 mill/uL (4.2-5.4); RED CELL DISTRIBUTION WIDTH 17.7 % (11.6-14.6)
[2019-03-27 06:13] LABS: CHLORIDE 100 mEq/L (98-107)
[2019-03-27 07:58] LABS: BG BASE EXCESS 10.8 mmol/L (-2.0-2.0); BG CARBOXYHEMOGLOBIN 0.7 % (0.5-1.5); BG DEOXYHEMOGLOBIN 7.9 % (0.0-5.0); BG FRACTION INSPIRED OXYGEN 60; BG METHEMOGLOBIN 0.2 % (0.0-1.5); BG OXYHEMOGLOBIN 91.2 % (94.0-97.0); BG PH 7.346 (7.350-7.450); BG PO2 62.4 mmHg (75.0-100.0); BG SAMPLE SITE RIGHT RADIAL; BG TIDAL VOLUME(mL) 450 mL; BG TOTAL HEMOGLOBIN 11.5 g/dL (12.0-18.0); BG VENT MODE VENT - A/C; BG VENT RATE 14 set
[2019-03-27] MEDS: PANTOPRAZOLE SODIUM 40 MG/VIAL IV SCH (08:30)
[2019-03-27] MEDS: APIXABAN 5 MG TABLET PO SCH ×2 (08:31→16:11)
[2019-03-27] MEDS ORDERED: FUROSEMIDE 40MG/4ML VIAL IVP SCH (09:00)
[2019-03-27] MEDS ORDERED: IPRATROPIUM/ALBUTEROL 0.5-3(2.5)MG/3ML NEB HHN PRN (09:30)
[2019-03-27] MEDS ORDERED: METHYLPREDNISOLONE SOD SUCC 40 MG/ML VIAL IV SCH (10:00)
[2019-03-27] MEDS: PIPERACILLIN/TAZOBACTAM 3.375 G in DEXT 5% WATER 100 ML IV SCH ×3 (12:31→23:24)
[2019-03-27] MEDS: METHYLPREDNISOLONE SOD SUCC 125 MG/2 ML VIAL IV SCH ×2 (16:10→22:00)
[2019-03-27] MEDS: FUROSEMIDE 40MG/4ML VIAL IVP SCH (16:11)
[2019-03-27] MEDS ORDERED: LEVOFLOXACIN 500MG PREMIX 100 ML IV SCH (22:00)
[2019-03-27] MEDS ORDERED: LEVOFLOXACIN 250MG PREMIX 50 ML IV SCH (22:00)
[2019-03-28] VITALS (47 sets, daily range): BP systolic 93–121; BP diastolic 34–70
[2019-03-28] MEDS: IPRATROPIUM/ALBUTEROL 0.5-3(2.5)MG/3ML NEB HHN SCH ×6 (00:36→20:35)
[2019-03-28] MEDS: METHYLPREDNISOLONE SOD SUCC 125 MG/2 ML VIAL IV SCH ×4 (04:18→22:18)
[2019-03-28 04:53] LABS: HEMATOCRIT. 33.7 % (36.0-48.0); HEMOGLOBIN. 10.8 g/dL (12.0-16.0); MEAN CORPUSCULAR HEMOGLOBIN 27.7 pg (28.0-32.0); MEAN CORPUSCULAR VOLUME 86.5 fL (81.0-99.0); MEAN PLATELET VOLUME 8.9 fl (7.4-10.4); PLATELET 142 x1000/uL (130-400); RED CELL DISTRIBUTION WIDTH 17.9 % (11.6-14.6)
[2019-03-28 05:03] LABS: CHLORIDE 101 mEq/L (98-107)
[2019-03-28] MEDS: PIPERACILLIN/TAZOBACTAM 3.375 G in DEXT 5% WATER 100 ML IV SCH ×4 (05:44→23:32)
[2019-03-28 08:17] LABS: BG BASE EXCESS 7.8 mmol/L (-2.0-2.0); BG CARBOXYHEMOGLOBIN 0.3 % (0.5-1.5); BG DEOXYHEMOGLOBIN 5.2 % (0.0-5.0); BG FRACTION INSPIRED OXYGEN 60; BG HCO3 ACT 32.9 mmol/L (22.0-26.0); BG METHEMOGLOBIN 0.2 % (0.0-1.5); BG OXYGEN SATURATION 94.8 % (92.0-98.5); BG OXYHEMOGLOBIN 94.3 % (94.0-97.0); BG PCO2 48.4 mmHg (35.0-45.0); BG PO2 75.4 mmHg (75.0-100.0); BG SAMPLE SITE RIGHT RADIAL; BG TIDAL VOLUME(mL) 500 mL; BG TOTAL HEMOGLOBIN 11.6 g/dL (12.0-18.0); BG VENT MODE VENT - A/C; BG VENT RATE 14 set
[2019-03-28] MEDS: FUROSEMIDE 40MG/4ML VIAL IVP SCH ×2 (08:23→15:59)
[2019-03-28] MEDS: APIXABAN 5 MG TABLET PO SCH ×2 (08:23→15:59)
[2019-03-28] MEDS: PANTOPRAZOLE SODIUM 40 MG/VIAL IV SCH (08:23)
[2019-03-28 14:08] LABS: NUCLEATED RED BLOOD CELLS 1 /100 WBC; PLATELET ESTIMATE NORMAL
[2019-03-28] MEDS: FENTANYL CITRATE/PF 500 MCG in SODIUM CHLORIDE 0.9% 40 ML IV PRN (14:57)
[2019-03-28] MEDS: MIDAZOLAM HCL 50 MG in DEXTROSE 5% WATER 40 ML IV PRN (14:58)
[2019-03-29] VITALS (71 sets, daily range): BP systolic 96–133; BP diastolic 36–81
[2019-03-29] MEDS: IPRATROPIUM/ALBUTEROL 0.5-3(2.5)MG/3ML NEB HHN SCH ×6 (00:34→20:11)
[2019-03-29] MEDS: FENTANYL CITRATE/PF 500 MCG in SODIUM CHLORIDE 0.9% 40 ML IV PRN ×2 (01:55→14:49)
[2019-03-29] MEDS: MIDAZOLAM HCL 50 MG in DEXTROSE 5% WATER 40 ML IV PRN (01:56)
[2019-03-29] MEDS: METHYLPREDNISOLONE SOD SUCC 125 MG/2 ML VIAL IV SCH ×4 (03:43→22:05)
[2019-03-29] MEDS: PIPERACILLIN/TAZOBACTAM 3.375 G in DEXT 5% WATER 100 ML IV SCH ×4 (05:34→23:24)
[2019-03-29 06:06] LABS: HEMATOCRIT. 34.7 % (36.0-48.0); HEMOGLOBIN. 11.2 g/dL (12.0-16.0); MEAN CORPUSCULAR HEMOGLOBIN 27.7 pg (28.0-32.0); MEAN PLATELET VOLUME 8.9 fl (7.4-10.4); PLATELET 149 x1000/uL (130-400); RED BLOOD CELL COUNT 4.03 mill/uL (4.2-5.4); RED CELL DISTRIBUTION WIDTH 17.5 % (11.6-14.6)
[2019-03-29] MEDS: FUROSEMIDE 40MG/4ML VIAL IVP SCH ×2 (09:16→16:01)
[2019-03-29] MEDS: PANTOPRAZOLE SODIUM 40 MG/VIAL IV SCH (09:16)
[2019-03-29] MEDS: APIXABAN 5 MG TABLET PO SCH ×2 (09:16→16:01)
[2019-03-29 09:29] LABS: BG BASE EXCESS 6.7 mmol/L (-2.0-2.0); BG CARBOXYHEMOGLOBIN 0.4 % (0.5-1.5); BG DEOXYHEMOGLOBIN 4.8 % (0.0-5.0); BG FRACTION INSPIRED OXYGEN 60; BG HCO3 ACT 32.3 mmol/L (22.0-26.0); BG METHEMOGLOBIN 0.1 % (0.0-1.5); BG OXYGEN SATURATION 95.2 % (92.0-98.5); BG OXYHEMOGLOBIN 94.7 % (94.0-97.0); BG PCO2 50.9 mmHg (35.0-45.0); BG PH 7.421 (7.350-7.450); BG PO2 81.4 mmHg (75.0-100.0); BG SAMPLE SITE RIGHT RADIAL; BG TIDAL VOLUME(mL) 500 mL; BG TOTAL HEMOGLOBIN 11.7 g/dL (12.0-18.0); BG VENT MODE VENT - A/C; BG VENT RATE 14 set
[2019-03-29 10:56] LABS: PLATELET ESTIMATE NORMAL
[2019-03-29] MEDS ORDERED: MIDAZOLAM HCL IV PRN (21:55)
[2019-03-29] MEDS ORDERED: WATER IV PRN (21:55)
[2019-03-29] MEDS ORDERED: DEXTROSE 5% IV PRN (21:55)
[2019-03-29] MEDS ORDERED: FENTANYL CITRATE/PF 1,000 MCG in SODIUM CHLORIDE 0.9% 100 ML IV PRN (21:55)
[2019-03-29] MEDS ORDERED: MIDAZOLAM HCL 100 MG in DEXTROSE 5% WATER 80 ML IV PRN (22:15)
[2019-03-29] MEDS ORDERED: FENTANYL CITRATE/PF 1,000 MCG in SODIUM CHLORIDE 0.9% 80 ML IV PRN (22:15)
[2019-03-30] VITALS (71 sets, daily range): BP systolic 88–148; BP diastolic 37–95
[2019-03-30] MEDS: IPRATROPIUM/ALBUTEROL 0.5-3(2.5)MG/3ML NEB HHN SCH ×6 (00:11→23:54)
[2019-03-30] MEDS: METHYLPREDNISOLONE SOD SUCC 125 MG/2 ML VIAL IV SCH ×4 (04:12→21:29)
[2019-03-30] MEDS: PIPERACILLIN/TAZOBACTAM 3.375 G in DEXT 5% WATER 100 ML IV SCH ×4 (05:47→23:24)
[2019-03-30 06:06] LABS: HEMATOCRIT. 35.6 % (36.0-48.0); HEMOGLOBIN. 11.5 g/dL (12.0-16.0); MEAN CORPUSCULAR HEMOGLOBIN 27.7 pg (28.0-32.0); MEAN CORPUSCULAR VOLUME 86.1 fL (81.0-99.0); PLATELET 151 x1000/uL (130-400); RED BLOOD CELL COUNT 4.14 mill/uL (4.2-5.4); RED CELL DISTRIBUTION WIDTH 18.1 % (11.6-14.6)
[2019-03-30 06:09] LABS: CHLORIDE 102 mEq/L (98-107)
[2019-03-30] MEDS: PANTOPRAZOLE SODIUM 40 MG/VIAL IV SCH (09:09)
[2019-03-30] MEDS: FUROSEMIDE 40MG/4ML VIAL IVP SCH ×2 (09:09→16:02)
[2019-03-30] MEDS: APIXABAN 5 MG TABLET PO SCH ×2 (09:10→16:02)
[2019-03-30 09:29] LABS: BG BASE EXCESS 10.7 mmol/L (-2.0-2.0); BG CARBOXYHEMOGLOBIN 0.3 % (0.5-1.5); BG DEOXYHEMOGLOBIN 9.6 % (0.0-5.0); BG FRACTION INSPIRED OXYGEN 60; BG HCO3 ACT 37.1 mmol/L (22.0-26.0); BG METHEMOGLOBIN 0.3 % (0.0-1.5); BG OXYGEN SATURATION 90.3 % (92.0-98.5); BG OXYHEMOGLOBIN 89.8 % (94.0-97.0); BG PH 7.424 (7.350-7.450); BG PO2 61.3 mmHg (75.0-100.0); BG SAMPLE SITE RIGHT RADIAL; BG TIDAL VOLUME(mL) 500 mL; BG TOTAL HEMOGLOBIN 12.1 g/dL (12.0-18.0); BG VENT MODE VENT - A/C; BG VENT RATE 14 set
[2019-03-30 13:44] LABS: BG BASE EXCESS 7.4 mmol/L (-2.0-2.0); BG CARBOXYHEMOGLOBIN 0.7 % (0.5-1.5); BG DEOXYHEMOGLOBIN 5.2 % (0.0-5.0); BG FRACTION INSPIRED OXYGEN 60; BG HCO3 ACT 30.6 mmol/L (22.0-26.0); BG METHEMOGLOBIN 0.2 % (0.0-1.5); BG OXYGEN SATURATION 94.8 % (92.0-98.5); BG OXYHEMOGLOBIN 93.9 % (94.0-97.0); BG PCO2 38.1 mmHg (35.0-45.0); BG PH 7.523 (7.350-7.450); BG PO2 70.1 mmHg (75.0-100.0); BG SAMPLE SITE RIGHT RADIAL; BG TIDAL VOLUME(mL) 500 mL; BG TOTAL HEMOGLOBIN 12.6 g/dL (12.0-18.0); BG VENT MODE VENT - A/C; BG VENT RATE 20 set
[2019-03-30 14:32] LABS: PLATELET ESTIMATE NORMAL
[2019-03-30 15:34] LABS: BG CARBOXYHEMOGLOBIN 0.1 % (0.5-1.5); BG DEOXYHEMOGLOBIN 7.4 % (0.0-5.0); BG FRACTION INSPIRED OXYGEN 60; BG HCO3 ACT 35.5 mmol/L (22.0-26.0); BG METHEMOGLOBIN 0.2 % (0.0-1.5); BG OXYGEN SATURATION 92.6 % (92.0-98.5); BG OXYHEMOGLOBIN 92.3 % (94.0-97.0); BG PCO2 51.9 mmHg (35.0-45.0); BG PH 7.453 (7.350-7.450); BG PO2 65.4 mmHg (75.0-100.0); BG SAMPLE SITE RIGHT RADIAL; BG TIDAL VOLUME(mL) 500 mL; BG TOTAL HEMOGLOBIN 12.4 g/dL (12.0-18.0); BG VENT MODE VENT - A/C; BG VENT RATE 18 set
[2019-03-30] MEDS: FENTANYL CITRATE/PF 1,000 MCG in SODIUM CHLORIDE 0.9% 80 ML IV PRN (16:02)
[2019-03-31] VITALS (71 sets, daily range): BP systolic 96–142; BP diastolic 24–92
[2019-03-31] MEDS ORDERED: MIDAZOLAM HCL 100 MG in DEXT 5% WATER 80 ML IV PRN (00:30)
[2019-03-31] MEDS: METHYLPREDNISOLONE SOD SUCC 125 MG/2 ML VIAL IV SCH (03:52)
[2019-03-31] MEDS: IPRATROPIUM/ALBUTEROL 0.5-3(2.5)MG/3ML NEB HHN SCH ×5 (04:12→20:29)
[2019-03-31] MEDS: PIPERACILLIN/TAZOBACTAM 3.375 G in DEXT 5% WATER 100 ML IV SCH (05:08)
[2019-03-31 06:09] LABS: BASOPHILS % 0.1 % (0.0-2.0); HEMOGLOBIN. 11.9 g/dL (12.0-16.0); LYMPHOCYTES % 8.6 % (20.0-50.0); MEAN CORPUSCULAR HEMOGLOBIN 27.7 pg (28.0-32.0); MEAN CORPUSCULAR VOLUME 85.7 fL (81.0-99.0); MEAN PLATELET VOLUME 9.3 fl (7.4-10.4); MONOCYTES % 7.9 % (2.0-8.0); NEUTROPHILS % 83.4 % (40.0-76.0); PLATELET 138 x1000/uL (130-400); RED BLOOD CELL COUNT 4.31 mill/uL (4.2-5.4)
[2019-03-31 06:26] LABS: CHLORIDE 101 mEq/L (98-107)
[2019-03-31] MEDS ORDERED: BISACODYL 5MG TABLET PO PRN (08:30)
[2019-03-31 08:40] LABS: BG BASE EXCESS 9.4 mmol/L (-2.0-2.0); BG CARBOXYHEMOGLOBIN 0.5 % (0.5-1.5); BG DEOXYHEMOGLOBIN 4.5 % (0.0-5.0); BG FRACTION INSPIRED OXYGEN 60; BG HCO3 ACT 34.2 mmol/L (22.0-26.0); BG METHEMOGLOBIN 0.3 % (0.0-1.5); BG OXYGEN SATURATION 95.5 % (92.0-98.5); BG OXYHEMOGLOBIN 94.7 % (94.0-97.0); BG PCO2 47.3 mmHg (35.0-45.0); BG PH 7.477 (7.350-7.450); BG PO2 76.1 mmHg (75.0-100.0); BG SAMPLE SITE RIGHT BRACHIAL; BG TIDAL VOLUME(mL) 500 mL; BG TOTAL HEMOGLOBIN 12.8 g/dL (12.0-18.0); BG VENT MODE VENT - A/C; BG VENT RATE 18 set
[2019-03-31] MEDS: DOCUSATE SODIUM SUGAR FREE 100MG/10ML UDC NG SCH ×2 (09:00→09:45)
[2019-03-31] MEDS ORDERED: ACETAZOLAMIDE 250MG TABLET PO NR (09:30)
[2019-03-31] MEDS: METHYLPREDNISOLONE SOD SUCC 40 MG/ML VIAL IV SCH ×3 (09:45→21:54)
[2019-03-31] MEDS: FUROSEMIDE 40MG/4ML VIAL IVP SCH ×2 (09:45→16:20)
[2019-03-31] MEDS: APIXABAN 5 MG TABLET PO SCH ×2 (09:45→16:20)
[2019-03-31] MEDS: PANTOPRAZOLE SODIUM 40 MG/VIAL IV SCH (09:45)
[2019-03-31] MEDS: FENTANYL CITRATE/PF 1,000 MCG in SODIUM CHLORIDE 0.9% 80 ML IV PRN (09:46)
[2019-03-31 11:49] LABS: BG BASE EXCESS 5.3 mmol/L (-2.0-2.0); BG CARBOXYHEMOGLOBIN 0.8 % (0.5-1.5); BG DEOXYHEMOGLOBIN 7.1 % (0.0-5.0); BG FRACTION INSPIRED OXYGEN 50; BG METHEMOGLOBIN 0.3 % (0.0-1.5); BG OXYGEN SATURATION 92.8 % (92.0-98.5); BG OXYHEMOGLOBIN 91.8 % (94.0-97.0); BG PCO2 62.8 mmHg (35.0-45.0); BG PH 7.338 (7.350-7.450); BG PO2 75.1 mmHg (75.0-100.0); BG SAMPLE SITE RIGHT BRACHIAL; BG TIDAL VOLUME(mL) 500 mL; BG TOTAL HEMOGLOBIN 13.5 g/dL (12.0-18.0); BG VENT MODE VENT - A/C; BG VENT RATE 12 set
[2019-03-31] MEDS: CEFAZOLIN 1000MG PREMIX 50 ML IV SCH ×2 (12:09→19:54)
[2019-04-01] VITALS (42 sets, daily range): BP systolic 103–154; BP diastolic 35–76
[2019-04-01] MEDS: IPRATROPIUM/ALBUTEROL 0.5-3(2.5)MG/3ML NEB HHN SCH ×6 (00:39→20:25)
[2019-04-01] MEDS: FENTANYL CITRATE/PF 1,000 MCG in SODIUM CHLORIDE 0.9% 80 ML IV PRN (01:29)
[2019-04-01] MEDS: CEFAZOLIN 1000MG PREMIX 50 ML IV SCH ×3 (03:04→20:26)
[2019-04-01 05:45] LABS: HEMATOCRIT. 37.5 % (36.0-48.0); HEMOGLOBIN. 11.9 g/dL (12.0-16.0); LYMPHOCYTES % 8.3 % (20.0-50.0); MEAN CORPUSCULAR HEMOGLOBIN 27.4 pg (28.0-32.0); MEAN CORPUSCULAR VOLUME 86.1 fL (81.0-99.0); MEAN PLATELET VOLUME 9.2 fl (7.4-10.4); MONOCYTES % 8.4 % (2.0-8.0); NEUTROPHILS % 83.3 % (40.0-76.0); PLATELET 147 x1000/uL (130-400); RED BLOOD CELL COUNT 4.36 mill/uL (4.2-5.4); RED CELL DISTRIBUTION WIDTH 17.8 % (11.6-14.6)
[2019-04-01 05:54] LABS: CHLORIDE 101 mEq/L (98-107)
[2019-04-01] MEDS: METHYLPREDNISOLONE SOD SUCC 40 MG/ML VIAL IV SCH ×3 (06:10→22:49)
[2019-04-01] MEDS: DOCUSATE SODIUM SUGAR FREE 100MG/10ML UDC NG SCH (08:48)
[2019-04-01] MEDS: PANTOPRAZOLE SODIUM 40 MG/VIAL IV SCH (08:48)
[2019-04-01] MEDS: FUROSEMIDE 40MG/4ML VIAL IVP SCH ×2 (08:56→17:36)
[2019-04-01] MEDS: APIXABAN 5 MG TABLET PO SCH ×2 (08:56→17:36)
[2019-04-01] MEDS ORDERED: LORAZEPAM 2MG/ML CPJ IV PRN (09:00)
[2019-04-01] MEDS ORDERED: MORPHINE SULFATE 2 MG/ML CPJ (NOT FOR IM USE) IV PRN (09:00)
[2019-04-01] MEDS ORDERED: LIDOCAINE HCL/PF 1% 2ML VIAL ONE (09:20)
[2019-04-01 11:12] LABS: BG BASE EXCESS 8.1 mmol/L (-2.0-2.0); BG CARBOXYHEMOGLOBIN 0.7 % (0.5-1.5); BG DEOXYHEMOGLOBIN 5.2 % (0.0-5.0); BG FRACTION INSPIRED OXYGEN 50; BG HCO3 ACT 36.9 mmol/L (22.0-26.0); BG METHEMOGLOBIN 0.2 % (0.0-1.5); BG OXYGEN SATURATION 94.8 % (92.0-98.5); BG OXYHEMOGLOBIN 93.9 % (94.0-97.0); BG PH 7.322 (7.350-7.450); BG PO2 78.4 mmHg (75.0-100.0); BG PRESSURE SUPPORT 8; BG SAMPLE SITE RIGHT RADIAL; BG TOTAL HEMOGLOBIN 13.7 g/dL (12.0-18.0); BG VENT MODE VENT - CPAP
[2019-04-02] VITALS (45 sets, daily range): BP systolic 112–171; BP diastolic 37–141
[2019-04-02] MEDS: CEFAZOLIN 1000MG PREMIX 50 ML IV SCH ×3 (03:46→22:40)
[2019-04-02] MEDS: IPRATROPIUM/ALBUTEROL 0.5-3(2.5)MG/3ML NEB HHN SCH ×5 (04:34→20:48)
[2019-04-02] MEDS: METHYLPREDNISOLONE SOD SUCC 40 MG/ML VIAL IV SCH (06:47)
[2019-04-02] MEDS: FUROSEMIDE 40MG/4ML VIAL IVP SCH ×2 (08:39→18:11)
[2019-04-02] MEDS: PANTOPRAZOLE SODIUM 40 MG/VIAL IV SCH (08:39)
[2019-04-02] MEDS: APIXABAN 5 MG TABLET PO SCH ×2 (08:40→18:11)
[2019-04-02 08:53] LABS: BG CARBOXYHEMOGLOBIN 0.6 % (0.5-1.5); BG DEOXYHEMOGLOBIN 7.4 % (0.0-5.0); BG FRACTION INSPIRED OXYGEN 40; BG HCO3 ACT 35.5 mmol/L (22.0-26.0); BG METHEMOGLOBIN 0.4 % (0.0-1.5); BG OXYGEN SATURATION 92.5 % (92.0-98.5); BG OXYHEMOGLOBIN 91.6 % (94.0-97.0); BG PCO2 62.2 mmHg (35.0-45.0); BG PH 7.374 (7.350-7.450); BG PO2 64.9 mmHg (75.0-100.0); BG SAMPLE SITE RIGHT BRACHIAL; BG VENT MODE MASK - AEROSOL
[2019-04-02] MEDS: DOCUSATE SODIUM 250MG CAPSULE PO SCH (10:36)
[2019-04-02] MEDS: LISINOPRIL 5MG TABLET PO SCH ×2 (10:37→22:16)
[2019-04-02] MEDS: PREDNISONE 20MG TABLET PO SCH (18:11)
[2019-04-03] VITALS (12 sets, daily range): BP systolic 99–124; BP diastolic 41–68
[2019-04-03] MEDS: IPRATROPIUM/ALBUTEROL 0.5-3(2.5)MG/3ML NEB HHN SCH ×6 (00:20→20:15)
[2019-04-03] MEDS: CEFAZOLIN 1000MG PREMIX 50 ML IV SCH ×3 (04:03→21:28)
[2019-04-03 07:03] LABS: BASOPHILS % 0.3 % (0.0-2.0); EOSINOPHILS % 0.2 % (0.0-5.0); HEMATOCRIT. 41.3 % (36.0-48.0); HEMOGLOBIN. 13.3 g/dL (12.0-16.0); LYMPHOCYTES % 9.5 % (20.0-50.0); MEAN CORPUSCULAR HEMOGLOBIN 27.3 pg (28.0-32.0); MEAN CORPUSCULAR VOLUME 84.9 fL (81.0-99.0); MEAN PLATELET VOLUME 9.4 fl (7.4-10.4); MONOCYTES % 9.3 % (2.0-8.0); NEUTROPHILS % 80.7 % (40.0-76.0); PLATELET 156 x1000/uL (130-400); RED BLOOD CELL COUNT 4.87 mill/uL (4.2-5.4); RED CELL DISTRIBUTION WIDTH 17.5 % (11.6-14.6)
[2019-04-03 08:29] LABS: CHLORIDE 98 mEq/L (98-107)
[2019-04-03] MEDS: PREDNISONE 20MG TABLET PO SCH ×2 (09:13→17:34)
[2019-04-03] MEDS: FUROSEMIDE 40MG/4ML VIAL IVP SCH ×2 (09:13→17:34)
[2019-04-03] MEDS: APIXABAN 5 MG TABLET PO SCH ×2 (09:13→17:34)
[2019-04-03] MEDS: PANTOPRAZOLE SODIUM 40 MG/VIAL IV SCH (09:13)
[2019-04-03] MEDS: DOCUSATE SODIUM 250MG CAPSULE PO SCH (09:13)
[2019-04-03] MEDS: LISINOPRIL 5MG TABLET PO SCH ×2 (09:17→21:31)
[2019-04-04] VITALS (9 sets, daily range): BP systolic 107–132; BP diastolic 50–64
[2019-04-04] MEDS: IPRATROPIUM/ALBUTEROL 0.5-3(2.5)MG/3ML NEB HHN SCH ×3 (00:07→11:42)
[2019-04-04] MEDS: CEFAZOLIN 1000MG PREMIX 50 ML IV SCH (04:33)
[2019-04-04 06:45] LABS: BASOPHILS % 0.1 % (0.0-2.0); EOSINOPHILS % 0.3 % (0.0-5.0); HEMATOCRIT. 42.8 % (36.0-48.0); HEMOGLOBIN. 13.5 g/dL (12.0-16.0); LYMPHOCYTES % 8.6 % (20.0-50.0); MEAN CORPUSCULAR HEMOGLOBIN 26.8 pg (28.0-32.0); MEAN CORPUSCULAR VOLUME 85.2 fL (81.0-99.0); MEAN PLATELET VOLUME 9.7 fl (7.4-10.4); MONOCYTES % 9.1 % (2.0-8.0); NEUTROPHILS % 81.9 % (40.0-76.0); PLATELET 161 x1000/uL (130-400); RED BLOOD CELL COUNT 5.02 mill/uL (4.2-5.4); RED CELL DISTRIBUTION WIDTH 17.5 % (11.6-14.6)
[2019-04-04 07:06] LABS: CHLORIDE 97 mEq/L (98-107)
[2019-04-04] MEDS: PREDNISONE 20MG TABLET PO SCH (08:28)
[2019-04-04] MEDS: FUROSEMIDE 40MG/4ML VIAL IVP SCH (08:28)
[2019-04-04] MEDS: DOCUSATE SODIUM 250MG CAPSULE PO SCH (08:29)
[2019-04-04] MEDS: APIXABAN 5 MG TABLET PO SCH (08:29)
[2019-04-04] MEDS: LISINOPRIL 5MG TABLET PO SCH (08:43)
== END 2019-04-04 13:35 | DRG 207 ==
LOC: ER 18:49 → EDBEDREQTM 18:57 → EDBEDREQ 20:28 → EDBEDREQSVC 21:01 → EDBEDREQTM 21:01 → EDBEDREQ 21:37 → ENRESERV 23:22 → CVICU 03-27 00:09 → 5EST 04-02 13:51
PROVIDERS: ADMIT Family Medicine Adult Medicine; ATTEND Family Medicine Adult Medicine
PROC: 0BH17EZ Insertion of Endotracheal Airway into Trachea, Via Natural or Artificial Opening (ICD-10-PCS; principal; 2019-03-27)
PROC: 5A1955Z Respiratory Ventilation, Greater than 96 Consecutive Hours (ICD-10-PCS; 2019-03-27)
PROC: 5A09357 Assistance with Respiratory Ventilation, Less than 24 Consecutive Hours, Continuous Positive Airway Pressure (ICD-10-PCS; 2019-03-27)
DX: J96.22 Acute and chronic respiratory failure with hypercapnia (principal); I50.33 Acute on chronic diastolic (congestive) heart failure; G92 Toxic encephalopathy; J44.1 Chronic obstructive pulmonary disease with (acute) exacerbation; E87.2 Acidosis; E46 Unspecified protein-calorie malnutrition; L03.115 Cellulitis of right lower limb; I42.0 Dilated cardiomyopathy; G62.81 Critical illness polyneuropathy; J96.21 Acute and chronic respiratory failure with hypoxia; Z99.81 Dependence on supplemental oxygen; I11.0 Hypertensive heart disease with heart failure; K21.9 Gastro-esophageal reflux disease without esophagitis; F41.8 Other specified anxiety disorders; M19.90 Unspecified osteoarthritis, unspecified site; I48.91 Unspecified atrial fibrillation; I27.20 Pulmonary hypertension, unspecified; I44.7 Left bundle-branch block, unspecified; Z95.810 Presence of automatic (implantable) cardiac defibrillator; D69.6 Thrombocytopenia, unspecified; D64.9 Anemia, unspecified; E78.5 Hyperlipidemia, unspecified; F41.9 Anxiety disorder, unspecified; I25.10 Atherosclerotic heart disease of native coronary artery without angina pectoris; I48.0 Paroxysmal atrial fibrillation; E66.9 Obesity, unspecified; J44.9 Chronic obstructive pulmonary disease, unspecified; Z90.49 Acquired absence of other specified parts of digestive tract; L30.9 Dermatitis, unspecified; E11.9 Type 2 diabetes mellitus without complications; I49.5 Sick sinus syndrome; M17.0 Bilateral primary osteoarthritis of knee; Z68.37 Body mass index [BMI] 37.0-37.9, adult
CPT/HCPCS: 36415; 36600; 71045; 74176; 80048; 81003; 82375; 82805; 83605; 83735; 83880; 84145; 84484; 87070; 92610; 93005; 93306; 94002; 94003; 94640; 94644; 97162; 99291; C1893; C9113; J0330; J0690; J1940; J1956; J2060; J2250; J2270; J2310; J2405; J2543; J2704; J2920; J2930; J3010; J3475; J3490; J7042; J7050; J7060; J7512; J7611; J7620

== ENCOUNTER 2019-04-04 13:35 | Inpatient (IN) | payer MEDICARE, MEDICAID ==
[~2019-04-04] VITALS: Ht 149.9 cm; Wt 86.2 kg
[2019-04-04 13:35] VITALS: BP 99/40
[2019-04-04] MEDS ORDERED: IPRATROPIUM/ALBUTEROL 0.5-3(2.5)MG/3ML NEB HHN PRN (15:30)
[2019-04-04] MEDS ORDERED: BISACODYL 5MG TABLET PO PRN (15:30)
[2019-04-04] MEDS ORDERED: LORAZEPAM 1MG TABLET PO PRN (15:30)
[2019-04-04] MEDS: FUROSEMIDE 40MG/4ML VIAL IVP SCH ×2 (17:15→18:21)
[2019-04-04] MEDS: APIXABAN 5 MG TABLET PO SCH (18:21)
[2019-04-04] MEDS: PREDNISONE 20MG TABLET PO SCH (18:21)
[2019-04-04 20:00] VITALS: BP 102/49
[2019-04-04] MEDS ORDERED: CEFAZOLIN 1000MG PREMIX 50 ML IV SCH (20:00)
[2019-04-04] MEDS: LISINOPRIL 5MG TABLET PO SCH (21:00)
[2019-04-04] MEDS: IPRATROPIUM/ALBUTEROL 0.5-3(2.5)MG/3ML NEB HHN SCH (21:01)
[2019-04-05] MEDS: IPRATROPIUM/ALBUTEROL 0.5-3(2.5)MG/3ML NEB HHN SCH ×6 (00:49→21:00)
[2019-04-05 07:17] LABS: BASOPHILS % 0.1 % (0.0-2.0); EOSINOPHILS % 0.4 % (0.0-5.0); HEMATOCRIT. 43.8 % (36.0-48.0); HEMOGLOBIN. 14.1 g/dL (12.0-16.0); LYMPHOCYTES % 10.7 % (20.0-50.0); MEAN CORPUSCULAR HEMOGLOBIN 27.3 pg (28.0-32.0); MEAN CORPUSCULAR VOLUME 85.1 fL (81.0-99.0); MEAN PLATELET VOLUME 9.7 fl (7.4-10.4); MONOCYTES % 11.3 % (2.0-8.0); NEUTROPHILS % 77.5 % (40.0-76.0); PLATELET 155 x1000/uL (130-400); RED BLOOD CELL COUNT 5.15 mill/uL (4.2-5.4); RED CELL DISTRIBUTION WIDTH 17.6 % (11.6-14.6)
[2019-04-05 07:53] LABS: CHLORIDE 100 mEq/L (98-107)
[2019-04-05 07:58] VITALS: BP 139/63
[2019-04-05] MEDS: CEFAZOLIN 1000MG PREMIX 50 ML IV SCH ×3 (08:17→23:53)
[2019-04-05] MEDS: PREDNISONE 20MG TABLET PO SCH ×2 (08:39→16:30)
[2019-04-05] MEDS: DOCUSATE SODIUM 250MG CAPSULE PO SCH (08:39)
[2019-04-05] MEDS: LISINOPRIL 5MG TABLET PO SCH ×2 (08:39→21:00)
[2019-04-05] MEDS: APIXABAN 5 MG TABLET PO SCH ×2 (08:39→16:30)
[2019-04-05] MEDS: FUROSEMIDE 40MG/4ML VIAL IVP SCH ×2 (08:40→17:13)
[2019-04-05] MEDS ORDERED: VITAMINS A AND D OINT TUBE TOP PRN (18:15)
[2019-04-05 20:00] VITALS: BP 138/47
[2019-04-06] MEDS: CEFAZOLIN 1000MG PREMIX 50 ML IV SCH ×3 (06:03→23:21)
[2019-04-06] MEDS: IPRATROPIUM/ALBUTEROL 0.5-3(2.5)MG/3ML NEB HHN SCH ×5 (07:33→19:50)
[2019-04-06 07:58] VITALS: BP 135/62
[2019-04-06] MEDS: PREDNISONE 20MG TABLET PO SCH ×2 (08:18→16:22)
[2019-04-06] MEDS: DOCUSATE SODIUM 250MG CAPSULE PO SCH (08:18)
[2019-04-06] MEDS: APIXABAN 5 MG TABLET PO SCH ×2 (08:18→16:23)
[2019-04-06] MEDS: FUROSEMIDE 40MG/4ML VIAL IVP SCH ×2 (08:19→16:22)
[2019-04-06] MEDS: LISINOPRIL 5MG TABLET PO SCH ×2 (08:19→21:24)
[2019-04-06 20:00] VITALS: BP 122/63
[2019-04-07] MEDS: IPRATROPIUM/ALBUTEROL 0.5-3(2.5)MG/3ML NEB HHN SCH ×8 (00:19→23:58)
[2019-04-07] MEDS: CEFAZOLIN 1000MG PREMIX 50 ML IV SCH ×2 (06:05→15:43)
[2019-04-07 07:00] VITALS: BP 126/52
[2019-04-07] MEDS: DOCUSATE SODIUM 250MG CAPSULE PO SCH (08:47)
[2019-04-07] MEDS: PREDNISONE 20MG TABLET PO SCH (08:47)
[2019-04-07] MEDS: APIXABAN 5 MG TABLET PO SCH ×2 (08:47→17:12)
[2019-04-07] MEDS: LISINOPRIL 5MG TABLET PO SCH ×2 (08:47→21:00)
[2019-04-07] MEDS: FUROSEMIDE 40MG/4ML VIAL IVP SCH (08:47)
[2019-04-07 15:44] LABS: CLARITY URINE CLEAR (CLEAR); COLOR URINE YELLOW (YELLOW); KETONES URINE NEGATIVE (NEGATIVE); LEUKOCYTE ESTERASE URINE TRACE (NEGATIVE); NITRITE URINE NEGATIVE (NEGATIVE); OCCULT BLOOD URINE NEGATIVE (NEGATIVE); PH URINE 5.5 (4.5-8.0); PROTEIN URINE NEGATIVE (NEGATIVE); SPECIFIC GRAVITY URINE 1.013 (1.005-1.030)
[2019-04-07] MEDS: FUROSEMIDE 40MG TABLET PO SCH (17:12)
[2019-04-07 20:00] VITALS: BP 113/59
[2019-04-08] MEDS: CEFAZOLIN 1000MG PREMIX 50 ML IV SCH (00:28)
[2019-04-08] MEDS: IPRATROPIUM/ALBUTEROL 0.5-3(2.5)MG/3ML NEB HHN SCH ×4 (04:08→20:11)
[2019-04-08 06:51] LABS: BASOPHILS % 0.2 % (0.0-2.0); EOSINOPHILS % 2.1 % (0.0-5.0); HEMATOCRIT. 42.1 % (36.0-48.0); HEMOGLOBIN. 13.5 g/dL (12.0-16.0); LYMPHOCYTES % 27.1 % (20.0-50.0); MEAN CORPUSCULAR HEMOGLOBIN 27.5 pg (28.0-32.0); MEAN CORPUSCULAR VOLUME 85.5 fL (81.0-99.0); MEAN PLATELET VOLUME 9.8 fl (7.4-10.4); MONOCYTES % 11.7 % (2.0-8.0); NEUTROPHILS % 58.9 % (40.0-76.0); PLATELET 121 x1000/uL (130-400); RED BLOOD CELL COUNT 4.93 mill/uL (4.2-5.4); RED CELL DISTRIBUTION WIDTH 17.7 % (11.6-14.6)
[2019-04-08 07:02] LABS: FOLIC ACID (FOLATE) SERUM 12.3 ng/mL (>5.38)
[2019-04-08 07:07] LABS: CHLORIDE 97 mEq/L (98-107)
[2019-04-08 07:21] LABS: PHOSPHORUS 3.6 mg/dL (2.5-4.9)
[2019-04-08 07:25] LABS: TOTAL IRON BINDING CAPACITY 351 ug/dL (250-450)
[2019-04-08 08:15] VITALS: BP 136/57
[2019-04-08] MEDS: LISINOPRIL 5MG TABLET PO SCH ×2 (09:41→21:00)
[2019-04-08] MEDS: DOCUSATE SODIUM 250MG CAPSULE PO SCH (09:41)
[2019-04-08] MEDS: APIXABAN 5 MG TABLET PO SCH ×2 (09:42→16:48)
[2019-04-08] MEDS: PREDNISONE 20MG TABLET PO SCH (09:42)
[2019-04-08] MEDS: FUROSEMIDE 40MG TABLET PO SCH ×2 (09:43→16:48)
[2019-04-08 20:00] VITALS: BP 106/47
[2019-04-08 20:49] LABS: CLARITY URINE CLEAR (CLEAR); COLOR URINE YELLOW (YELLOW); KETONES URINE NEGATIVE (NEGATIVE); LEUKOCYTE ESTERASE URINE TRACE (NEGATIVE); NITRITE URINE NEGATIVE (NEGATIVE); OCCULT BLOOD URINE NEGATIVE (NEGATIVE); PH URINE 5.5 (4.5-8.0); PROTEIN URINE NEGATIVE (NEGATIVE); SPECIFIC GRAVITY URINE 1.012 (1.005-1.030)
[2019-04-09] MEDS: IPRATROPIUM/ALBUTEROL 0.5-3(2.5)MG/3ML NEB HHN SCH ×6 (00:01→20:26)
[2019-04-09 08:00] VITALS: BP 136/55
[2019-04-09] MEDS: PREDNISONE 20MG TABLET PO SCH (08:33)
[2019-04-09] MEDS: DOCUSATE SODIUM 250MG CAPSULE PO SCH (08:33)
[2019-04-09] MEDS: APIXABAN 5 MG TABLET PO SCH ×2 (08:33→16:42)
[2019-04-09] MEDS: FUROSEMIDE 40MG TABLET PO SCH ×2 (08:33→16:42)
[2019-04-09] MEDS: LISINOPRIL 5MG TABLET PO SCH ×2 (08:33→22:01)
[2019-04-09 20:00] VITALS: BP 114/52
[2019-04-10] MEDS: IPRATROPIUM/ALBUTEROL 0.5-3(2.5)MG/3ML NEB HHN SCH ×3 (05:14→07:28)
[2019-04-10 08:05] VITALS: BP 141/64
[2019-04-10] MEDS: FUROSEMIDE 40MG TABLET PO SCH (08:45)
[2019-04-10] MEDS: APIXABAN 5 MG TABLET PO SCH (08:45)
[2019-04-10] MEDS: LISINOPRIL 5MG TABLET PO SCH (08:45)
[2019-04-10] MEDS: DOCUSATE SODIUM 250MG CAPSULE PO SCH (08:45)
[2019-04-10] MEDS: PREDNISONE 20MG TABLET PO SCH (08:45)
[2019-04-10] MEDS ORDERED: LISI-186 PO (11:04)
[2019-04-10 13:11] VITALS: BP 141/64
[2019-04-12 08:07] LABS: 25-HYDROXY VITAMIN D3 11 ng/mL (.)
== END 2019-04-10 15:10 | disposition home health service (06) | DRG 73 ==
PROVIDERS: ADMIT Physical Medicine & Rehabilitation Spinal Cord Injury Medicine; ATTEND Family Medicine Adult Medicine
DX: G62.81 Critical illness polyneuropathy (principal); G92 Toxic encephalopathy; J96.21 Acute and chronic respiratory failure with hypoxia; I50.33 Acute on chronic diastolic (congestive) heart failure; J96.22 Acute and chronic respiratory failure with hypercapnia; J84.9 Interstitial pulmonary disease, unspecified; J44.1 Chronic obstructive pulmonary disease with (acute) exacerbation; E46 Unspecified protein-calorie malnutrition; E87.4 Mixed disorder of acid-base balance; L03.90 Cellulitis, unspecified; I42.9 Cardiomyopathy, unspecified; J98.11 Atelectasis; R53.81 Other malaise; I11.0 Hypertensive heart disease with heart failure; I48.0 Paroxysmal atrial fibrillation; R26.9 Unspecified abnormalities of gait and mobility; D64.9 Anemia, unspecified; K21.9 Gastro-esophageal reflux disease without esophagitis; R13.10 Dysphagia, unspecified; L30.9 Dermatitis, unspecified; E11.9 Type 2 diabetes mellitus without complications; E78.5 Hyperlipidemia, unspecified; F41.9 Anxiety disorder, unspecified; I27.20 Pulmonary hypertension, unspecified; I25.10 Atherosclerotic heart disease of native coronary artery without angina pectoris; M19.90 Unspecified osteoarthritis, unspecified site; Z96.653 Presence of artificial knee joint, bilateral; E66.09 Other obesity due to excess calories; Z68.38 Body mass index [BMI] 38.0-38.9, adult; I44.7 Left bundle-branch block, unspecified; Z95.810 Presence of automatic (implantable) cardiac defibrillator; Z79.01 Long term (current) use of anticoagulants; Z87.440 Personal history of urinary (tract) infections; Z99.81 Dependence on supplemental oxygen
CPT/HCPCS: 36415; 80048; 81003; 82306; 82607; 82728; 82746; 83540; 83550; 83735; 84100; 84134; 84443; 87077; 87186; 92523; 92610; 93970; 94640; 97110; 97116; 97162; 97167; 97530; 97535; C1893; G0515; J0690; J1940; J7040; J7512; J7620

== ENCOUNTER 2019-11-26 08:19 | Inpatient (IN) | payer MEDICARE, MEDICAID ==
[~2019-11-26] VITALS: Ht 149.9 cm; Wt 88.5 kg
[~2019-11-26 08:19] MED LIST changes: -COR3 PO; +LISI-186 PO
[2019-11-26 09:28] LABS: HEMATOCRIT. 36.2 % (36.0-48.0); HEMOGLOBIN. 11.8 g/dL (12.0-16.0); MEAN CORPUSCULAR HEMOGLOBIN 29.7 pg (28.0-32.0); MEAN CORPUSCULAR VOLUME 90.7 fL (81.0-99.0); MEAN PLATELET VOLUME 9.3 fl (7.4-10.4); PLATELET 145 x1000/uL (130-400); RED BLOOD CELL COUNT 3.99 mill/uL (4.2-5.4); RED CELL DISTRIBUTION WIDTH 17.4 % (11.6-14.6)
[2019-11-26 09:35] LABS: CHLORIDE 98 mEq/L (98-107)
[2019-11-26 09:43] LABS: C REACTIVE PROTEIN QUANT 1.9 mg/L (0.0-3.0)
[2019-11-26 09:45] LABS: CREATINE KINASE 73 IU/L (26-192)
[2019-11-26 09:50] LABS: D-DIMER 0.64 mg/L FEU (<0.50); PROTHROMBIN TIME 11.1 sec (9.6-11.0)
[2019-11-26] MEDS ORDERED: LEVOFLOXACIN 750MG PREMIX 150 ML IV ONE (10:00)
[2019-11-26] MEDS ORDERED: FUROSEMIDE 40MG/4ML VIAL IVP ONE (10:00)
[2019-11-26] MEDS ORDERED: ENALAPRIL 2.5MG/2ML VIAL 2ML IV ONE (10:00)
[2019-11-26 10:03] LABS: NUCLEATED RED BLOOD CELLS 1 /100 WBC
[2019-11-26 10:04] LABS: PLATELET ESTIMATE NORMAL
[2019-11-26 10:16] LABS: BG BASE EXCESS 8.1 mmol/L (-2.0-2.0); BG CARBOXYHEMOGLOBIN 1.1 % (0.5-1.5); BG DEOXYHEMOGLOBIN 0.6 % (0.0-5.0); BG FRACTION INSPIRED OXYGEN 15; BG HCO3 ACT 40.6 mmol/L (22.0-26.0); BG METHEMOGLOBIN 0.3 % (0.0-1.5); BG OXYGEN SATURATION 99.4 % (92.0-98.5); BG PCO2 115.8 mmHg (35.0-45.0); BG PH 7.163 (7.350-7.450); BG PO2 236.9 mmHg (75.0-100.0); BG SAMPLE SITE RIGHT RADIAL; BG TOTAL HEMOGLOBIN 12.3 g/dL (12.0-18.0); BG VENT MODE MASK - NRB
[2019-11-26 11:16] LABS: COLOR URINE YELLOW (YELLOW); KETONES URINE NEGATIVE (NEGATIVE); LEUKOCYTE ESTERASE URINE 2+ (NEGATIVE); NITRITE URINE NEGATIVE (NEGATIVE); OCCULT BLOOD URINE NEGATIVE (NEGATIVE); PROTEIN URINE TRACE (NEGATIVE); SPECIFIC GRAVITY URINE 1.017 (1.005-1.030)
[2019-11-26 11:22] LABS: CLARITY URINE HAZY (CLEAR)
[2019-11-26] MEDS ORDERED: CLONIDINE 0.1MG TABLET PO PRN (14:45)
[2019-11-26] MEDS ORDERED: MORPHINE SULFATE 2 MG/ML CPJ (NOT FOR IM USE) IV PRN (14:45)
[2019-11-26] MEDS ORDERED: ACETAMINOPHEN 325MG TABLET PO PRN (14:45)
[2019-11-26] MEDS ORDERED: GUAIFENESIN 200MG/10ML SUGAR FREE UDC PO PRN (14:45)
[2019-11-26] MEDS ORDERED: DOCUSATE SODIUM 100MG CAPSULE PO PRN (14:45)
[2019-11-26] MEDS ORDERED: ONDANSETRON HCL 4MG/2ML INJ IV PRN (14:45)
[2019-11-26 14:48] LABS: BG BASE EXCESS 8.1 mmol/L (-2.0-2.0); BG DEOXYHEMOGLOBIN 6.8 % (0.0-5.0); BG FRACTION INSPIRED OXYGEN 55; BG HCO3 ACT 38.7 mmol/L (22.0-26.0); BG METHEMOGLOBIN 0.3 % (0.0-1.5); BG OXYGEN SATURATION 93.1 % (92.0-98.5); BG OXYHEMOGLOBIN 91.9 % (94.0-97.0); BG PCO2 95.6 mmHg (35.0-45.0); BG PH 7.225 (7.350-7.450); BG PO2 71.9 mmHg (75.0-100.0); BG SAMPLE SITE RIGHT BRACHIAL; BG TOTAL HEMOGLOBIN 11.6 g/dL (12.0-18.0); BG VENT MODE HI- FLO
[2019-11-26] MEDS ORDERED: AZITHROMYCIN 500 MG in DEXT 5% WATER 250 ML IV SCH (15:00)
[2019-11-26] MEDS: METHYLPREDNISOLONE SOD SUCC 125 MG/2 ML VIAL IV SCH (15:00)
[2019-11-26] MEDS: ENOXAPARIN 40MG/0.4ML SYR SUBCUT SCH (15:00)
[2019-11-26] MEDS: CEFTRIAXONE 1 G PREMIX 50 ML IV SCH (16:07)
[2019-11-26] MEDS ORDERED: ALBUTEROL 6.7GM HFA INHALER ORI SCH (18:00)
[2019-11-26 22:21] VITALS: BP 123/48
[2019-11-27] VITALS (12 sets, daily range): BP systolic 112–137; BP diastolic 50–67
[2019-11-27] MEDS: METHYLPREDNISOLONE SOD SUCC 125 MG/2 ML VIAL IV SCH ×3 (02:53→21:19)
[2019-11-27 06:40] LABS: BASOPHILS % 0.2 % (0.0-2.0); HEMATOCRIT. 34.6 % (36.0-48.0); LYMPHOCYTES % 8.8 % (20.0-50.0); MEAN CORPUSCULAR HEMOGLOBIN 29.3 pg (28.0-32.0); MEAN PLATELET VOLUME 9.3 fl (7.4-10.4); MONOCYTES % 2.4 % (2.0-8.0); NEUTROPHILS % 88.6 % (40.0-76.0); PLATELET 115 x1000/uL (130-400); RED BLOOD CELL COUNT 3.76 mill/uL (4.2-5.4)
[2019-11-27 08:14] LABS: BG BILEVEL POS AIRWAY PRESSURE ST=15/5; BG CARBOXYHEMOGLOBIN 0.6 % (0.5-1.5); BG DEOXYHEMOGLOBIN 2.9 % (0.0-5.0); BG FRACTION INSPIRED OXYGEN 60; BG HCO3 ACT 41.7 mmol/L (22.0-26.0); BG METHEMOGLOBIN 0.3 % (0.0-1.5); BG OXYGEN SATURATION 97.1 % (92.0-98.5); BG OXYHEMOGLOBIN 96.2 % (94.0-97.0); BG PCO2 105.8 mmHg (35.0-45.0); BG PH 7.213 (7.350-7.450); BG PO2 96.4 mmHg (75.0-100.0); BG SAMPLE SITE RIGHT BRACHIAL; BG TOTAL HEMOGLOBIN 12.5 g/dL (12.0-18.0); BG VENT MODE MASK - BIPAP
[2019-11-27] MEDS ORDERED: COR3 MT (09:45)
[2019-11-27] MEDS ORDERED: AMLO5TAB88 MT (09:45)
[2019-11-27] MEDS: IPRATROPIUM/ALBUTEROL 0.5-3(2.5)MG/3ML NEB HHN SCH ×3 (11:21→20:59)
[2019-11-27 11:25] LABS: BG BASE EXCESS 10.8 mmol/L (-2.0-2.0); BG BILEVEL POS AIRWAY PRESSURE 18/5; BG CARBOXYHEMOGLOBIN 0.6 % (0.5-1.5); BG DEOXYHEMOGLOBIN 3.9 % (0.0-5.0); BG FRACTION INSPIRED OXYGEN 55; BG METHEMOGLOBIN 0.3 % (0.0-1.5); BG OXYGEN SATURATION 96.1 % (92.0-98.5); BG OXYHEMOGLOBIN 95.2 % (94.0-97.0); BG PH 7.237 (7.350-7.450); BG PO2 84.5 mmHg (75.0-100.0); BG SAMPLE SITE RIGHT RADIAL; BG TOTAL HEMOGLOBIN 12.4 g/dL (12.0-18.0); BG VENT MODE MASK - BIPAP
[2019-11-27] MEDS ORDERED: FUROSEMIDE 40MG/4ML VIAL IVP SCH (11:30)
[2019-11-27 12:44] LABS: BG BASE EXCESS 2.5 mmol/L (-2.0-2.0); BG BILEVEL POS AIRWAY PRESSURE 20/5; BG DEOXYHEMOGLOBIN 5.5 % (0.0-5.0); BG METHEMOGLOBIN 0.2 % (0.0-1.5); BG OXYGEN SATURATION 94.4 % (92.0-98.5); BG OXYHEMOGLOBIN 93.3 % (94.0-97.0); BG PCO2 69.3 mmHg (35.0-45.0); BG PH 7.268 (7.350-7.450); BG PO2 73.6 mmHg (75.0-100.0); BG SAMPLE SITE RIGHT RADIAL; BG TOTAL HEMOGLOBIN 11.5 g/dL (12.0-18.0); BG VENT MODE MASK - BIPAP; BG VENT RATE 20 set
[2019-11-27] MEDS ORDERED: LIDOCAINE HCL/PF 1% 2ML VIAL ONE (13:54)
[2019-11-27] MEDS: ENOXAPARIN 40MG/0.4ML SYR SUBCUT SCH (15:10)
[2019-11-27] MEDS: AZITHROMYCIN 500 MG in DEXT 5% WATER 250 ML IV SCH (15:10)
[2019-11-27] MEDS: CEFTRIAXONE 1 G PREMIX 50 ML IV SCH (15:59)
[2019-11-27] MEDS: FUROSEMIDE 40MG/4ML VIAL IVP SCH (16:02)
[2019-11-27] MEDS: LORAZEPAM 2MG/ML CPJ IV PRN (21:26)
[2019-11-28] VITALS (12 sets, daily range): BP systolic 94–141; BP diastolic 46–66
[2019-11-28] MEDS: LORAZEPAM 2MG/ML CPJ IV PRN (01:39)
[2019-11-28] MEDS: IPRATROPIUM/ALBUTEROL 0.5-3(2.5)MG/3ML NEB HHN SCH ×5 (04:30→21:02)
[2019-11-28] MEDS: METHYLPREDNISOLONE SOD SUCC 125 MG/2 ML VIAL IV SCH ×3 (05:26→21:54)
[2019-11-28 06:08] LABS: BASOPHILS % 0.1 % (0.0-2.0); HEMATOCRIT. 34.9 % (36.0-48.0); HEMOGLOBIN. 11.3 g/dL (12.0-16.0); LYMPHOCYTES % 8.6 % (20.0-50.0); MEAN CORPUSCULAR HEMOGLOBIN 29.2 pg (28.0-32.0); MEAN CORPUSCULAR VOLUME 90.6 fL (81.0-99.0); MEAN PLATELET VOLUME 9.3 fl (7.4-10.4); MONOCYTES % 4.3 % (2.0-8.0); PLATELET 139 x1000/uL (130-400); RED BLOOD CELL COUNT 3.85 mill/uL (4.2-5.4); RED CELL DISTRIBUTION WIDTH 16.9 % (11.6-14.6)
[2019-11-28] MEDS: FUROSEMIDE 40MG/4ML VIAL IVP SCH ×2 (08:19→16:52)
[2019-11-28 09:11] LABS: BG BASE EXCESS 16.5 mmol/L (-2.0-2.0); BG BILEVEL POS AIRWAY PRESSURE 18/5; BG CARBOXYHEMOGLOBIN 0.4 % (0.5-1.5); BG DEOXYHEMOGLOBIN 5.7 % (0.0-5.0); BG FRACTION INSPIRED OXYGEN 50; BG HCO3 ACT 44.7 mmol/L (22.0-26.0); BG METHEMOGLOBIN 0.1 % (0.0-1.5); BG OXYGEN SATURATION 94.3 % (92.0-98.5); BG OXYHEMOGLOBIN 93.8 % (94.0-97.0); BG PCO2 75.1 mmHg (35.0-45.0); BG PH 7.393 (7.350-7.450); BG PO2 72.6 mmHg (75.0-100.0); BG SAMPLE SITE RIGHT RADIAL; BG TOTAL HEMOGLOBIN 11.8 g/dL (12.0-18.0); BG VENT MODE MASK - BIPAP; BG VENT RATE 20 set
[2019-11-28] MEDS: AZITHROMYCIN 500 MG in DEXT 5% WATER 250 ML IV SCH (14:59)
[2019-11-28] MEDS: ENOXAPARIN 40MG/0.4ML SYR SUBCUT SCH (14:59)
[2019-11-28] MEDS: CEFTRIAXONE 1 G PREMIX 50 ML IV SCH (16:52)
[2019-11-29] VITALS (12 sets, daily range): BP systolic 124–159; BP diastolic 55–86
[2019-11-29] MEDS: IPRATROPIUM/ALBUTEROL 0.5-3(2.5)MG/3ML NEB HHN SCH ×6 (00:50→21:11)
[2019-11-29 05:56] LABS: BASOPHILS % 0.3 % (0.0-2.0); EOSINOPHILS % 0.3 % (0.0-5.0); HEMATOCRIT. 35.1 % (36.0-48.0); HEMOGLOBIN. 11.4 g/dL (12.0-16.0); LYMPHOCYTES % 8.2 % (20.0-50.0); MEAN CORPUSCULAR HEMOGLOBIN 28.9 pg (28.0-32.0); MEAN PLATELET VOLUME 9.4 fl (7.4-10.4); MONOCYTES % 6.4 % (2.0-8.0); NEUTROPHILS % 84.8 % (40.0-76.0); PLATELET 141 x1000/uL (130-400); RED BLOOD CELL COUNT 3.95 mill/uL (4.2-5.4); RED CELL DISTRIBUTION WIDTH 17.1 % (11.6-14.6)
[2019-11-29 06:05] LABS: CHLORIDE 95 mEq/L (98-107)
[2019-11-29] MEDS: METHYLPREDNISOLONE SOD SUCC 125 MG/2 ML VIAL IV SCH ×3 (06:27→21:41)
[2019-11-29] MEDS: FUROSEMIDE 40MG/4ML VIAL IVP SCH ×2 (08:37→16:03)
[2019-11-29 10:37] LABS: BG BASE EXCESS 13.2 mmol/L (-2.0-2.0); BG CARBOXYHEMOGLOBIN 0.6 % (0.5-1.5); BG DEOXYHEMOGLOBIN 8.8 % (0.0-5.0); BG FRACTION INSPIRED OXYGEN 36; BG HCO3 ACT 40.2 mmol/L (22.0-26.0); BG METHEMOGLOBIN 0.3 % (0.0-1.5); BG OXYGEN SATURATION 91.1 % (92.0-98.5); BG OXYHEMOGLOBIN 90.3 % (94.0-97.0); BG PCO2 62.6 mmHg (35.0-45.0); BG PH 7.426 (7.350-7.450); BG PO2 61.9 mmHg (75.0-100.0); BG SAMPLE SITE RIGHT RADIAL; BG VENT MODE NASAL CANNULA
[2019-11-29] MEDS: AZITHROMYCIN 500 MG in DEXT 5% WATER 250 ML IV SCH (14:58)
[2019-11-29] MEDS: ENOXAPARIN 40MG/0.4ML SYR SUBCUT SCH (14:59)
[2019-11-29] MEDS: CEFTRIAXONE 1 G PREMIX 50 ML IV SCH (16:03)
[2019-11-30] VITALS (11 sets, daily range): BP systolic 111–164; BP diastolic 55–84
[2019-11-30] MEDS: IPRATROPIUM/ALBUTEROL 0.5-3(2.5)MG/3ML NEB HHN SCH ×6 (01:13→21:49)
[2019-11-30] MEDS: METHYLPREDNISOLONE SOD SUCC 125 MG/2 ML VIAL IV SCH ×3 (06:57→21:33)
[2019-11-30] MEDS: FUROSEMIDE 40MG/4ML VIAL IVP SCH ×2 (08:33→16:55)
[2019-11-30] MEDS ORDERED: AZITHROMYCIN 500 MG TABLET PO SCH (09:00)
[2019-11-30 10:00] LABS: MEAN CORPUSCULAR HEMOGLOBIN 29.1 pg (28.0-32.0); MEAN CORPUSCULAR VOLUME 89.4 fL (81.0-99.0); PLATELET 145 x1000/uL (130-400); RED BLOOD CELL COUNT 4.47 mill/uL (4.2-5.4); RED CELL DISTRIBUTION WIDTH 16.7 % (11.6-14.6)
[2019-11-30 10:06] LABS: CHLORIDE 94 mEq/L (98-107)
[2019-11-30] MEDS: LORAZEPAM 2MG/ML CPJ IV PRN ×2 (11:32→21:40)
[2019-11-30 12:20] LABS: BG BASE EXCESS 15.3 mmol/L (-2.0-2.0); BG CARBOXYHEMOGLOBIN 0.6 % (0.5-1.5); BG DEOXYHEMOGLOBIN 9.3 % (0.0-5.0); BG HCO3 ACT 42.3 mmol/L (22.0-26.0); BG METHEMOGLOBIN 0.3 % (0.0-1.5); BG OXYGEN SATURATION 90.6 % (92.0-98.5); BG OXYHEMOGLOBIN 89.8 % (94.0-97.0); BG PCO2 62.8 mmHg (35.0-45.0); BG PH 7.446 (7.350-7.450); BG SAMPLE SITE RIGHT RADIAL; BG TOTAL HEMOGLOBIN 13.1 g/dL (12.0-18.0); BG VENT MODE NASAL CANNULA
[2019-11-30] MEDS: ENOXAPARIN 40MG/0.4ML SYR SUBCUT SCH (14:31)
[2019-11-30] MEDS ORDERED: HALOPERIDOL LACTATE 5MG/ML VIAL IM PRN (14:45)
[2019-11-30] MEDS: CEFTRIAXONE 1 G PREMIX 50 ML IV SCH (16:55)
[2019-12-01] VITALS (12 sets, daily range): BP systolic 106–148; BP diastolic 29–88
[2019-12-01] MEDS: IPRATROPIUM/ALBUTEROL 0.5-3(2.5)MG/3ML NEB HHN SCH ×6 (01:01→21:46)
[2019-12-01] MEDS: METHYLPREDNISOLONE SOD SUCC 125 MG/2 ML VIAL IV SCH (06:12)
[2019-12-01 07:36] LABS: D-DIMER 3.04 mg/L FEU (<0.50)
[2019-12-01 07:37] LABS: BASOPHILS % 0.2 % (0.0-2.0); HEMATOCRIT. 40.7 % (36.0-48.0); HEMOGLOBIN. 13.1 g/dL (12.0-16.0); LYMPHOCYTES % 10.6 % (20.0-50.0); MEAN CORPUSCULAR VOLUME 89.7 fL (81.0-99.0); MEAN PLATELET VOLUME 9.4 fl (7.4-10.4); MONOCYTES % 7.8 % (2.0-8.0); NEUTROPHILS % 81.4 % (40.0-76.0); PLATELET 150 x1000/uL (130-400); RED BLOOD CELL COUNT 4.54 mill/uL (4.2-5.4); RED CELL DISTRIBUTION WIDTH 16.8 % (11.6-14.6)
[2019-12-01] MEDS: FUROSEMIDE 40MG/4ML VIAL IVP SCH ×2 (08:39→16:28)
[2019-12-01 08:57] LABS: CHLORIDE 94 mEq/L (98-107)
[2019-12-01 09:03] LABS: C REACTIVE PROTEIN QUANT 1.2 mg/L (0.0-3.0)
[2019-12-01] MEDS: METHYLPREDNISOLONE SOD SUCC 40 MG/ML VIAL IV SCH ×2 (14:18→21:15)
[2019-12-01] MEDS: ENOXAPARIN 40MG/0.4ML SYR SUBCUT SCH (16:28)
[2019-12-02] VITALS (11 sets, daily range): BP systolic 107–141; BP diastolic 40–107
[2019-12-02] MEDS: IPRATROPIUM/ALBUTEROL 0.5-3(2.5)MG/3ML NEB HHN SCH ×4 (00:47→14:00)
[2019-12-02 06:12] LABS: BASOPHILS % 0.3 % (0.0-2.0); HEMATOCRIT. 38.3 % (36.0-48.0); HEMOGLOBIN. 12.4 g/dL (12.0-16.0); LYMPHOCYTES % 7.3 % (20.0-50.0); MEAN CORPUSCULAR HEMOGLOBIN 28.8 pg (28.0-32.0); MEAN PLATELET VOLUME 9.5 fl (7.4-10.4); MONOCYTES % 7.4 % (2.0-8.0); PLATELET 118 x1000/uL (130-400); RED BLOOD CELL COUNT 4.31 mill/uL (4.2-5.4); RED CELL DISTRIBUTION WIDTH 16.6 % (11.6-14.6)
[2019-12-02] MEDS: METHYLPREDNISOLONE SOD SUCC 40 MG/ML VIAL IV SCH (06:46)
[2019-12-02 06:48] LABS: CHLORIDE 93 mEq/L (98-107)
[2019-12-02] MEDS: FUROSEMIDE 40MG/4ML VIAL IVP SCH (09:39)
[2019-12-02] MEDS ORDERED: APIX5TAB MT (10:44)
[2019-12-02] MEDS ORDERED: IPRA3AMP9 NEB (10:44)
[2019-12-02] MEDS ORDERED: MED4 MT (10:44)
[2019-12-02] MEDS ORDERED: FLUT1DIS3 INH (10:44)
[2019-12-02] MEDS ORDERED: ALBU18HF2 IH (10:44)
[2019-12-02] MEDS ORDERED: FURO-151 MT (10:44)
[2019-12-02] MEDS ORDERED: METHYLPREDNISOLONE SOD SUCC 40 MG/ML VIAL IV SCH (18:00)
== END 2019-12-02 15:07 | disposition home health service (06) | DRG 291 ==
LOC: ER 08:25 → MICUSO 09:53 → EDBEDREQTM 10:06 → EDBEDREQ 10:09 → 3WST 22:29
PROVIDERS: ADMIT Family Medicine Adult Medicine; ATTEND Family Medicine Adult Medicine
PROC: 5A09457 Assistance with Respiratory Ventilation, 24-96 Consecutive Hours, Continuous Positive Airway Pressure (ICD-10-PCS; principal; 2019-11-26)
PROC: 5A09357 Assistance with Respiratory Ventilation, Less than 24 Consecutive Hours, Continuous Positive Airway Pressure (ICD-10-PCS; 2019-11-30)
PROC: 5A09357 Assistance with Respiratory Ventilation, Less than 24 Consecutive Hours, Continuous Positive Airway Pressure (ICD-10-PCS; 2019-12-01)
DX: I11.0 Hypertensive heart disease with heart failure (principal); J18.9 Pneumonia, unspecified organism; J96.22 Acute and chronic respiratory failure with hypercapnia; G93.41 Metabolic encephalopathy; J44.1 Chronic obstructive pulmonary disease with (acute) exacerbation; E87.2 Acidosis; E46 Unspecified protein-calorie malnutrition; N39.0 Urinary tract infection, site not specified; D68.59 Other primary thrombophilia; L03.116 Cellulitis of left lower limb; L03.115 Cellulitis of right lower limb; J44.0 Chronic obstructive pulmonary disease with (acute) lower respiratory infection; I50.43 Acute on chronic combined systolic (congestive) and diastolic (congestive) heart failure; I42.9 Cardiomyopathy, unspecified; I27.20 Pulmonary hypertension, unspecified; F41.9 Anxiety disorder, unspecified; L30.9 Dermatitis, unspecified; I48.0 Paroxysmal atrial fibrillation; I25.10 Atherosclerotic heart disease of native coronary artery without angina pectoris; K21.9 Gastro-esophageal reflux disease without esophagitis; I44.7 Left bundle-branch block, unspecified; I27.21 Secondary pulmonary arterial hypertension; D69.6 Thrombocytopenia, unspecified; I34.0 Nonrheumatic mitral (valve) insufficiency; E66.01 Morbid (severe) obesity due to excess calories; R13.10 Dysphagia, unspecified; M17.0 Bilateral primary osteoarthritis of knee; Z96.653 Presence of artificial knee joint, bilateral; Z20.828 Contact with and (suspected) exposure to other viral communicable diseases; E78.5 Hyperlipidemia, unspecified; I49.5 Sick sinus syndrome; D64.9 Anemia, unspecified; R53.81 Other malaise; Z68.39 Body mass index [BMI] 39.0-39.9, adult; Z99.81 Dependence on supplemental oxygen; Z95.810 Presence of automatic (implantable) cardiac defibrillator; Z79.01 Long term (current) use of anticoagulants; Z79.84 Long term (current) use of oral hypoglycemic drugs; Z79.899 Other long term (current) drug therapy; Z87.440 Personal history of urinary (tract) infections; Z90.49 Acquired absence of other specified parts of digestive tract
CPT/HCPCS: 36415; 36600; 71045; 80048; 80053; 81003; 82140; 82375; 82550; 82728; 82805; 82962; 83605; 83615; 83735; 83880; 84145; 84484; 85025; 85027; 85379; 85384; 86140; 87804; 92523; 92610; 93005; 93306; 94640; 97162; 97166; 97530; 99291; J0456; J0696; J1630; J1650; J1940; J1956; J2060; J2920; J2930; J3490; J7060; U0003-CS

== ENCOUNTER 2020-02-29 23:44 | Inpatient (IN) | payer MEDICARE, MEDICAID ==
[~2020-02-29] VITALS: Ht 154.9 cm; Wt 91.2 kg
[~2020-02-29 23:44] MED LIST changes: +ALBU18HF2 IH; +AMLO5TAB88 MT; +APIX5TAB MT; +FLUT1DIS3 INH; +FURO-151 MT; -FURO-151 PO; +IPRA3AMP9 NEB; -LISI-186 PO; +MED4 MT
[2020-03-01] MEDS ORDERED: ASPIRIN 81MG TABLET PO ONE (00:15)
[2020-03-01 00:28] LABS: BASOPHILS % 0.8 % (0.0-2.0); CHLORIDE 98 mEq/L (98-107); EOSINOPHILS % 3.2 % (0.0-5.0); HEMATOCRIT. 37.9 % (36.0-48.0); HEMOGLOBIN. 11.9 g/dL (12.0-16.0); LYMPHOCYTES % 23.4 % (20.0-50.0); MEAN CORPUSCULAR HEMOGLOBIN 27.6 pg (28.0-32.0); MEAN CORPUSCULAR VOLUME 87.6 fL (81.0-99.0); MEAN PLATELET VOLUME 8.7 fl (7.4-10.4); MONOCYTES % 14.8 % (2.0-8.0); NEUTROPHILS % 57.8 % (40.0-76.0); PLATELET 142 x1000/uL (130-400); RED BLOOD CELL COUNT 4.32 mill/uL (4.2-5.4); RED CELL DISTRIBUTION WIDTH 17.5 % (11.6-14.6)
[2020-03-01 00:34] LABS: PARTIAL THROMBOPLASTIN TIME 29.6 sec (23.4-31.0)
[2020-03-01] MEDS ORDERED: FUROSEMIDE 40MG/4ML VIAL IVP ONE (01:30)
[2020-03-01 04:46] VITALS: BP 145/51
[2020-03-01] MEDS ORDERED: DIPHENHYDRAMINE 50MG/ML VIAL IV PRN (09:00)
[2020-03-01] MEDS ORDERED: CLONIDINE 0.1MG TABLET PO PRN (09:00)
[2020-03-01] MEDS ORDERED: ALBUTEROL 6.7GM HFA INHALER ORI PRN (09:00)
[2020-03-01] MEDS ORDERED: ACETAMINOPHEN 325MG TABLET PO PRN (09:00)
[2020-03-01] MEDS ORDERED: ONDANSETRON HCL 4MG/2ML INJ IV PRN (09:00)
[2020-03-01] MEDS ORDERED: ENOXAPARIN 40MG/0.4ML SYR SUBCUT SCH (09:40)
[2020-03-01] MEDS: FUROSEMIDE 40MG/4ML VIAL IV SCH ×2 (10:34→16:46)
[2020-03-01] MEDS: ALBUTEROL 6.7GM HFA INHALER ORI SCH ×2 (12:50→20:15)
[2020-03-01] MEDS: METHYLPREDNISOLONE SOD SUCC 40 MG/ML VIAL IV SCH ×2 (14:06→21:50)
[2020-03-01] MEDS: PANTOPRAZOLE 40MG DR TABLET PO SCH (14:06)
[2020-03-01 15:58] LABS: PHOSPHORUS 5.5 mg/dL (2.5-4.9)
[2020-03-01 21:00] VITALS: BP 135/59
[2020-03-01] MEDS: ENOXAPARIN 40MG/0.4ML SYR SUBCUT SCH (21:00)
[2020-03-02 00:15] VITALS: BP 124/65
[2020-03-02 04:00] VITALS: BP 146/77
[2020-03-02] MEDS: METHYLPREDNISOLONE SOD SUCC 40 MG/ML VIAL IV SCH ×3 (06:19→20:35)
[2020-03-02] MEDS: FUROSEMIDE 40MG/4ML VIAL IV SCH ×2 (06:20→18:28)
[2020-03-02] MEDS: PANTOPRAZOLE 40MG DR TABLET PO SCH (06:20)
[2020-03-02 08:00] VITALS: BP 123/59
[2020-03-02 08:00] LABS: CHLORIDE 98 mEq/L (98-107)
[2020-03-02 08:08] LABS: LDL CHOLESTEROL 57 mg/dL (5-100)
[2020-03-02 08:09] LABS: HDL CHOLESTEROL 56 mg/dL (40-59)
[2020-03-02] MEDS: ENOXAPARIN 40MG/0.4ML SYR SUBCUT SCH (08:56)
[2020-03-02 09:46] LABS: HEMATOCRIT. 41.8 % (36.0-48.0); HEMOGLOBIN. 12.3 g/dL (12.0-16.0); MEAN CORPUSCULAR HEMOGLOBIN 26.9 pg (28.0-32.0); MEAN CORPUSCULAR VOLUME 91.1 fL (81.0-99.0); MEAN PLATELET VOLUME 9.3 fl (7.4-10.4); PLATELET 93 x1000/uL (130-400); RED BLOOD CELL COUNT 4.59 mill/uL (4.2-5.4); RED CELL DISTRIBUTION WIDTH 17.3 % (11.6-14.6)
[2020-03-02] MEDS ORDERED: LORAZEPAM 2MG/ML CPJ IV NR (11:45)
[2020-03-02 12:00] VITALS: BP_SYST 127; BP_SYST 132; BP_DIAS 57; BP_DIAS 70
[2020-03-02] MEDS ORDERED: CLONAZEPAM 0.5MG TABLET PO PRN (13:30)
[2020-03-02 16:00] VITALS: BP 137/64
[2020-03-02 16:13] LABS: NUCLEATED RED BLOOD CELLS 2 /100 WBC; PLATELET ESTIMATE DECREASED
[2020-03-02] MEDS ORDERED: SODIUM POLYSTYRENE SULFONATE 15 G/60 ML BOT PO SCH (17:00)
[2020-03-02 19:53] VITALS: BP 147/60
[2020-03-03] VITALS (8 sets, daily range): BP systolic 133–159; BP diastolic 57–76
[2020-03-03] MEDS: METHYLPREDNISOLONE SOD SUCC 40 MG/ML VIAL IV SCH ×3 (06:01→21:50)
[2020-03-03] MEDS: PANTOPRAZOLE 40MG DR TABLET PO SCH (06:01)
[2020-03-03] MEDS: FUROSEMIDE 40MG/4ML VIAL IV SCH ×2 (06:02→18:36)
[2020-03-03 06:17] LABS: CHLORIDE 96 mEq/L (98-107)
[2020-03-03 06:40] LABS: BASOPHILS % 0.1 % (0.0-2.0); HEMATOCRIT. 38.5 % (36.0-48.0); HEMOGLOBIN. 11.5 g/dL (12.0-16.0); LYMPHOCYTES % 7.6 % (20.0-50.0); MEAN CORPUSCULAR VOLUME 90.1 fL (81.0-99.0); MEAN PLATELET VOLUME 9.6 fl (7.4-10.4); MONOCYTES % 9.4 % (2.0-8.0); NEUTROPHILS % 82.9 % (40.0-76.0); PLATELET 112 x1000/uL (130-400); RED BLOOD CELL COUNT 4.27 mill/uL (4.2-5.4); RED CELL DISTRIBUTION WIDTH 17.2 % (11.6-14.6)
[2020-03-03] MEDS ORDERED: FURO80TA87 MT (12:09)
[2020-03-03] MEDS ORDERED: P50 MT (12:15)
[2020-03-03 13:24] LABS: BG BASE EXCESS 21.8 mmol/L (-2.0-2.0); BG CARBOXYHEMOGLOBIN 1.8 % (0.5-1.5); BG FRACTION INSPIRED OXYGEN 40; BG HCO3 ACT 56.4 mmol/L (22.0-26.0); BG METHEMOGLOBIN 0.4 % (0.0-1.5); BG OXYGEN SATURATION 93.9 % (92.0-98.5); BG OXYHEMOGLOBIN 91.8 % (94.0-97.0); BG PCO2 144.9 mmHg (35.0-45.0); BG PH 7.208 (7.350-7.450); BG PO2 76.3 mmHg (75.0-100.0); BG SAMPLE SITE RIGHT RADIAL; BG TOTAL HEMOGLOBIN 12.9 g/dL (12.0-18.0); BG VENT MODE NASAL CANNULA
[2020-03-03 16:48] LABS: BG BASE EXCESS 26.8 mmol/L (-2.0-2.0); BG BILEVEL POS AIRWAY PRESSURE 18/5; BG CARBOXYHEMOGLOBIN 1.8 % (0.5-1.5); BG DEOXYHEMOGLOBIN 11.2 % (0.0-5.0); BG FRACTION INSPIRED OXYGEN 50; BG HCO3 ACT 59.7 mmol/L (22.0-26.0); BG METHEMOGLOBIN 0.4 % (0.0-1.5); BG OXYGEN SATURATION 88.5 % (92.0-98.5); BG OXYHEMOGLOBIN 86.6 % (94.0-97.0); BG PCO2 120.7 mmHg (35.0-45.0); BG PH 7.312 (7.350-7.450); BG PO2 55.4 mmHg (75.0-100.0); BG SAMPLE SITE RIGHT RADIAL; BG TOTAL HEMOGLOBIN 12.8 g/dL (12.0-18.0); BG VENT MODE MASK - BIPAP; BG VENT RATE 20 set
[2020-03-03] MEDS: ALBUTEROL 6.7GM HFA INHALER ORI SCH (20:27)
[2020-03-03] MEDS: ENOXAPARIN 30MG/0.3ML SYR SUBCUT SCH (21:00)
[2020-03-04] VITALS (10 sets, daily range): BP systolic 136–172; BP diastolic 61–86
[2020-03-04] MEDS: ALBUTEROL 6.7GM HFA INHALER ORI SCH (01:58)
[2020-03-04] MEDS: METHYLPREDNISOLONE SOD SUCC 40 MG/ML VIAL IV SCH ×2 (06:03→15:40)
[2020-03-04 07:05] LABS: CHLORIDE 94 mEq/L (98-107)
[2020-03-04 07:11] LABS: BASOPHILS % 0.1 % (0.0-2.0); HEMATOCRIT. 41.1 % (36.0-48.0); HEMOGLOBIN. 12.3 g/dL (12.0-16.0); LYMPHOCYTES % 10.2 % (20.0-50.0); MEAN CORPUSCULAR HEMOGLOBIN 26.8 pg (28.0-32.0); MEAN CORPUSCULAR VOLUME 89.5 fL (81.0-99.0); MEAN PLATELET VOLUME 9.2 fl (7.4-10.4); MONOCYTES % 7.2 % (2.0-8.0); NEUTROPHILS % 82.5 % (40.0-76.0); PLATELET 94 x1000/uL (130-400); RED CELL DISTRIBUTION WIDTH 17.5 % (11.6-14.6)
[2020-03-04 07:34] LABS: BG BILEVEL POS AIRWAY PRESSURE 18/5; BG CARBOXYHEMOGLOBIN 1.4 % (0.5-1.5); BG DEOXYHEMOGLOBIN 6.4 % (0.0-5.0); BG HCO3 ACT 61.8 mmol/L (22.0-26.0); BG METHEMOGLOBIN 0.3 % (0.0-1.5); BG OXYGEN SATURATION 93.5 % (92.0-98.5); BG OXYHEMOGLOBIN 91.9 % (94.0-97.0); BG PCO2 142.6 mmHg (35.0-45.0); BG PH 7.255 (7.350-7.450); BG PO2 74.9 mmHg (75.0-100.0); BG SAMPLE SITE RIGHT RADIAL; BG TOTAL HEMOGLOBIN 13.3 g/dL (12.0-18.0); BG VENT MODE MASK - BIPAP; BG VENT RATE 20 set
[2020-03-04] MEDS: FUROSEMIDE 40MG/4ML VIAL IV SCH (08:58)
[2020-03-04] MEDS: PANTOPRAZOLE 40MG DR TABLET PO SCH (08:58)
[2020-03-04] MEDS: ENOXAPARIN 30MG/0.3ML SYR SUBCUT SCH (08:59)
[2020-03-04] MEDS ORDERED: AMLODIPINE 2.5MG TABLET PO SCH (09:00)
[2020-03-04] MEDS ORDERED: IPRATROPIUM/ALBUTEROL 0.5-3(2.5)MG/3ML NEB HHN PRN (11:45)
[2020-03-04] MEDS ORDERED: IPRATROPIUM/ALBUTEROL 0.5-3(2.5)MG/3ML NEB HHN SCH (12:20)
== END 2020-03-04 17:45 | disposition home health service (06) | DRG 291 ==
LOC: ER 23:44 → 7WST 03-01 01:30 → ENRESERV 03-01 01:43 → 8WST 03-01 20:55 → 5EST 03-03 17:44
PROVIDERS: ADMIT Family Medicine Adult Medicine; ATTEND Internal Medicine
PROC: 4B02XTZ Measurement of Cardiac Defibrillator, External Approach (ICD-10-PCS; principal; 2020-02-29)
PROC: 5A09457 Assistance with Respiratory Ventilation, 24-96 Consecutive Hours, Continuous Positive Airway Pressure (ICD-10-PCS; 2020-03-03)
DX: I11.0 Hypertensive heart disease with heart failure (principal); J96.22 Acute and chronic respiratory failure with hypercapnia; G92 Toxic encephalopathy; J96.21 Acute and chronic respiratory failure with hypoxia; J44.1 Chronic obstructive pulmonary disease with (acute) exacerbation; J84.9 Interstitial pulmonary disease, unspecified; D68.59 Other primary thrombophilia; E66.2 Morbid (severe) obesity with alveolar hypoventilation; E87.4 Mixed disorder of acid-base balance; L03.116 Cellulitis of left lower limb; L03.115 Cellulitis of right lower limb; I50.43 Acute on chronic combined systolic (congestive) and diastolic (congestive) heart failure; I42.9 Cardiomyopathy, unspecified; I87.2 Venous insufficiency (chronic) (peripheral); K21.9 Gastro-esophageal reflux disease without esophagitis; I48.0 Paroxysmal atrial fibrillation; I27.21 Secondary pulmonary arterial hypertension; I44.7 Left bundle-branch block, unspecified; I25.10 Atherosclerotic heart disease of native coronary artery without angina pectoris; F41.1 Generalized anxiety disorder; D69.6 Thrombocytopenia, unspecified; E78.5 Hyperlipidemia, unspecified; L30.9 Dermatitis, unspecified; M19.90 Unspecified osteoarthritis, unspecified site; Z20.828 Contact with and (suspected) exposure to other viral communicable diseases; T50.2X5A Adverse effect of carbonic-anhydrase inhibitors, benzothiadiazides and other diuretics, initial encounter; Z79.01 Long term (current) use of anticoagulants; Z79.899 Other long term (current) drug therapy; Z95.810 Presence of automatic (implantable) cardiac defibrillator; Z87.440 Personal history of urinary (tract) infections; Z99.81 Dependence on supplemental oxygen; Z90.49 Acquired absence of other specified parts of digestive tract; Z68.38 Body mass index [BMI] 38.0-38.9, adult; Y92.89 Other specified places as the place of occurrence of the external cause
CPT/HCPCS: 36415; 36600; 71045; 80048; 80053; 80061; 82375; 82805; 83605; 83735; 83880; 84100; 84145; 84443; 84484; 85025; 87635; 93005; 93306; 93970; 94640; 94660; 96374; 97162; 97166; 99285; J1200; J1650; J1940; J2060; J2405; J2920

== ENCOUNTER 2020-03-04 22:33 | Emergency (ER) | payer MEDICARE, MEDICAID ==
[~2020-03-04] VITALS: Ht 157.5 cm; Wt 91.0 kg
[~2020-03-04 22:33] MED LIST changes: -FURO-151 MT; +FURO80TA87 MT; +P50 MT
[2020-03-04] MEDS ORDERED: ALPRAZOLAM 0.25 MG TABLET PO ONE (23:45)
[2020-03-05 01:51] VITALS: BP 131/56
== END 2020-03-05 01:53 | disposition home or self-care (01) ==
LOC: ER 22:33
DX: F41.9 Anxiety disorder, unspecified (principal); I11.0 Hypertensive heart disease with heart failure; I50.9 Heart failure, unspecified; J44.1 Chronic obstructive pulmonary disease with (acute) exacerbation; Z79.899 Other long term (current) drug therapy
CPT/HCPCS: 93005; 99283

== ENCOUNTER 2020-05-17 11:44 | Inpatient (IN) | payer MEDICARE, MEDICAID ==
[~2020-05-17] VITALS: Ht 149.9 cm; Wt 86.8 kg
[2020-05-17] MEDS ORDERED: CEFTRIAXONE 1 G PREMIX 50 ML IV ONE (12:15)
[2020-05-17] MEDS ORDERED: AZITHROMYCIN 500 MG in DEXT 5% WATER 250 ML IV ONE (12:15)
[2020-05-17 12:57] LABS: BASOPHILS % 1.2 % (0.0-2.0); EOSINOPHILS % 2.2 % (0.0-5.0); HEMOGLOBIN. 10.7 g/dL (12.0-16.0); LYMPHOCYTES % 18.8 % (20.0-50.0); MEAN CORPUSCULAR HEMOGLOBIN 25.6 pg (28.0-32.0); MEAN CORPUSCULAR VOLUME 85.8 fL (81.0-99.0); MEAN PLATELET VOLUME 8.9 fl (7.4-10.4); MONOCYTES % 11.2 % (2.0-8.0); NEUTROPHILS % 66.6 % (40.0-76.0); PLATELET 120 x1000/uL (130-400); RED BLOOD CELL COUNT 4.19 mill/uL (4.2-5.4); RED CELL DISTRIBUTION WIDTH 20.5 % (11.6-14.6)
[2020-05-17] MEDS ORDERED: NITROGLYCERIN OINT 1GM/INCH UDPKT TD ONE (13:00)
[2020-05-17] MEDS ORDERED: FUROSEMIDE 40MG/4ML VIAL IV ONE (13:00)
[2020-05-17] MEDS ORDERED: ASPIRIN 81MG TABLET PO ONE (13:00)
[2020-05-17 13:02] LABS: CHLORIDE 95 mEq/L (98-107)
[2020-05-17 13:19] LABS: INR 1.1; PROTHROMBIN TIME 11.4 sec (9.6-11.0)
[2020-05-17 13:28] LABS: BG BASE EXCESS 19.5 mmol/L (-2.0-2.0); BG CARBOXYHEMOGLOBIN 1.4 % (0.5-1.5); BG DEOXYHEMOGLOBIN 3.5 % (0.0-5.0); BG FRACTION INSPIRED OXYGEN 32; BG HCO3 ACT 53.6 mmol/L (22.0-26.0); BG METHEMOGLOBIN 0.1 % (0.0-1.5); BG OXYGEN SATURATION 96.4 % (92.0-98.5); BG PCO2 143.3 mmHg (35.0-45.0); BG PH 7.191 (7.350-7.450); BG PO2 97.8 mmHg (75.0-100.0); BG SAMPLE SITE RIGHT RADIAL; BG TOTAL HEMOGLOBIN 12.2 g/dL (12.0-18.0); BG VENT MODE NASAL CANNULA
[2020-05-17] MEDS ORDERED: ALBUTEROL 6.7GM HFA INHALER ORI PRN (14:45)
[2020-05-17 15:09] LABS: BG BASE EXCESS 18.5 mmol/L (-2.0-2.0); BG CARBOXYHEMOGLOBIN 1.1 % (0.5-1.5); BG DEOXYHEMOGLOBIN 7.9 % (0.0-5.0); BG FRACTION INSPIRED OXYGEN 50; BG HCO3 ACT 52.3 mmol/L (22.0-26.0); BG METHEMOGLOBIN 0.4 % (0.0-1.5); BG OXYHEMOGLOBIN 90.6 % (94.0-97.0); BG PCO2 145.1 mmHg (35.0-45.0); BG PH 7.175 (7.350-7.450); BG TOTAL HEMOGLOBIN 11.5 g/dL (12.0-18.0); BG VENT MODE MASK - BIPAP
[2020-05-17] MEDS ORDERED: PROPOFOL 10MG/ML 100ML 100 ML IV STA (15:24)
[2020-05-17 15:32] LABS: CLARITY URINE CLEAR (CLEAR); COLOR URINE YELLOW (YELLOW); KETONES URINE NEGATIVE (NEGATIVE); LEUKOCYTE ESTERASE URINE NEGATIVE (NEGATIVE); NITRITE URINE NEGATIVE (NEGATIVE); OCCULT BLOOD URINE NEGATIVE (NEGATIVE); PROTEIN URINE TRACE (NEGATIVE); SPECIFIC GRAVITY URINE 1.015 (1.005-1.030)
[2020-05-17] MEDS ORDERED: FENTANYL CITRATE/PF 1,000 MCG in SODIUM CHLORIDE 0.9% 80 ML IV PRN ×2 (16:45→18:30)
[2020-05-17] MEDS ORDERED: PROPOFOL 10MG/ML 100ML 100 ML IV PRN (16:45)
[2020-05-17] MEDS ORDERED: NOREPINEPHRINE 8 MG in DEXT 5% WATER 242 ML IV STA (16:52)
[2020-05-17 16:59] LABS: BG BASE EXCESS 19.4 mmol/L (-2.0-2.0); BG CARBOXYHEMOGLOBIN 1.3 % (0.5-1.5); BG DEOXYHEMOGLOBIN 5.7 % (0.0-5.0); BG FRACTION INSPIRED OXYGEN 100; BG HCO3 ACT 49.9 mmol/L (22.0-26.0); BG METHEMOGLOBIN 0.2 % (0.0-1.5); BG OXYGEN SATURATION 94.2 % (92.0-98.5); BG OXYHEMOGLOBIN 92.8 % (94.0-97.0); BG PCO2 99.1 mmHg (35.0-45.0); BG PO2 70.1 mmHg (75.0-100.0); BG SAMPLE SITE RIGHT RADIAL; BG TOTAL HEMOGLOBIN 11.6 g/dL (12.0-18.0); BG VENT MODE VENT - AC
[2020-05-17] MEDS: FUROSEMIDE 40MG/4ML VIAL IVP SCH (17:59)
[2020-05-17] MEDS ORDERED: IPRATROPIUM/ALBUTEROL 0.5-3(2.5)MG/3ML NEB HHN SCH (18:00)
[2020-05-17] MEDS ORDERED: ACETAMINOPHEN 325MG TABLET PO PRN (18:45)
[2020-05-17] MEDS ORDERED: ONDANSETRON HCL 4MG/2ML INJ IV PRN (18:45)
[2020-05-17] MEDS ORDERED: TRAZODONE HCL 50MG TABLET PO PRN (18:45)
[2020-05-17] MEDS ORDERED: NOREPINEPHRINE 8 MG in DEXT 5% WATER 242 ML IV SCH (19:00)
[2020-05-17] MEDS: HEPARIN 5000 UNITS/ML VIAL SUBCUT SCH (21:00)
[2020-05-18 05:25] LABS: BASOPHILS % 0.8 % (0.0-2.0); EOSINOPHILS % 1.1 % (0.0-5.0); HEMATOCRIT. 36.5 % (36.0-48.0); HEMOGLOBIN. 11.2 g/dL (12.0-16.0); LYMPHOCYTES % 23.4 % (20.0-50.0); MEAN CORPUSCULAR HEMOGLOBIN 25.7 pg (28.0-32.0); MEAN CORPUSCULAR VOLUME 83.5 fL (81.0-99.0); MEAN PLATELET VOLUME 9.1 fl (7.4-10.4); MONOCYTES % 14.6 % (2.0-8.0); NEUTROPHILS % 60.1 % (40.0-76.0); PLATELET 131 x1000/uL (130-400); RED BLOOD CELL COUNT 4.38 mill/uL (4.2-5.4); RED CELL DISTRIBUTION WIDTH 19.9 % (11.6-14.6)
[2020-05-18 05:29] LABS: CHLORIDE 93 mEq/L (98-107)
[2020-05-18] MEDS: FUROSEMIDE 40MG/4ML VIAL IVP SCH ×2 (07:40→17:02)
[2020-05-18] MEDS ORDERED: CEFTRIAXONE 1 G PREMIX 50 ML IV SCH (09:00)
[2020-05-18 09:18] LABS: BG CARBOXYHEMOGLOBIN 1.3 % (0.5-1.5); BG DEOXYHEMOGLOBIN 2.5 % (0.0-5.0); BG FRACTION INSPIRED OXYGEN 50; BG HCO3 ACT 39.5 mmol/L (22.0-26.0); BG METHEMOGLOBIN 0.3 % (0.0-1.5); BG OXYGEN SATURATION 97.5 % (92.0-98.5); BG OXYHEMOGLOBIN 95.9 % (94.0-97.0); BG PCO2 42.8 mmHg (35.0-45.0); BG PH 7.583 (7.350-7.450); BG SAMPLE SITE RIGHT RADIAL; BG TOTAL HEMOGLOBIN 11.8 g/dL (12.0-18.0); BG VENT MODE VENT - AC
[2020-05-18] MEDS: HEPARIN 5000 UNITS/ML VIAL SUBCUT SCH ×2 (09:42→21:00)
[2020-05-18] MEDS: AZITHROMYCIN 500 MG in DEXT 5% WATER 250 ML IV SCH (13:00)
[2020-05-18] MEDS ORDERED: IPRATROPIUM/ALBUTEROL 0.5-3(2.5)MG/3ML NEB HHN PRN (13:15)
[2020-05-18] MEDS: PANTOPRAZOLE SODIUM 40 MG/VIAL IV SCH (13:53)
[2020-05-18] MEDS: MIDAZOLAM HCL 100 MG in DEXT 5% WATER 80 ML IV PRN (15:45)
[2020-05-18] MEDS: METHYLPREDNISOLONE SOD SUCC 40 MG/ML VIAL IV SCH ×2 (16:42→22:00)
[2020-05-18] MEDS ORDERED: FENTANYL CITRATE/PF 1,000 MCG in SODIUM CHLORIDE 0.9% 80 ML IV PRN (18:53)
[2020-05-18] MEDS: IPRATROPIUM/ALBUTEROL 0.5-3(2.5)MG/3ML NEB HHN SCH (21:19)
[2020-05-19] VITALS (15 sets, daily range): BP systolic 109–137; BP diastolic 48–89
[2020-05-19] MEDS: IPRATROPIUM/ALBUTEROL 0.5-3(2.5)MG/3ML NEB HHN SCH ×6 (01:22→22:56)
[2020-05-19 05:28] LABS: CHLORIDE 92 mEq/L (98-107)
[2020-05-19 05:35] LABS: PHOSPHORUS 4.3 mg/dL (2.5-4.9)
[2020-05-19 05:43] LABS: BASOPHILS % 0.3 % (0.0-2.0); HEMATOCRIT. 40.3 % (36.0-48.0); HEMOGLOBIN. 12.8 g/dL (12.0-16.0); MEAN CORPUSCULAR HEMOGLOBIN 25.6 pg (28.0-32.0); MEAN CORPUSCULAR VOLUME 80.9 fL (81.0-99.0); MEAN PLATELET VOLUME 9.5 fl (7.4-10.4); NEUTROPHILS % 87.7 % (40.0-76.0); PLATELET 130 x1000/uL (130-400); RED BLOOD CELL COUNT 4.99 mill/uL (4.2-5.4); RED CELL DISTRIBUTION WIDTH 20.6 % (11.6-14.6)
[2020-05-19] MEDS: METHYLPREDNISOLONE SOD SUCC 40 MG/ML VIAL IV SCH ×3 (06:00→23:51)
[2020-05-19] MEDS: FUROSEMIDE 40MG/4ML VIAL IVP SCH ×2 (06:33→17:30)
[2020-05-19] MEDS: HEPARIN 5000 UNITS/ML VIAL SUBCUT SCH (09:00)
[2020-05-19] MEDS: PANTOPRAZOLE SODIUM 40 MG/VIAL IV SCH (09:00)
[2020-05-19] MEDS ORDERED: AMIODARONE HCL 50MG/ML 3ML VIAL IV ONE (09:45)
[2020-05-19] MEDS ORDERED: AMIODARONE HCL 150 MG in DEXT 5% WATER 100 ML IV NR (09:45)
[2020-05-19] MEDS ORDERED: AMIODARONE HCL 900 MG in DEXT 5% WATER 482 ML IV SCH (09:45)
[2020-05-19] MEDS ORDERED: CEFTRIAXONE SODIUM 1 G/VIAL ONE (09:59)
[2020-05-19] MEDS ORDERED: CEFTRIAXONE 1 G PREMIX 50 ML IV SCH (10:00)
[2020-05-19] MEDS ORDERED: CEFTRIAXONE 1,000 MG in DEXTROSE 5% WATER 50 ML IV SCH (10:00)
[2020-05-19 10:09] LABS: BG BASE EXCESS 8.5 mmol/L (-2.0-2.0); BG CARBOXYHEMOGLOBIN 1.4 % (0.5-1.5); BG FRACTION INSPIRED OXYGEN 40; BG HCO3 ACT 33.7 mmol/L (22.0-26.0); BG METHEMOGLOBIN 0.2 % (0.0-1.5); BG OXYGEN SATURATION 92.9 % (92.0-98.5); BG OXYHEMOGLOBIN 91.4 % (94.0-97.0); BG PCO2 48.8 mmHg (35.0-45.0); BG PH 7.457 (7.350-7.450); BG PO2 64.1 mmHg (75.0-100.0); BG SAMPLE SITE RIGHT RADIAL; BG TOTAL HEMOGLOBIN 13.5 g/dL (12.0-18.0); BG VENT MODE VENT - AC
[2020-05-19] MEDS: AZITHROMYCIN 500 MG in DEXT 5% WATER 250 ML IV SCH (11:00)
[2020-05-19] MEDS: ENOXAPARIN 80MG/0.8ML SYR SUBCUT SCH ×2 (12:42→23:52)
[2020-05-19 13:59] LABS: BG CARBOXYHEMOGLOBIN 1.2 % (0.5-1.5); BG DEOXYHEMOGLOBIN 15.1 % (0.0-5.0); BG FRACTION INSPIRED OXYGEN 30; BG METHEMOGLOBIN 0.3 % (0.0-1.5); BG OXYGEN SATURATION 84.7 % (92.0-98.5); BG OXYHEMOGLOBIN 83.4 % (94.0-97.0); BG PCO2 84.9 mmHg (35.0-45.0); BG PEEP (cmH2O) 0 cmH2O; BG PH 7.322 (7.350-7.450); BG PO2 56.2 mmHg (75.0-100.0); BG SAMPLE SITE RIGHT RADIAL; BG TOTAL HEMOGLOBIN 13.7 g/dL (12.0-18.0); BG VENT MODE VENT - CPAP
[2020-05-19] MEDS ORDERED: PROPOFOL 10MG/ML 100ML 100 ML IV PRN (15:15)
[2020-05-19] MEDS ORDERED: LORAZEPAM 2MG/ML CPJ IV PRN (18:30)
[2020-05-19] MEDS ORDERED: AMIODARONE HCL 150 MG in DEXT 5% WATER 100 ML IV PRN (18:30)
[2020-05-19] MEDS ORDERED: AMIODARONE HCL 900 MG in DEXT 5% WATER 482 ML IV PRN (18:30)
[2020-05-19 21:11] LABS: BG CARBOXYHEMOGLOBIN 0.6 % (0.5-1.5); BG DEOXYHEMOGLOBIN 7.6 % (0.0-5.0); BG FRACTION INSPIRED OXYGEN 40; BG HCO3 ACT 42.4 mmol/L (22.0-26.0); BG METHEMOGLOBIN 0.4 % (0.0-1.5); BG OXYGEN SATURATION 92.3 % (92.0-98.5); BG OXYHEMOGLOBIN 91.4 % (94.0-97.0); BG PCO2 81.2 mmHg (35.0-45.0); BG PH 7.336 (7.350-7.450); BG PO2 69.3 mmHg (75.0-100.0); BG SAMPLE SITE RIGHT RADIAL; BG TOTAL HEMOGLOBIN 13.3 g/dL (12.0-18.0); BG VENT MODE VENT - SIMV
[2020-05-19] MEDS: FENTANYL CITRATE/PF 1,000 MCG in SODIUM CHLORIDE 0.9% 80 ML IV PRN (22:32)
[2020-05-20] VITALS (84 sets, daily range): BP systolic 79–190; BP diastolic 25–156
[2020-05-20] MEDS: IPRATROPIUM/ALBUTEROL 0.5-3(2.5)MG/3ML NEB HHN SCH ×6 (00:35→20:58)
[2020-05-20] MEDS: MIDAZOLAM HCL 100 MG in DEXT 5% WATER 80 ML IV PRN ×2 (01:04→15:13)
[2020-05-20 05:38] LABS: HEMATOCRIT. 36.2 % (36.0-48.0); HEMOGLOBIN. 11.7 g/dL (12.0-16.0); MEAN CORPUSCULAR HEMOGLOBIN 26.3 pg (28.0-32.0); MEAN CORPUSCULAR VOLUME 81.1 fL (81.0-99.0); MEAN PLATELET VOLUME 9.3 fl (7.4-10.4); PLATELET 137 x1000/uL (130-400); RED BLOOD CELL COUNT 4.46 mill/uL (4.2-5.4); RED CELL DISTRIBUTION WIDTH 20.6 % (11.6-14.6)
[2020-05-20] MEDS: METHYLPREDNISOLONE SOD SUCC 40 MG/ML VIAL IV SCH ×3 (05:43→23:45)
[2020-05-20 05:57] LABS: CHLORIDE 92 mEq/L (98-107)
[2020-05-20] MEDS: FUROSEMIDE 40MG/4ML VIAL IVP SCH ×2 (06:25→17:08)
[2020-05-20] MEDS: NOREPINEPHRINE 8 MG in DEXTROSE 5% WATER 250 ML IV PRN (06:54)
[2020-05-20 08:04] LABS: PLATELET ESTIMATE NORMAL
[2020-05-20] MEDS: PANTOPRAZOLE SODIUM 40 MG/VIAL IV SCH (09:27)
[2020-05-20] MEDS: FENTANYL CITRATE/PF 1,000 MCG in SODIUM CHLORIDE 0.9% 80 ML IV PRN (09:28)
[2020-05-20] MEDS: CEFTRIAXONE 1,000 MG in DEXTROSE 5% WATER 50 ML IV SCH (09:29)
[2020-05-20 10:16] LABS: BG BASE EXCESS 9.8 mmol/L (-2.0-2.0); BG CARBOXYHEMOGLOBIN 1.3 % (0.5-1.5); BG FRACTION INSPIRED OXYGEN 40; BG HCO3 ACT 33.9 mmol/L (22.0-26.0); BG METHEMOGLOBIN 0.1 % (0.0-1.5); BG OXYGEN SATURATION 93.9 % (92.0-98.5); BG OXYHEMOGLOBIN 92.6 % (94.0-97.0); BG PCO2 43.5 mmHg (35.0-45.0); BG PH 7.509 (7.350-7.450); BG PO2 62.5 mmHg (75.0-100.0); BG SAMPLE SITE RIGHT RADIAL; BG TOTAL HEMOGLOBIN 12.1 g/dL (12.0-18.0); BG VENT MODE VENT - AC
[2020-05-20] MEDS: ENOXAPARIN 80MG/0.8ML SYR SUBCUT SCH ×2 (10:43→21:46)
[2020-05-20] MEDS: AZITHROMYCIN 500 MG in DEXT 5% WATER 250 ML IV SCH (11:21)
[2020-05-20] MEDS ORDERED: QUET50TA PO (12:26)
[2020-05-20] MEDS ORDERED: LOSA50TA41 PO (12:26)
[2020-05-20] MEDS ORDERED: COR3 PO (12:26)
[2020-05-21] VITALS (86 sets, daily range): BP systolic 83–160; BP diastolic 36–99
[2020-05-21] MEDS: IPRATROPIUM/ALBUTEROL 0.5-3(2.5)MG/3ML NEB HHN SCH ×6 (00:51→20:16)
[2020-05-21 05:33] LABS: HEMATOCRIT. 35.7 % (36.0-48.0); HEMOGLOBIN. 11.1 g/dL (12.0-16.0); MEAN CORPUSCULAR HEMOGLOBIN 25.4 pg (28.0-32.0); MEAN CORPUSCULAR VOLUME 81.6 fL (81.0-99.0); PLATELET 135 x1000/uL (130-400); RED BLOOD CELL COUNT 4.38 mill/uL (4.2-5.4); RED CELL DISTRIBUTION WIDTH 20.9 % (11.6-14.6)
[2020-05-21 05:40] LABS: CHLORIDE 93 mEq/L (98-107)
[2020-05-21 06:48] LABS: PLATELET ESTIMATE NORMAL
[2020-05-21] MEDS: METHYLPREDNISOLONE SOD SUCC 40 MG/ML VIAL IV SCH ×3 (06:49→21:44)
[2020-05-21] MEDS: FUROSEMIDE 40MG/4ML VIAL IVP SCH ×2 (08:29→17:25)
[2020-05-21] MEDS: PANTOPRAZOLE SODIUM 40 MG/VIAL IV SCH (09:08)
[2020-05-21] MEDS: CEFTRIAXONE 1,000 MG in DEXTROSE 5% WATER 50 ML IV SCH (09:09)
[2020-05-21] MEDS: ENOXAPARIN 80MG/0.8ML SYR SUBCUT SCH ×2 (09:09→21:44)
[2020-05-21 10:22] LABS: BG BASE EXCESS 11.9 mmol/L (-2.0-2.0); BG CARBOXYHEMOGLOBIN 0.5 % (0.5-1.5); BG DEOXYHEMOGLOBIN 7.8 % (0.0-5.0); BG FRACTION INSPIRED OXYGEN 40; BG HCO3 ACT 40.6 mmol/L (22.0-26.0); BG METHEMOGLOBIN 0.2 % (0.0-1.5); BG OXYGEN SATURATION 92.1 % (92.0-98.5); BG OXYHEMOGLOBIN 91.5 % (94.0-97.0); BG PCO2 76.3 mmHg (35.0-45.0); BG PH 7.344 (7.350-7.450); BG PO2 68.3 mmHg (75.0-100.0); BG SAMPLE SITE RIGHT RADIAL; BG TOTAL HEMOGLOBIN 12.5 g/dL (12.0-18.0); BG TOTAL RESPIRATORY RATE 10 b/min; BG VENT MODE VENT - SIMV
[2020-05-21] MEDS: AZITHROMYCIN 500 MG in DEXT 5% WATER 250 ML IV SCH (11:05)
[2020-05-21 12:40] LABS: BG BASE EXCESS 12.3 mmol/L (-2.0-2.0); BG CARBOXYHEMOGLOBIN 0.3 % (0.5-1.5); BG DEOXYHEMOGLOBIN 7.1 % (0.0-5.0); BG FRACTION INSPIRED OXYGEN 40; BG HCO3 ACT 39.7 mmol/L (22.0-26.0); BG METHEMOGLOBIN 0.3 % (0.0-1.5); BG OXYGEN SATURATION 92.9 % (92.0-98.5); BG OXYHEMOGLOBIN 92.3 % (94.0-97.0); BG PCO2 66.7 mmHg (35.0-45.0); BG PH 7.393 (7.350-7.450); BG PO2 67.4 mmHg (75.0-100.0); BG SAMPLE SITE RIGHT RADIAL; BG TOTAL HEMOGLOBIN 12.1 g/dL (12.0-18.0); BG TOTAL RESPIRATORY RATE 12 b/min; BG VENT MODE VENT - AC
[2020-05-21] MEDS: FENTANYL CITRATE/PF 1,000 MCG in SODIUM CHLORIDE 0.9% 80 ML IV PRN (19:31)
[2020-05-21] MEDS: NOREPINEPHRINE 8 MG in DEXTROSE 5% WATER 250 ML IV PRN (20:55)
[2020-05-22] VITALS (89 sets, daily range): BP systolic 88–154; BP diastolic 33–95
[2020-05-22] MEDS: IPRATROPIUM/ALBUTEROL 0.5-3(2.5)MG/3ML NEB HHN SCH ×7 (00:27→23:50)
[2020-05-22] MEDS: MIDAZOLAM HCL 100 MG in DEXT 5% WATER 80 ML IV PRN ×2 (02:42→20:39)
[2020-05-22] MEDS: NOREPINEPHRINE 8 MG in DEXTROSE 5% WATER 250 ML IV PRN (04:44)
[2020-05-22] MEDS: METHYLPREDNISOLONE SOD SUCC 40 MG/ML VIAL IV SCH ×3 (06:03→21:18)
[2020-05-22] MEDS: FUROSEMIDE 40MG/4ML VIAL IVP SCH ×2 (06:12→12:00)
[2020-05-22 08:03] LABS: BG BASE EXCESS 15.5 mmol/L (-2.0-2.0); BG CARBOXYHEMOGLOBIN 0.9 % (0.5-1.5); BG DEOXYHEMOGLOBIN 9.2 % (0.0-5.0); BG FRACTION INSPIRED OXYGEN 40; BG HCO3 ACT 41.7 mmol/L (22.0-26.0); BG METHEMOGLOBIN 0.1 % (0.0-1.5); BG OXYGEN SATURATION 90.7 % (92.0-98.5); BG OXYHEMOGLOBIN 89.8 % (94.0-97.0); BG PCO2 57.9 mmHg (35.0-45.0); BG PH 7.475 (7.350-7.450); BG PO2 58.4 mmHg (75.0-100.0); BG SAMPLE SITE LEFT RADIAL; BG TOTAL HEMOGLOBIN 12.5 g/dL (12.0-18.0); BG TOTAL RESPIRATORY RATE 17 b/min; BG VENT MODE VENT - AC
[2020-05-22] MEDS: PANTOPRAZOLE SODIUM 40 MG/VIAL IV SCH (09:07)
[2020-05-22] MEDS: ENOXAPARIN 80MG/0.8ML SYR SUBCUT SCH ×2 (09:08→21:00)
[2020-05-22 09:42] LABS: HEMATOCRIT. 36.6 % (36.0-48.0); HEMOGLOBIN. 11.4 g/dL (12.0-16.0); MEAN CORPUSCULAR HEMOGLOBIN 25.4 pg (28.0-32.0); MEAN CORPUSCULAR VOLUME 81.7 fL (81.0-99.0); MEAN PLATELET VOLUME 9.5 fl (7.4-10.4); PLATELET 135 x1000/uL (130-400); RED BLOOD CELL COUNT 4.48 mill/uL (4.2-5.4)
[2020-05-22 10:01] LABS: CHLORIDE 96 mEq/L (98-107)
[2020-05-22] MEDS: MIDODRINE HCL 5MG TABLET PO SCH ×3 (11:45→17:17)
[2020-05-22 12:25] LABS: PLATELET ESTIMATE NORMAL
[2020-05-23] VITALS (85 sets, daily range): BP systolic 87–193; BP diastolic 38–110
[2020-05-23] MEDS: IPRATROPIUM/ALBUTEROL 0.5-3(2.5)MG/3ML NEB HHN SCH ×5 (03:24→20:00)
[2020-05-23] MEDS: FENTANYL CITRATE/PF 1,000 MCG in SODIUM CHLORIDE 0.9% 80 ML IV PRN (04:56)
[2020-05-23] MEDS: NOREPINEPHRINE 8 MG in DEXTROSE 5% WATER 250 ML IV PRN (04:58)
[2020-05-23 06:14] LABS: BASOPHILS % 0.2 % (0.0-2.0); HEMOGLOBIN. 11.1 g/dL (12.0-16.0); LYMPHOCYTES % 8.1 % (20.0-50.0); MEAN CORPUSCULAR HEMOGLOBIN 25.3 pg (28.0-32.0); MEAN CORPUSCULAR VOLUME 81.8 fL (81.0-99.0); MEAN PLATELET VOLUME 9.7 fl (7.4-10.4); MONOCYTES % 7.5 % (2.0-8.0); NEUTROPHILS % 84.2 % (40.0-76.0); PLATELET 144 x1000/uL (130-400)
[2020-05-23 06:23] LABS: CHLORIDE 99 mEq/L (98-107)
[2020-05-23] MEDS: PANTOPRAZOLE SODIUM 40 MG/VIAL IV SCH (09:55)
[2020-05-23] MEDS: FUROSEMIDE 40MG/4ML VIAL IVP SCH (09:55)
[2020-05-23] MEDS: MIDODRINE HCL 5MG TABLET PO SCH ×3 (09:57→17:00)
[2020-05-23] MEDS: ENOXAPARIN 80MG/0.8ML SYR SUBCUT SCH (09:58)
[2020-05-23] MEDS: METHYLPREDNISOLONE SOD SUCC 40 MG/ML VIAL IV SCH ×2 (09:59→21:12)
[2020-05-23 13:46] LABS: BG CARBOXYHEMOGLOBIN 0.7 % (0.5-1.5); BG DEOXYHEMOGLOBIN 13.7 % (0.0-5.0); BG FRACTION INSPIRED OXYGEN 40; BG METHEMOGLOBIN 0.3 % (0.0-1.5); BG OXYGEN SATURATION 86.2 % (92.0-98.5); BG OXYHEMOGLOBIN 85.3 % (94.0-97.0); BG PCO2 86.9 mmHg (35.0-45.0); BG PH 7.322 (7.350-7.450); BG SAMPLE SITE RIGHT RADIAL; BG TOTAL HEMOGLOBIN 12.9 g/dL (12.0-18.0); BG VENT MODE VENT - CPAP
[2020-05-23] MEDS ORDERED: ENOXAPARIN 100MG/ML SYR SUBCUT SCH (15:20)
[2020-05-23] MEDS ORDERED: MORPHINE SULFATE 2 MG/ML CPJ (NOT FOR IM USE) IV PRN (19:30)
[2020-05-23] MEDS: ENOXAPARIN 100MG/ML SYR SUBCUT SCH (21:12)
[2020-05-23] MEDS: LORAZEPAM 2MG/ML CPJ IV PRN (21:15)
[2020-05-24] VITALS (45 sets, daily range): BP systolic 111–202; BP diastolic 51–179
[2020-05-24] MEDS: IPRATROPIUM/ALBUTEROL 0.5-3(2.5)MG/3ML NEB HHN SCH ×6 (00:33→20:58)
[2020-05-24 02:10] LABS: BG BASE EXCESS 8.2 mmol/L (-2.0-2.0); BG CARBOXYHEMOGLOBIN 0.8 % (0.5-1.5); BG DEOXYHEMOGLOBIN 11.2 % (0.0-5.0); BG FRACTION INSPIRED OXYGEN 50; BG HCO3 ACT 34.3 mmol/L (22.0-26.0); BG METHEMOGLOBIN 0.3 % (0.0-1.5); BG OXYGEN SATURATION 88.7 % (92.0-98.5); BG OXYHEMOGLOBIN 87.7 % (94.0-97.0); BG PCO2 54.4 mmHg (35.0-45.0); BG PH 7.418 (7.350-7.450); BG PO2 55.6 mmHg (75.0-100.0); BG SAMPLE SITE RIGHT RADIAL; BG TOTAL HEMOGLOBIN 13.2 g/dL (12.0-18.0); BG VENT MODE MASK - BIPAP
[2020-05-24] MEDS: LORAZEPAM 2MG/ML CPJ IV PRN (04:06)
[2020-05-24 06:18] LABS: CHLORIDE 101 mEq/L (98-107)
[2020-05-24 06:41] LABS: BASOPHILS % 0.4 % (0.0-2.0); HEMATOCRIT. 40.1 % (36.0-48.0); HEMOGLOBIN. 12.5 g/dL (12.0-16.0); LYMPHOCYTES % 7.8 % (20.0-50.0); MEAN CORPUSCULAR HEMOGLOBIN 25.9 pg (28.0-32.0); MEAN CORPUSCULAR VOLUME 83.3 fL (81.0-99.0); MEAN PLATELET VOLUME 10.1 fl (7.4-10.4); MONOCYTES % 6.6 % (2.0-8.0); NEUTROPHILS % 85.2 % (40.0-76.0); PLATELET 144 x1000/uL (130-400); RED BLOOD CELL COUNT 4.82 mill/uL (4.2-5.4); RED CELL DISTRIBUTION WIDTH 21.1 % (11.6-14.6)
[2020-05-24 09:09] LABS: BG BASE EXCESS 11.2 mmol/L (-2.0-2.0); BG DEOXYHEMOGLOBIN 5.9 % (0.0-5.0); BG FRACTION INSPIRED OXYGEN 60; BG HCO3 ACT 38.5 mmol/L (22.0-26.0); BG METHEMOGLOBIN 0.3 % (0.0-1.5); BG OXYHEMOGLOBIN 92.8 % (94.0-97.0); BG PCO2 63.7 mmHg (35.0-45.0); BG PH 7.399 (7.350-7.450); BG PO2 71.7 mmHg (75.0-100.0); BG SAMPLE SITE RIGHT RADIAL; BG TOTAL HEMOGLOBIN 13.1 g/dL (12.0-18.0); BG VENT MODE COOL AEROSOL
[2020-05-24] MEDS: FUROSEMIDE 40MG/4ML VIAL IVP SCH (10:47)
[2020-05-24] MEDS: METHYLPREDNISOLONE SOD SUCC 40 MG/ML VIAL IV SCH (10:47)
[2020-05-24] MEDS: PANTOPRAZOLE SODIUM 40 MG/VIAL IV SCH (10:47)
[2020-05-24] MEDS: ENOXAPARIN 100MG/ML SYR SUBCUT SCH ×2 (10:48→20:42)
[2020-05-24] MEDS ORDERED: HALOPERIDOL LACTATE 5MG/ML VIAL IM PRN (11:45)
[2020-05-25] VITALS (12 sets, daily range): BP systolic 112–155; BP diastolic 32–77
[2020-05-25] MEDS: IPRATROPIUM/ALBUTEROL 0.5-3(2.5)MG/3ML NEB HHN SCH ×6 (04:27→21:41)
[2020-05-25 06:48] LABS: BASOPHILS % 0.4 % (0.0-2.0); EOSINOPHILS % 0.9 % (0.0-5.0); HEMATOCRIT. 38.9 % (36.0-48.0); HEMOGLOBIN. 12.2 g/dL (12.0-16.0); LYMPHOCYTES % 15.5 % (20.0-50.0); MEAN CORPUSCULAR HEMOGLOBIN 25.9 pg (28.0-32.0); MEAN CORPUSCULAR VOLUME 82.6 fL (81.0-99.0); MONOCYTES % 13.5 % (2.0-8.0); NEUTROPHILS % 69.7 % (40.0-76.0); PLATELET 164 x1000/uL (130-400); RED BLOOD CELL COUNT 4.71 mill/uL (4.2-5.4); RED CELL DISTRIBUTION WIDTH 21.5 % (11.6-14.6)
[2020-05-25 07:45] LABS: CHLORIDE 102 mEq/L (98-107)
[2020-05-25] MEDS: PANTOPRAZOLE SODIUM 40 MG/VIAL IV SCH (08:34)
[2020-05-25] MEDS: FUROSEMIDE 40MG/4ML VIAL IVP SCH (08:34)
[2020-05-25] MEDS: ENOXAPARIN 100MG/ML SYR SUBCUT SCH ×2 (08:34→21:33)
[2020-05-25] MEDS ORDERED: POTASSIUM CHLORIDE 20MEQ TABLET SR PO NR (09:00)
[2020-05-25] MEDS ORDERED: METHYLPREDNISOLONE SOD SUCC 40 MG/ML VIAL IV SCH (09:00)
[2020-05-25 11:23] LABS: BG BASE EXCESS 12.7 mmol/L (-2.0-2.0); BG CARBOXYHEMOGLOBIN 0.9 % (0.5-1.5); BG DEOXYHEMOGLOBIN 6.7 % (0.0-5.0); BG HCO3 ACT 38.9 mmol/L (22.0-26.0); BG METHEMOGLOBIN 0.1 % (0.0-1.5); BG OXYGEN SATURATION 93.2 % (92.0-98.5); BG OXYHEMOGLOBIN 92.3 % (94.0-97.0); BG PCO2 56.3 mmHg (35.0-45.0); BG PH 7.457 (7.350-7.450); BG PO2 66.7 mmHg (75.0-100.0); BG SAMPLE SITE RIGHT BRACHIAL; BG TOTAL HEMOGLOBIN 13.5 g/dL (12.0-18.0); BG VENT MODE MASK - BIPAP
[2020-05-25] MEDS ORDERED: APIX2.5T MT (13:02)
[2020-05-25] MEDS ORDERED: P50 MT (13:13)
[2020-05-25] MEDS ORDERED: MAGNESIUM HYDROXIDE 400MG/5ML 30ML UDC PO PRN (14:30)
[2020-05-25] MEDS ORDERED: POLYETHYLENE GLYCOL 3350 (17GM) 1 DOSE PACK PO PRN (14:30)
[2020-05-25] MEDS ORDERED: SENNOSIDES/DOCUSATE SOD 8.6/50MG TABLET PO PRN (14:30)
[2020-05-25] MEDS ORDERED: BISACODYL 10MG SUPP PR PRN (14:30)
[2020-05-25] MEDS ORDERED: DOCUSATE SODIUM 100MG CAPSULE PO PRN (14:30)
[2020-05-26] VITALS (15 sets, daily range): BP systolic 113–153; BP diastolic 47–98
[2020-05-26] MEDS: IPRATROPIUM/ALBUTEROL 0.5-3(2.5)MG/3ML NEB HHN SCH ×6 (01:35→21:52)
[2020-05-26 07:17] LABS: BASOPHILS % 0.6 % (0.0-2.0); EOSINOPHILS % 1.3 % (0.0-5.0); HEMOGLOBIN. 12.2 g/dL (12.0-16.0); LYMPHOCYTES % 21.8 % (20.0-50.0); MEAN CORPUSCULAR HEMOGLOBIN 25.8 pg (28.0-32.0); MEAN CORPUSCULAR VOLUME 82.3 fL (81.0-99.0); MEAN PLATELET VOLUME 10.2 fl (7.4-10.4); MONOCYTES % 14.5 % (2.0-8.0); NEUTROPHILS % 61.8 % (40.0-76.0); PLATELET 158 x1000/uL (130-400); RED BLOOD CELL COUNT 4.74 mill/uL (4.2-5.4); RED CELL DISTRIBUTION WIDTH 21.7 % (11.6-14.6)
[2020-05-26 07:45] LABS: CHLORIDE 102 mEq/L (98-107)
[2020-05-26] MEDS: PANTOPRAZOLE SODIUM 40 MG/VIAL IV SCH (09:55)
[2020-05-26] MEDS: FUROSEMIDE 40MG/4ML VIAL IVP SCH (09:55)
[2020-05-26] MEDS: ENOXAPARIN 100MG/ML SYR SUBCUT SCH ×2 (09:56→22:03)
== END 2020-05-26 22:15 | DRG 207 ==
LOC: ER 11:44 → MICUSO 15:26 → EDBEDREQ 15:34 → CVICU 05-19 18:40 → 3WST 05-24 17:50
PROVIDERS: ADMIT Internal Medicine; ATTEND Internal Medicine
PROC: 5A1955Z Respiratory Ventilation, Greater than 96 Consecutive Hours (ICD-10-PCS; principal; 2020-05-17)
PROC: 0BH18EZ Insertion of Endotracheal Airway into Trachea, Via Natural or Artificial Opening Endoscopic (ICD-10-PCS; 2020-05-17)
PROC: 5A09357 Assistance with Respiratory Ventilation, Less than 24 Consecutive Hours, Continuous Positive Airway Pressure (ICD-10-PCS; 2020-05-17)
PROC: 05HM33Z Insertion of Infusion Device into Right Internal Jugular Vein, Percutaneous Approach (ICD-10-PCS; 2020-05-17)
PROC: B543ZZA Ultrasonography of Right Jugular Veins, Guidance (ICD-10-PCS; 2020-05-17)
PROC: 5A09357 Assistance with Respiratory Ventilation, Less than 24 Consecutive Hours, Continuous Positive Airway Pressure (ICD-10-PCS; 2020-05-23)
PROC: 5A09357 Assistance with Respiratory Ventilation, Less than 24 Consecutive Hours, Continuous Positive Airway Pressure (ICD-10-PCS; 2020-05-25)
DX: J96.22 Acute and chronic respiratory failure with hypercapnia (principal); R57.0 Cardiogenic shock; J18.9 Pneumonia, unspecified organism; I50.31 Acute diastolic (congestive) heart failure; E44.1 Mild protein-calorie malnutrition; J44.1 Chronic obstructive pulmonary disease with (acute) exacerbation; I24.8 Other forms of acute ischemic heart disease; G93.40 Encephalopathy, unspecified; D61.818 Other pancytopenia; J44.0 Chronic obstructive pulmonary disease with (acute) lower respiratory infection; E87.4 Mixed disorder of acid-base balance; I42.9 Cardiomyopathy, unspecified; I11.0 Hypertensive heart disease with heart failure; J96.21 Acute and chronic respiratory failure with hypoxia; I27.81 Cor pulmonale (chronic); I48.0 Paroxysmal atrial fibrillation; E66.01 Morbid (severe) obesity due to excess calories; Z20.828 Contact with and (suspected) exposure to other viral communicable diseases; E11.9 Type 2 diabetes mellitus without complications; E78.5 Hyperlipidemia, unspecified; F41.0 Panic disorder [episodic paroxysmal anxiety]; I25.10 Atherosclerotic heart disease of native coronary artery without angina pectoris; I27.21 Secondary pulmonary arterial hypertension; I44.7 Left bundle-branch block, unspecified; I87.2 Venous insufficiency (chronic) (peripheral); L30.9 Dermatitis, unspecified; Z79.01 Long term (current) use of anticoagulants; Z79.51 Long term (current) use of inhaled steroids; Z99.81 Dependence on supplemental oxygen; Z95.810 Presence of automatic (implantable) cardiac defibrillator; Z79.899 Other long term (current) drug therapy; Z68.38 Body mass index [BMI] 38.0-38.9, adult
CPT/HCPCS: 36415; 36600; 71045; 80048; 80053; 81003; 82375; 82805; 82962; 83605; 83735; 83880; 84100; 84145; 84478; 84484; 85025; 87070; 87635; 92610; 93005; 94002; 94660; 96365; 97110; 97162; 97166; 97530; 97535; 99291; A6261; C9113; J0282; J0456; J0696; J1644; J1650; J1940; J2060; J2250; J2270; J2704; J2920; J3010; J3490; J7050; J7060

== ENCOUNTER 2021-08-13 14:24 | Inpatient (IN) | payer MEDICARE, MEDICAID ==
[~2021-08-13] VITALS: Ht 167.6 cm; Wt 89.8 kg
[~2021-08-13 14:24] MED LIST changes: +AM250 GT; +AMIN30LI27 GT; +AMLO10TA4 GT; +APIX2.5T MT; -APIX5TAB MT; -APIX5TAB PO; +ASCO500C18 GT; +BISA10SU62 GT; +COR3 PO; +DOCU50LI25 GT; +FE300LUD GT; +IPRA3AMP9 HHN; +LACO150T2 GT; +LEVE250T2 GT; +LOSA50TA41 PO; -MED4 MT; +METF500S7 GT; +METO5SOL19 GT; +MULT-230 GT; +ONDA4TAB5 GT; +PANT40TA51 GT; +PERA8TAB GT; +POLY17PO43 GT; +PRED1TAB GT; +QUET50TA PO; +SUCR1TAB GT; +TOPUD GT; +TRAZ-251 GT; +VANC250C12 GT; +[UNRECOGNIZED DRUG - CODE] SUBCUT
[2021-08-13 15:46] LABS: BASOPHILS % 0.5 % (0.0-2.0); EOSINOPHILS % 2.6 % (0.0-5.0); HEMATOCRIT. 31.5 % (36.0-48.0); HEMOGLOBIN. 10.3 g/dL (12.0-16.0); LYMPHOCYTES % 14.5 % (20.0-50.0); MEAN CORPUSCULAR HEMOGLOBIN 30.3 pg (28.0-32.0); MEAN CORPUSCULAR VOLUME 92.3 fL (81.0-99.0); MONOCYTES % 11.1 % (2.0-8.0); NEUTROPHILS % 71.3 % (40.0-76.0); PLATELET 259 x1000/uL (130-400); RED BLOOD CELL COUNT 3.41 mill/uL (4.2-5.4); RED CELL DISTRIBUTION WIDTH 15.3 % (11.6-14.6)
[2021-08-13 16:04] LABS: CHLORIDE 96 mEq/L (98-107)
[2021-08-13] MEDS ORDERED: SODIUM CHLORIDE 0.9% 1,000 ML IV ONE (16:45)
[2021-08-13] MEDS ORDERED: SODIUM CHLORIDE 0.9% 1000ML BAG (SEPSIS BOLUS) IV ONE (17:15)
[2021-08-13] MEDS ORDERED: PIPERACILLIN/TAZOBACTAM 3.375GM/50ML PREMIX IV ONE (17:15)
[2021-08-13] MEDS ORDERED: PIPERACILLIN/TAZ 3.375G PREMIX 50 ML IV NR (17:30)
[2021-08-13 18:41] LABS: BG BASE EXCESS 9.9 mmol/L (-2.0-2.0); BG CARBOXYHEMOGLOBIN 0.3 % (0.5-1.5); BG DEOXYHEMOGLOBIN 1.1 % (0.0-5.0); BG FRACTION INSPIRED OXYGEN 70; BG HCO3 ACT 34.6 mmol/L (22.0-26.0); BG METHEMOGLOBIN 0.2 % (0.0-1.5); BG OXYGEN SATURATION 98.9 % (92.0-98.5); BG OXYHEMOGLOBIN 98.4 % (94.0-97.0); BG PH 7.476 (7.350-7.450); BG PO2 145.9 mmHg (75.0-100.0); BG SAMPLE SITE RIGHT RADIAL; BG TOTAL HEMOGLOBIN 10.1 g/dL (12.0-18.0); BG VENT MODE VENT - AC
[2021-08-14] VITALS (10 sets, daily range): BP systolic 97–152; BP diastolic 62–84
[2021-08-14] MEDS ORDERED: IPRATROPIUM/ALBUTEROL 0.5-3(2.5)MG/3ML NEB HHN PRN (02:15)
[2021-08-14] MEDS ORDERED: CLONIDINE 0.1MG TABLET PO PRN (02:15)
[2021-08-14] MEDS ORDERED: GUAIFENESIN 200MG/10ML SUGAR FREE UDC PO PRN (02:15)
[2021-08-14] MEDS ORDERED: ACETAMINOPHEN 650MG/20.3ML UDC GT PRN (02:15)
[2021-08-14] MEDS ORDERED: ONDANSETRON HCL 4MG/2ML INJ IV PRN (02:15)
[2021-08-14] MEDS: PIPERACILLIN/TAZOBACTAM 3.375 G in DEXTROSE 5% WATER 50 ML IV SCH ×3 (03:35→20:24)
[2021-08-14] MEDS ORDERED: PNEUMOCOCCAL 23-VAL P-SAC VAC 0.5 ML IM ONE (06:00)
[2021-08-14 08:27] LABS: BG CARBOXYHEMOGLOBIN 0.3 % (0.5-1.5); BG DEOXYHEMOGLOBIN 1.1 % (0.0-5.0); BG FRACTION INSPIRED OXYGEN 70; BG HCO3 ACT 33.4 mmol/L (22.0-26.0); BG METHEMOGLOBIN 0.2 % (0.0-1.5); BG OXYGEN SATURATION 98.9 % (92.0-98.5); BG OXYHEMOGLOBIN 98.4 % (94.0-97.0); BG PCO2 51.2 mmHg (35.0-45.0); BG PH 7.432 (7.350-7.450); BG PO2 163.7 mmHg (75.0-100.0); BG SAMPLE SITE RIGHT RADIAL; BG TOTAL HEMOGLOBIN 9.9 g/dL (12.0-18.0); BG VENT MODE VENT - AC
[2021-08-14] MEDS: ENOXAPARIN 40MG/0.4ML SYR SUBCUT SCH (08:43)
[2021-08-14] MEDS ORDERED: LEVETIRACETAM 500MG PREMIX 100 ML IV SCH (09:00)
[2021-08-14] MEDS ORDERED: LEVETIRACETAM 500 MG in SODIUM CHLORIDE 0.9% 100 ML IV SCH (10:30)
[2021-08-14 10:35] LABS: BASOPHILS % 0.5 % (0.0-2.0); EOSINOPHILS % 2.8 % (0.0-5.0); HEMATOCRIT. 31.1 % (36.0-48.0); HEMOGLOBIN. 10.2 g/dL (12.0-16.0); LYMPHOCYTES % 12.7 % (20.0-50.0); MEAN CORPUSCULAR HEMOGLOBIN 30.1 pg (28.0-32.0); MEAN CORPUSCULAR VOLUME 92.1 fL (81.0-99.0); MEAN PLATELET VOLUME 9.9 fl (7.4-10.4); MONOCYTES % 11.1 % (2.0-8.0); NEUTROPHILS % 72.9 % (40.0-76.0); PLATELET 272 x1000/uL (130-400); RED BLOOD CELL COUNT 3.38 mill/uL (4.2-5.4); RED CELL DISTRIBUTION WIDTH 15.2 % (11.6-14.6)
[2021-08-14 10:53] LABS: CHLORIDE 101 mEq/L (98-107)
[2021-08-14] MEDS: LACOSAMIDE 100 MG TABLET GT SCH ×2 (12:30→20:17)
[2021-08-14] MEDS: VANCOMYCIN 1GM PMX (XELLIA) 200 ML IV SCH (19:41)
[2021-08-14] MEDS: FAMOTIDINE 20MG TABLET GT SCH (20:04)
[2021-08-14] MEDS: LEVETIRACETAM 500MG/5ML CUP GT SCH (20:04)
[2021-08-14] MEDS ORDERED: LEVETIRACETAM 1000MG PREMIX 100 ML IV SCH (21:00)
[2021-08-15] VITALS (12 sets, daily range): BP systolic 99–128; BP diastolic 62–86
[2021-08-15] MEDS: PIPERACILLIN/TAZOBACTAM 3.375 G in DEXTROSE 5% WATER 50 ML IV SCH ×3 (05:01→22:27)
[2021-08-15 06:41] LABS: BASOPHILS % 0.4 % (0.0-2.0); EOSINOPHILS % 1.8 % (0.0-5.0); HEMATOCRIT. 31.8 % (36.0-48.0); HEMOGLOBIN. 10.3 g/dL (12.0-16.0); LYMPHOCYTES % 10.1 % (20.0-50.0); MEAN CORPUSCULAR HEMOGLOBIN 29.9 pg (28.0-32.0); MEAN PLATELET VOLUME 9.5 fl (7.4-10.4); MONOCYTES % 11.1 % (2.0-8.0); NEUTROPHILS % 76.6 % (40.0-76.0); PLATELET 292 x1000/uL (130-400); RED BLOOD CELL COUNT 3.46 mill/uL (4.2-5.4); RED CELL DISTRIBUTION WIDTH 15.4 % (11.6-14.6)
[2021-08-15 06:42] LABS: CHLORIDE 102 mEq/L (98-107)
[2021-08-15] MEDS: ENOXAPARIN 40MG/0.4ML SYR SUBCUT SCH (08:24)
[2021-08-15] MEDS: LACOSAMIDE 100 MG TABLET GT SCH ×2 (08:25→22:27)
[2021-08-15] MEDS: FAMOTIDINE 20MG TABLET GT SCH ×2 (08:25→20:13)
[2021-08-15] MEDS: PREDNISONE 1MG TABLET PEG SCH (08:25)
[2021-08-15] MEDS: LEVETIRACETAM 500MG/5ML CUP GT SCH ×2 (08:25→20:14)
[2021-08-15 10:30] LABS: BG BASE EXCESS 6.9 mmol/L (-2.0-2.0); BG CARBOXYHEMOGLOBIN 0.3 % (0.5-1.5); BG DEOXYHEMOGLOBIN 3.4 % (0.0-5.0); BG FRACTION INSPIRED OXYGEN 40; BG METHEMOGLOBIN 0.2 % (0.0-1.5); BG OXYGEN SATURATION 96.6 % (92.0-98.5); BG OXYHEMOGLOBIN 96.1 % (94.0-97.0); BG PCO2 48.1 mmHg (35.0-45.0); BG PH 7.441 (7.350-7.450); BG PO2 88.7 mmHg (75.0-100.0); BG SAMPLE SITE RIGHT RADIAL; BG TOTAL HEMOGLOBIN 10.9 g/dL (12.0-18.0); BG TOTAL RESPIRATORY RATE 12 b/min; BG VENT MODE VENT - AC
[2021-08-15 13:23] LABS: CREATINE KINASE 35 IU/L (26-192)
[2021-08-15] MEDS: VANCOMYCIN 1GM PMX (XELLIA) 200 ML IV SCH (14:14)
[2021-08-15 20:46] LABS: CLARITY URINE CLOUDY (CLEAR); COLOR URINE YELLOW (YELLOW); KETONES URINE NEGATIVE (NEGATIVE); LEUKOCYTE ESTERASE URINE 2+ (NEGATIVE); NITRITE URINE NEGATIVE (NEGATIVE); OCCULT BLOOD URINE 2+ (NEGATIVE); PROTEIN URINE TRACE (NEGATIVE); SPECIFIC GRAVITY URINE 1.025 (1.005-1.030)
[2021-08-16] VITALS (12 sets, daily range): BP systolic 102–132; BP diastolic 53–95
[2021-08-16] MEDS: PIPERACILLIN/TAZOBACTAM 3.375 G in DEXTROSE 5% WATER 50 ML IV SCH ×2 (05:12→15:20)
[2021-08-16 06:28] LABS: BASOPHILS % 0.7 % (0.0-2.0); EOSINOPHILS % 3.6 % (0.0-5.0); HEMATOCRIT. 29.4 % (36.0-48.0); HEMOGLOBIN. 9.7 g/dL (12.0-16.0); LYMPHOCYTES % 12.5 % (20.0-50.0); MEAN CORPUSCULAR HEMOGLOBIN 30.4 pg (28.0-32.0); MEAN CORPUSCULAR VOLUME 91.6 fL (81.0-99.0); MEAN PLATELET VOLUME 9.8 fl (7.4-10.4); MONOCYTES % 12.3 % (2.0-8.0); NEUTROPHILS % 70.9 % (40.0-76.0); PLATELET 270 x1000/uL (130-400); RED BLOOD CELL COUNT 3.21 mill/uL (4.2-5.4); RED CELL DISTRIBUTION WIDTH 15.6 % (11.6-14.6)
[2021-08-16 07:06] LABS: CHLORIDE 101 mEq/L (98-107)
[2021-08-16] MEDS: LEVETIRACETAM 500MG/5ML CUP GT SCH ×2 (08:53→20:32)
[2021-08-16] MEDS: FAMOTIDINE 20MG TABLET GT SCH ×2 (08:53→20:32)
[2021-08-16] MEDS: ENOXAPARIN 40MG/0.4ML SYR SUBCUT SCH (08:54)
[2021-08-16] MEDS: PREDNISONE 1MG TABLET PEG SCH (08:54)
[2021-08-16] MEDS: LACOSAMIDE 100 MG TABLET GT SCH ×2 (08:54→20:33)
[2021-08-16] MEDS: VANCOMYCIN 1GM PMX (XELLIA) 200 ML IV SCH (08:57)
[2021-08-16] MEDS: CARVEDILOL 3.125 MG TABLET PO SCH ×2 (09:15→20:32)
[2021-08-16] MEDS ORDERED: KCL 20MEQ/100ML PREMIX 100 ML IV NR (10:00)
[2021-08-16] MEDS: FUROSEMIDE 40MG/4ML VIAL IVP SCH (10:01)
[2021-08-16] MEDS: DILTIAZEM HCL 30MG TABLET PO SCH ×2 (11:10→17:55)
[2021-08-16] MEDS: AMPICILLIN 1,000 MG in SODIUM CHLORIDE 0.9% 50 ML IV SCH (23:58)
[2021-08-17] VITALS (15 sets, daily range): BP systolic 92–131; BP diastolic 55–88
[2021-08-17] MEDS: DILTIAZEM HCL 30MG TABLET PO SCH ×6 (00:18→23:19)
[2021-08-17] MEDS: AMPICILLIN 1,000 MG in SODIUM CHLORIDE 0.9% 50 ML IV SCH ×4 (05:39→23:19)
[2021-08-17 06:44] LABS: BASOPHILS % 0.5 % (0.0-2.0); HEMATOCRIT. 29.4 % (36.0-48.0); HEMOGLOBIN. 9.8 g/dL (12.0-16.0); LYMPHOCYTES % 13.6 % (20.0-50.0); MEAN CORPUSCULAR HEMOGLOBIN 30.6 pg (28.0-32.0); MEAN CORPUSCULAR VOLUME 91.9 fL (81.0-99.0); MEAN PLATELET VOLUME 9.5 fl (7.4-10.4); MONOCYTES % 11.3 % (2.0-8.0); NEUTROPHILS % 68.6 % (40.0-76.0); PLATELET 234 x1000/uL (130-400); RED CELL DISTRIBUTION WIDTH 15.3 % (11.6-14.6)
[2021-08-17 06:57] LABS: CHLORIDE 101 mEq/L (98-107)
[2021-08-17] MEDS: ENOXAPARIN 40MG/0.4ML SYR SUBCUT SCH (08:24)
[2021-08-17] MEDS: LEVETIRACETAM 500MG/5ML CUP GT SCH ×2 (08:24→20:39)
[2021-08-17] MEDS: LACOSAMIDE 100 MG TABLET GT SCH ×2 (08:24→20:40)
[2021-08-17] MEDS: PREDNISONE 1MG TABLET PEG SCH (08:25)
[2021-08-17] MEDS: FAMOTIDINE 20MG TABLET GT SCH ×2 (08:25→20:40)
[2021-08-17] MEDS: FUROSEMIDE 40MG/4ML VIAL IVP SCH ×2 (08:25→17:50)
[2021-08-17] MEDS ORDERED: POTASSIUM CHLORIDE 20MEQ TABLET SR PO NR (09:00)
[2021-08-17] MEDS: CARVEDILOL 3.125 MG TABLET PO SCH ×2 (09:05→20:40)
[2021-08-17] MEDS: IPRATROPIUM BROMIDE (0.02%) 0.5MG/2.5ML NEB HHN PRN (21:04)
[2021-08-18] VITALS (12 sets, daily range): BP systolic 97–121; BP diastolic 47–68
[2021-08-18] MEDS: AMPICILLIN 1,000 MG in SODIUM CHLORIDE 0.9% 50 ML IV SCH ×3 (05:11→17:02)
[2021-08-18] MEDS: DILTIAZEM HCL 30MG TABLET PO SCH ×3 (05:11→18:00)
[2021-08-18 07:38] LABS: BASOPHILS % 0.4 % (0.0-2.0); EOSINOPHILS % 5.6 % (0.0-5.0); HEMATOCRIT. 29.1 % (36.0-48.0); HEMOGLOBIN. 9.8 g/dL (12.0-16.0); LYMPHOCYTES % 18.4 % (20.0-50.0); MEAN CORPUSCULAR HEMOGLOBIN 30.5 pg (28.0-32.0); MEAN CORPUSCULAR VOLUME 91.1 fL (81.0-99.0); MEAN PLATELET VOLUME 9.5 fl (7.4-10.4); MONOCYTES % 13.7 % (2.0-8.0); NEUTROPHILS % 61.9 % (40.0-76.0); PLATELET 254 x1000/uL (130-400); RED CELL DISTRIBUTION WIDTH 15.3 % (11.6-14.6)
[2021-08-18] MEDS: IPRATROPIUM BROMIDE (0.02%) 0.5MG/2.5ML NEB HHN PRN ×3 (07:46→19:47)
[2021-08-18 07:48] LABS: CHLORIDE 101 mEq/L (98-107)
[2021-08-18] MEDS: FUROSEMIDE 40MG/4ML VIAL IVP SCH ×2 (08:27→17:01)
[2021-08-18] MEDS: FAMOTIDINE 20MG TABLET GT SCH ×2 (08:27→20:15)
[2021-08-18] MEDS: LEVETIRACETAM 500MG/5ML CUP GT SCH ×2 (08:27→20:16)
[2021-08-18] MEDS: ENOXAPARIN 40MG/0.4ML SYR SUBCUT SCH (08:27)
[2021-08-18] MEDS: PREDNISONE 1MG TABLET PEG SCH (08:27)
[2021-08-18] MEDS: LACOSAMIDE 100 MG TABLET GT SCH ×2 (08:27→20:15)
[2021-08-18] MEDS: CARVEDILOL 3.125 MG TABLET PO SCH ×2 (08:29→20:15)
[2021-08-18] MEDS: APIXABAN 5 MG TABLET PO SCH (17:01)
[2021-08-19] VITALS (12 sets, daily range): BP systolic 83–131; BP diastolic 52–77
[2021-08-19] MEDS: AMPICILLIN 1,000 MG in SODIUM CHLORIDE 0.9% 50 ML IV SCH ×5 (00:29→23:31)
[2021-08-19] MEDS: DILTIAZEM HCL 30MG TABLET PO SCH ×5 (05:02→23:31)
[2021-08-19 07:47] LABS: HEMATOCRIT. 32.6 % (36.0-48.0); HEMOGLOBIN. 10.5 g/dL (12.0-16.0); MEAN CORPUSCULAR HEMOGLOBIN 29.5 pg (28.0-32.0); MEAN CORPUSCULAR VOLUME 92.2 fL (81.0-99.0); MEAN PLATELET VOLUME 9.9 fl (7.4-10.4); PLATELET 295 x1000/uL (130-400); RED BLOOD CELL COUNT 3.54 mill/uL (4.2-5.4); RED CELL DISTRIBUTION WIDTH 15.7 % (11.6-14.6)
[2021-08-19 07:57] LABS: CHLORIDE 100 mEq/L (98-107)
[2021-08-19] MEDS: LEVETIRACETAM 500MG/5ML CUP GT SCH ×2 (08:57→21:03)
[2021-08-19] MEDS: FUROSEMIDE 40MG/4ML VIAL IVP SCH ×2 (08:57→17:13)
[2021-08-19] MEDS: CARVEDILOL 3.125 MG TABLET PO SCH ×2 (08:59→21:00)
[2021-08-19] MEDS: PREDNISONE 1MG TABLET PEG SCH (09:01)
[2021-08-19] MEDS: APIXABAN 5 MG TABLET PO SCH ×2 (09:01→17:15)
[2021-08-19] MEDS: FAMOTIDINE 20MG TABLET GT SCH ×2 (09:01→21:03)
[2021-08-19] MEDS: LACOSAMIDE 100 MG TABLET GT SCH ×2 (09:32→21:03)
[2021-08-19 12:34] LABS: BG BASE EXCESS 11.8 mmol/L (-2.0-2.0); BG CARBOXYHEMOGLOBIN 0.3 % (0.5-1.5); BG DEOXYHEMOGLOBIN 3.8 % (0.0-5.0); BG FRACTION INSPIRED OXYGEN 40; BG HCO3 ACT 37.7 mmol/L (22.0-26.0); BG METHEMOGLOBIN 0.2 % (0.0-1.5); BG OXYGEN SATURATION 96.2 % (92.0-98.5); BG OXYHEMOGLOBIN 95.7 % (94.0-97.0); BG PCO2 55.9 mmHg (35.0-45.0); BG PH 7.447 (7.350-7.450); BG PO2 83.6 mmHg (75.0-100.0); BG SAMPLE SITE RIGHT RADIAL; BG TOTAL HEMOGLOBIN 11.5 g/dL (12.0-18.0); BG VENT MODE VENT - AC
[2021-08-19] MEDS: MIDODRINE HCL 5MG TABLET PEG SCH ×2 (13:23→21:29)
[2021-08-19 15:22] LABS: PLATELET ESTIMATE NORMAL
[2021-08-20] VITALS (12 sets, daily range): BP systolic 84–138; BP diastolic 51–78
[2021-08-20] MEDS: DILTIAZEM HCL 30MG TABLET PO SCH ×3 (06:00→17:07)
[2021-08-20] MEDS: AMPICILLIN 1,000 MG in SODIUM CHLORIDE 0.9% 50 ML IV SCH ×3 (06:33→17:07)
[2021-08-20] MEDS: MIDODRINE HCL 5MG TABLET PEG SCH ×3 (06:33→21:11)
[2021-08-20] MEDS: FUROSEMIDE 40MG/4ML VIAL IVP SCH ×2 (08:23→17:07)
[2021-08-20] MEDS: LACOSAMIDE 100 MG TABLET GT SCH ×2 (08:23→21:11)
[2021-08-20] MEDS: PREDNISONE 1MG TABLET PEG SCH (08:23)
[2021-08-20] MEDS: LEVETIRACETAM 500MG/5ML CUP GT SCH ×2 (08:23→21:10)
[2021-08-20] MEDS: FAMOTIDINE 20MG TABLET GT SCH ×2 (08:23→21:11)
[2021-08-20] MEDS: APIXABAN 5 MG TABLET PO SCH ×2 (08:24→17:07)
[2021-08-20] MEDS: CARVEDILOL 3.125 MG TABLET PO SCH ×2 (08:24→21:11)
[2021-08-20] MEDS: ASCORBIC ACID 500 MG TABLET PEG SCH (11:52)
[2021-08-20] MEDS: ZINC SULFATE 220 MG ( 50 ) CAPSULE PEG SCH (11:52)
[2021-08-20 17:28] LABS: BASOPHILS % 0.7 % (0.0-2.0); HEMATOCRIT. 32.9 % (36.0-48.0); HEMOGLOBIN. 10.6 g/dL (12.0-16.0); LYMPHOCYTES % 13.2 % (20.0-50.0); MEAN CORPUSCULAR HEMOGLOBIN 30.1 pg (28.0-32.0); MEAN CORPUSCULAR VOLUME 93.4 fL (81.0-99.0); MEAN PLATELET VOLUME 9.7 fl (7.4-10.4); NEUTROPHILS % 70.1 % (40.0-76.0); PLATELET 264 x1000/uL (130-400); RED BLOOD CELL COUNT 3.53 mill/uL (4.2-5.4); RED CELL DISTRIBUTION WIDTH 15.8 % (11.6-14.6)
[2021-08-20 17:47] LABS: CHLORIDE 100 mEq/L (98-107)
[2021-08-21] VITALS (12 sets, daily range): BP systolic 97–146; BP diastolic 40–73
[2021-08-21] MEDS: AMPICILLIN 1,000 MG in SODIUM CHLORIDE 0.9% 50 ML IV SCH ×5 (00:15→23:50)
[2021-08-21] MEDS: DILTIAZEM HCL 30MG TABLET PO SCH ×5 (00:15→23:51)
[2021-08-21] MEDS: MIDODRINE HCL 5MG TABLET PEG SCH ×3 (06:00→22:47)
[2021-08-21] MEDS: CARVEDILOL 3.125 MG TABLET PO SCH ×2 (09:00→20:38)
[2021-08-21] MEDS: FUROSEMIDE 40MG/4ML VIAL IVP SCH ×2 (09:33→18:06)
[2021-08-21] MEDS: LEVETIRACETAM 500MG/5ML CUP GT SCH ×2 (09:33→20:37)
[2021-08-21] MEDS: PREDNISONE 1MG TABLET PEG SCH (09:34)
[2021-08-21] MEDS: ZINC SULFATE 220 MG ( 50 ) CAPSULE PEG SCH (09:34)
[2021-08-21] MEDS: LACOSAMIDE 100 MG TABLET GT SCH ×2 (09:34→20:39)
[2021-08-21] MEDS: ASCORBIC ACID 500 MG TABLET PEG SCH (09:34)
[2021-08-21] MEDS: APIXABAN 5 MG TABLET PO SCH ×2 (09:34→18:07)
[2021-08-21] MEDS: FAMOTIDINE 20MG TABLET GT SCH ×2 (09:34→20:37)
[2021-08-22] VITALS (12 sets, daily range): BP systolic 87–150; BP diastolic 45–87
[2021-08-22] MEDS: AMPICILLIN 1,000 MG in SODIUM CHLORIDE 0.9% 50 ML IV SCH ×4 (04:47→23:35)
[2021-08-22] MEDS: MIDODRINE HCL 5MG TABLET PEG SCH ×3 (04:47→21:06)
[2021-08-22] MEDS: DILTIAZEM HCL 30MG TABLET PO SCH ×4 (06:00→23:36)
[2021-08-22] MEDS: LEVETIRACETAM 500MG/5ML CUP GT SCH ×2 (08:17→21:09)
[2021-08-22] MEDS: ASCORBIC ACID 500 MG TABLET PEG SCH (08:18)
[2021-08-22] MEDS: ZINC SULFATE 220 MG ( 50 ) CAPSULE PEG SCH (08:18)
[2021-08-22] MEDS: APIXABAN 5 MG TABLET PO SCH ×2 (08:18→18:27)
[2021-08-22] MEDS: FUROSEMIDE 40MG/4ML VIAL IVP SCH ×2 (08:18→18:27)
[2021-08-22] MEDS: FAMOTIDINE 20MG TABLET GT SCH ×2 (08:18→21:06)
[2021-08-22] MEDS: PREDNISONE 1MG TABLET PEG SCH (08:18)
[2021-08-22] MEDS: CARVEDILOL 3.125 MG TABLET PO SCH ×2 (08:21→21:06)
[2021-08-22] MEDS: LACOSAMIDE 100 MG TABLET GT SCH ×2 (10:26→21:06)
[2021-08-23] VITALS (13 sets, daily range): BP systolic 111–151; BP diastolic 49–79
[2021-08-23] MEDS: DILTIAZEM HCL 30MG TABLET PO SCH ×4 (05:11→23:02)
[2021-08-23] MEDS: AMPICILLIN 1,000 MG in SODIUM CHLORIDE 0.9% 50 ML IV SCH ×4 (05:11→23:16)
[2021-08-23] MEDS: MIDODRINE HCL 5MG TABLET PEG SCH ×3 (05:11→21:39)
[2021-08-23] MEDS: CARVEDILOL 3.125 MG TABLET PO SCH ×2 (08:51→21:00)
[2021-08-23] MEDS: ASCORBIC ACID 500 MG TABLET PEG SCH (08:51)
[2021-08-23] MEDS: PREDNISONE 1MG TABLET PEG SCH (08:51)
[2021-08-23] MEDS: FUROSEMIDE 40MG/4ML VIAL IVP SCH ×2 (08:51→17:40)
[2021-08-23] MEDS: LACOSAMIDE 100 MG TABLET GT SCH ×2 (08:51→21:40)
[2021-08-23] MEDS: ZINC SULFATE 220 MG ( 50 ) CAPSULE PEG SCH (08:51)
[2021-08-23] MEDS: LEVETIRACETAM 500MG/5ML CUP GT SCH ×2 (08:51→21:41)
[2021-08-23] MEDS: APIXABAN 5 MG TABLET PO SCH ×2 (08:51→17:40)
[2021-08-23 18:50] LABS: BASOPHILS % 0.6 % (0.0-2.0); EOSINOPHILS % 5.4 % (0.0-5.0); MEAN CORPUSCULAR HEMOGLOBIN 29.9 pg (28.0-32.0); MEAN CORPUSCULAR VOLUME 92.7 fL (81.0-99.0); MONOCYTES % 10.4 % (2.0-8.0); NEUTROPHILS % 70.6 % (40.0-76.0); PLATELET 293 x1000/uL (130-400); RED BLOOD CELL COUNT 3.35 mill/uL (4.2-5.4); RED CELL DISTRIBUTION WIDTH 15.7 % (11.6-14.6)
[2021-08-23 19:20] LABS: CHLORIDE 101 mEq/L (98-107)
[2021-08-23] MEDS: LACTULOSE 20G/30ML UDC GT SCH (21:39)
[2021-08-23] MEDS: FAMOTIDINE 20MG TABLET GT SCH (21:40)
[2021-08-24] VITALS (12 sets, daily range): BP systolic 103–147; BP diastolic 53–74
[2021-08-24] MEDS: AMPICILLIN 1,000 MG in SODIUM CHLORIDE 0.9% 50 ML IV SCH ×3 (05:21→17:34)
[2021-08-24] MEDS: MIDODRINE HCL 5MG TABLET PEG SCH ×3 (05:21→21:07)
[2021-08-24] MEDS: LACTULOSE 20G/30ML UDC GT SCH ×3 (05:21→21:06)
[2021-08-24] MEDS: DILTIAZEM HCL 30MG TABLET PO SCH ×4 (06:00→17:34)
[2021-08-24] MEDS: PREDNISONE 1MG TABLET PEG SCH (09:10)
[2021-08-24] MEDS: FUROSEMIDE 40MG/4ML VIAL IVP SCH ×3 (09:10→17:34)
[2021-08-24] MEDS: LACOSAMIDE 100 MG TABLET GT SCH ×2 (09:10→21:06)
[2021-08-24] MEDS: LEVETIRACETAM 500MG/5ML CUP GT SCH ×2 (09:10→21:05)
[2021-08-24] MEDS: APIXABAN 5 MG TABLET PO SCH ×2 (09:11→17:34)
[2021-08-24] MEDS: ASCORBIC ACID 500 MG TABLET PEG SCH (09:11)
[2021-08-24] MEDS: ZINC SULFATE 220 MG ( 50 ) CAPSULE PEG SCH (09:11)
[2021-08-24] MEDS: CARVEDILOL 3.125 MG TABLET PO SCH ×2 (09:11→21:06)
[2021-08-24] MEDS: GUAIFENESIN 200MG/10ML SUGAR FREE UDC PO SCH (17:38)
[2021-08-24] MEDS: FAMOTIDINE 20MG TABLET GT SCH (21:07)
[2021-08-25] VITALS (11 sets, daily range): BP systolic 105–133; BP diastolic 45–67
[2021-08-25] MEDS: DILTIAZEM HCL 30MG TABLET PO SCH ×2 (05:52)
[2021-08-25] MEDS: GUAIFENESIN 200MG/10ML SUGAR FREE UDC PO SCH ×4 (05:53→18:00)
[2021-08-25] MEDS: LACTULOSE 20G/30ML UDC GT SCH ×3 (05:53→21:28)
[2021-08-25] MEDS: MIDODRINE HCL 5MG TABLET PEG SCH ×3 (05:53→21:28)
[2021-08-25] MEDS: LEVETIRACETAM 500MG/5ML CUP GT SCH ×2 (08:28→21:28)
[2021-08-25] MEDS: ZINC SULFATE 220 MG ( 50 ) CAPSULE PEG SCH (08:28)
[2021-08-25] MEDS: FUROSEMIDE 40MG/4ML VIAL IVP SCH ×2 (08:28→17:59)
[2021-08-25] MEDS: ASCORBIC ACID 500 MG TABLET PEG SCH (08:28)
[2021-08-25] MEDS: LACOSAMIDE 100 MG TABLET GT SCH ×2 (08:28→21:28)
[2021-08-25] MEDS: CARVEDILOL 3.125 MG TABLET PO SCH (08:29)
[2021-08-25] MEDS: PREDNISONE 1MG TABLET PEG SCH (08:29)
[2021-08-25] MEDS: APIXABAN 5 MG TABLET PO SCH ×2 (08:29→18:00)
[2021-08-25] MEDS: FAMOTIDINE 20MG TABLET GT SCH (21:28)
[2021-08-26] VITALS (12 sets, daily range): BP systolic 101–136; BP diastolic 37–75
[2021-08-26] MEDS: GUAIFENESIN 200MG/10ML SUGAR FREE UDC PO SCH ×4 (00:26→18:37)
[2021-08-26] MEDS: LACTULOSE 20G/30ML UDC GT SCH ×3 (05:35→20:28)
[2021-08-26] MEDS: MIDODRINE HCL 5MG TABLET PEG SCH ×3 (05:36→20:29)
[2021-08-26 06:23] LABS: CHLORIDE 101 mEq/L (98-107)
[2021-08-26 06:56] LABS: BASOPHILS % 0.7 % (0.0-2.0); EOSINOPHILS % 4.8 % (0.0-5.0); HEMOGLOBIN. 11.5 g/dL (12.0-16.0); LYMPHOCYTES % 13.1 % (20.0-50.0); MEAN CORPUSCULAR HEMOGLOBIN 30.3 pg (28.0-32.0); MEAN CORPUSCULAR VOLUME 92.2 fL (81.0-99.0); MEAN PLATELET VOLUME 9.5 fl (7.4-10.4); MONOCYTES % 9.2 % (2.0-8.0); NEUTROPHILS % 72.2 % (40.0-76.0); PLATELET 289 x1000/uL (130-400); RED CELL DISTRIBUTION WIDTH 15.9 % (11.6-14.6)
[2021-08-26] MEDS: LEVETIRACETAM 500MG/5ML CUP GT SCH ×2 (10:01→20:28)
[2021-08-26] MEDS: ZINC SULFATE 220 MG ( 50 ) CAPSULE PEG SCH (10:01)
[2021-08-26] MEDS: ASCORBIC ACID 500 MG TABLET PEG SCH (10:01)
[2021-08-26] MEDS: FUROSEMIDE 40MG/4ML VIAL IVP SCH ×2 (10:01→18:37)
[2021-08-26] MEDS: PREDNISONE 1MG TABLET PEG SCH (10:02)
[2021-08-26] MEDS: LACOSAMIDE 100 MG TABLET GT SCH ×2 (10:02→20:28)
[2021-08-26] MEDS: APIXABAN 5 MG TABLET PO SCH ×2 (10:03→18:37)
[2021-08-26] MEDS: FAMOTIDINE 20MG TABLET GT SCH (20:29)
[2021-08-27] VITALS: BP 131/64
[2021-08-27] MEDS: GUAIFENESIN 200MG/10ML SUGAR FREE UDC PO SCH ×2 (00:47→06:08)
[2021-08-27 02:00] VITALS: BP 121/62
[2021-08-27 04:00] VITALS: BP 127/71
[2021-08-27 05:44] VITALS: BP 125/65
[2021-08-27] MEDS: MIDODRINE HCL 5MG TABLET PEG SCH (06:08)
[2021-08-27 07:16] VITALS: BP 122/61
== END 2021-08-27 07:35 | DRG 720 ==
LOC: EDBD 14:24 → ER 14:24 → EDBD 19:48 → MICUSO 19:48 → EDUNIT# 19:48 → ENRESERV 20:29 → CANRESERV 20:34 → ENRESERV 20:34 → EDBEDREQSVC 21:10 → ENRESERV 22:44 → 5EST 08-14 01:23
PROVIDERS: ADMIT Family Medicine Adult Medicine; ATTEND Family Medicine Adult Medicine
PROC: 5A1955Z Respiratory Ventilation, Greater than 96 Consecutive Hours (ICD-10-PCS; principal; 2021-08-13)
DX: A41.81 Sepsis due to Enterococcus (principal); J96.21 Acute and chronic respiratory failure with hypoxia; J18.9 Pneumonia, unspecified organism; G93.40 Encephalopathy, unspecified; I13.0 Hypertensive heart and chronic kidney disease with heart failure and stage 1 through stage 4 chronic kidney disease, or unspecified chronic kidney disease; I42.9 Cardiomyopathy, unspecified; N17.9 Acute kidney failure, unspecified; Z99.11 Dependence on respirator [ventilator] status; Z93.0 Tracheostomy status; I48.92 Unspecified atrial flutter; Z66 Do not resuscitate; Z20.822 Contact with and (suspected) exposure to COVID-19; D64.9 Anemia, unspecified; E11.22 Type 2 diabetes mellitus with diabetic chronic kidney disease; J44.0 Chronic obstructive pulmonary disease with (acute) lower respiratory infection; G40.909 Epilepsy, unspecified, not intractable, without status epilepticus; I25.10 Atherosclerotic heart disease of native coronary artery without angina pectoris; I44.7 Left bundle-branch block, unspecified; N18.9 Chronic kidney disease, unspecified; R13.10 Dysphagia, unspecified; Z95.810 Presence of automatic (implantable) cardiac defibrillator; Z93.1 Gastrostomy status; Z93.3 Colostomy status; Z79.01 Long term (current) use of anticoagulants
CPT/HCPCS: 36415; 36600; 71045; 80048; 80076; 80202; 80339; 81003; 82040; 82140; 82375; 82550; 82805; 82962; 83605; 83735; 83880; 84134; 84145; 84484; 85025; 87015; 87045; 87070; 87077; 87102; 87186; 87426; 87427; 87449; 87493; 87804; 90732; 93005; 93306; 94002; 94003; 99291; A6261; J0290; J1650; J1940; J1953; J2405; J2543; J3370; J3480; J7030; J7060; J7512

== ENCOUNTER 2022-08-09 13:16 | Inpatient (IN) | payer MEDICARE, MEDICAID ==
[2022-08-09] VITALS (7 sets, daily range): BP systolic 70–134; BP diastolic 30–65
[~2022-08-09] VITALS: Ht 162.6 cm; Wt 78.5 kg
[~2022-08-09 13:16] MED LIST changes: +ACET160S GT; -ALBU18HF2 IH; -AM250 GT; -AMBR10TA3 PO; +AMBR5TAB3 GT; -AMLO10TA4 GT; -AMLO5TAB88 MT; +BO1 TP; +COLL30OI TP; -COR3 PO; -DOCU50LI25 GT; -FE300LUD GT; +FERR220S6 GT; -FLUT1DIS3 INH; -FURO80TA87 MT; +HYDR-4001 GT; -IPRA3AMP9 NEB; -LACO150T2 GT; +LANS30CA55 GT; -LOSA50TA41 PO; -METF500S7 GT; +METF500S9 GT; +MIDO5TAB4 GT; +NEOM1PAC6 TP; -P50 MT; -PANT40TA51 GT; -PRED1TAB GT; -QUET50TA PO; +SUCR1ORA15 GT; -SUCR1TAB GT; -TOPUD GT; -VANC250C12 GT; +ZINC113C10 TP; -[UNRECOGNIZED DRUG - CODE] SUBCUT
[2022-08-09] MEDS ORDERED: IPRATROPIUM BROMIDE (0.02%) 0.5MG/2.5ML NEB HHN STA (13:35)
[2022-08-09] MEDS ORDERED: ALBUTEROL (0.083%) 2.5MG/3ML NEB HHN STA (13:35)
[2022-08-09] MEDS ORDERED: PIPERACILLIN/TAZ 3.375G PREMIX 50 ML IV ONE (13:45)
[2022-08-09] MEDS ORDERED: VANCOMYCIN 1G PREMIX 200 ML IV ONE (13:45)
[2022-08-09 14:15] LABS: HEMATOCRIT. 23.8 % (36.0-48.0); HEMOGLOBIN. 7.8 g/dL (12.0-16.0); MEAN CORPUSCULAR HEMOGLOBIN 29.4 pg (28.0-32.0); MEAN CORPUSCULAR VOLUME 90.2 fL (81.0-99.0); MEAN PLATELET VOLUME 8.7 fl (7.4-10.4); PLATELET 175 x1000/uL (130-400); RED BLOOD CELL COUNT 2.64 mill/uL (4.2-5.4); RED CELL DISTRIBUTION WIDTH 19.3 % (11.6-14.6)
[2022-08-09] MEDS ORDERED: METRONIDAZOLE 500 MG PREMIX 100 ML IV ONE (14:15)
[2022-08-09 14:25] LABS: INR 1.1; PROTHROMBIN TIME 11.7 sec (9.6-11.0)
[2022-08-09 14:27] LABS: CHLORIDE 96 mEq/L (98-107)
[2022-08-09] MEDS ORDERED: ASPIRIN 300MG SUPP PR NR (14:45)
[2022-08-09 17:51] LABS: PLATELET ESTIMATE NORMAL
[2022-08-09 17:57] LABS: CLARITY URINE CLEAR (CLEAR); COLOR URINE YELLOW (YELLOW); KETONES URINE NEGATIVE (NEGATIVE); LEUKOCYTE ESTERASE URINE 1+ (NEGATIVE); NITRITE URINE NEGATIVE (NEGATIVE); OCCULT BLOOD URINE NEGATIVE (NEGATIVE); PROTEIN URINE 2+ (NEGATIVE); SPECIFIC GRAVITY URINE 1.016 (1.005-1.030); UROBILINOGEN URINE 0.2 E.U./dL (0.2-1.0)
[2022-08-09] MEDS ORDERED: SODIUM CHLORIDE 0.9% 250 ML IV ONE (18:45)
[2022-08-09] MEDS ORDERED: MAGNESIUM/ALUMINUM HYDROXIDE/SIMETHICONE 30ML UDC PO PRN (21:30)
[2022-08-09] MEDS ORDERED: CLONIDINE 0.1MG TABLET PO PRN (21:30)
[2022-08-09] MEDS ORDERED: CEFTRIAXONE 1 G PREMIX 50 ML IV SCH (21:30)
[2022-08-09] MEDS ORDERED: ONDANSETRON HCL 4MG/2ML INJ IV PRN (21:30)
[2022-08-09] MEDS ORDERED: DEXTROSE 50% WATER 50ML SYRINGE IV PRN ×2 (21:30)
[2022-08-09] MEDS ORDERED: ACETAMINOPHEN 325MG TABLET PO PRN (21:30)
[2022-08-09] MEDS ORDERED: NALOXONE HCL 0.4MG/ML VIAL IV PRN (22:00)
[2022-08-09 22:37] LABS: TOTAL IRON BINDING CAPACITY 137 ug/dL (250-450)
[2022-08-09] MEDS: SODIUM CHLORIDE 0.9% 1,000 ML IV SCH (22:50)
[2022-08-09] MEDS: HYDROCODONE/ACETAMINOPHEN 5/325MG TABLET PO PRN (22:51)
[2022-08-09] MEDS ORDERED: CEFTRIAXONE 1,000 MG in DEXTROSE 5% WATER 50 ML IV SCH (23:00)
[2022-08-09 23:02] LABS: FERRITIN 399 ng/mL (10-291)
[2022-08-09 23:12] LABS: FOLIC ACID (FOLATE) SERUM >20 ng/mL ng/mL (>5.38); VITAMIN B12 SERUM 1091 pg/mL (211-911)
[2022-08-09 23:39] LABS: HEMATOCRIT 23.6 % (36.0-48.0); HEMOGLOBIN 7.5 g/dL (12.0-16.0); MEAN CORPUSCULAR HEMOGLOBIN 28.9 pg (28.0-32.0); MEAN CORPUSCULAR VOLUME 90.2 fL (81.0-99.0); PLATELET 168 x1000/uL (130-400); RED BLOOD CELL COUNT 2.61 mill/uL (4.2-5.4); RED CELL DISTRIBUTION WIDTH 19.5 % (11.6-14.6)
[2022-08-10] VITALS (40 sets, daily range): BP systolic 93–166; BP diastolic 38–105
[2022-08-10 05:34] LABS: BASOPHILS % 0.3 % (0.0-2.0); EOSINOPHILS % 5.8 % (0.0-5.0); HEMATOCRIT. 25.4 % (36.0-48.0); HEMOGLOBIN. 8.3 g/dL (12.0-16.0); LYMPHOCYTES % 9.5 % (20.0-50.0); MEAN CORPUSCULAR HEMOGLOBIN 29.3 pg (28.0-32.0); MEAN PLATELET VOLUME 9.2 fl (7.4-10.4); NEUTROPHILS % 74.4 % (40.0-76.0); PLATELET 158 x1000/uL (130-400); RED BLOOD CELL COUNT 2.82 mill/uL (4.2-5.4); RED CELL DISTRIBUTION WIDTH 19.3 % (11.6-14.6)
[2022-08-10 05:48] LABS: CHLORIDE 98 mEq/L (98-107)
[2022-08-10 05:59] LABS: PHOSPHORUS 2.3 mg/dL (2.5-4.9)
[2022-08-10] MEDS ORDERED: LORAZEPAM 2MG/ML CPJ IV PRN (07:15)
[2022-08-10] MEDS: INSULIN LISPRO 100 UNITS/ML SUBCUT SCH ×4 (08:20→21:00)
[2022-08-10] MEDS: BLOOD SUGAR DIAGNOSTIC STRIP TEST SCH ×4 (08:46→21:04)
[2022-08-10] MEDS: PANTOPRAZOLE SODIUM 40 MG/VIAL IV SCH (08:51)
[2022-08-10] MEDS ORDERED: NON FORMULARY PATIENT HOME MED XX SCH (11:15)
[2022-08-10] MEDS ORDERED: ENOXAPARIN 100MG/ML SYR SUBCUT SCH (12:00)
[2022-08-10 12:29] LABS: BG CARBOXYHEMOGLOBIN 0.7 % (0.5-1.5); BG DEOXYHEMOGLOBIN 0.9 % (0.0-5.0); BG FRACTION INSPIRED OXYGEN 40; BG HCO3 ACT 27.6 mmol/L (22.0-26.0); BG METHEMOGLOBIN 0.2 % (0.0-1.5); BG OXYGEN SATURATION 99.1 % (92.0-98.5); BG OXYHEMOGLOBIN 98.2 % (94.0-97.0); BG PO2 129.5 mmHg (75.0-100.0); BG SAMPLE SITE RIGHT RADIAL; BG TOTAL HEMOGLOBIN 8.1 g/dL (12.0-18.0); BG VENT MODE VENT - AC
[2022-08-10] MEDS: FUROSEMIDE 40MG/4ML VIAL IVP SCH ×2 (12:40→17:38)
[2022-08-10] MEDS: SUCRALFATE 1 G/10 ML UDC GT SCH ×3 (12:41→23:57)
[2022-08-10] MEDS ORDERED: CEFEPIME 2,000 MG in DEXT 5% WATER 100 ML IV SCH (14:00)
[2022-08-10] MEDS: PIPERACILLIN/TAZOBACTAM 3.375 G in DEXTROSE 5% WATER 50 ML IV SCH ×2 (14:05→21:06)
[2022-08-10] MEDS ORDERED: IPRATROPIUM/ALBUTEROL 0.5-3(2.5)MG/3ML NEB HHN PRN (14:15)
[2022-08-10] MEDS: SODIUM CHLORIDE 0.9% 1,000 ML IV SCH (17:39)
[2022-08-10] MEDS: DOXYCYCLINE HYCLATE 100MG CAPSULE GT SCH (17:39)
[2022-08-10] MEDS: IPRATROPIUM/ALBUTEROL 0.5-3(2.5)MG/3ML NEB HHN SCH (20:24)
[2022-08-10] MEDS: CARVEDILOL 3.125 MG TABLET PO SCH (21:03)
[2022-08-10] MEDS: TRAZODONE HCL 50MG TABLET GT SCH (21:04)
[2022-08-10] MEDS: HYDROCODONE/ACETAMINOPHEN 5/325MG TABLET PO PRN (22:09)
[2022-08-11] VITALS (34 sets, daily range): BP systolic 98–145; BP diastolic 39–72
[2022-08-11] MEDS ORDERED: ENOXAPARIN 80MG/0.8ML SYR SUBCUT SCH
[2022-08-11] MEDS: IPRATROPIUM/ALBUTEROL 0.5-3(2.5)MG/3ML NEB HHN SCH ×4 (01:38→20:22)
[2022-08-11 05:43] LABS: BASOPHILS % 0.8 % (0.0-2.0); EOSINOPHILS % 7.5 % (0.0-5.0); LYMPHOCYTES % 12.6 % (20.0-50.0); MEAN CORPUSCULAR HEMOGLOBIN 30.3 pg (28.0-32.0); MEAN CORPUSCULAR VOLUME 89.9 fL (81.0-99.0); MEAN PLATELET VOLUME 8.8 fl (7.4-10.4); MONOCYTES % 8.8 % (2.0-8.0); NEUTROPHILS % 70.3 % (40.0-76.0); PLATELET 177 x1000/uL (130-400); RED BLOOD CELL COUNT 2.26 mill/uL (4.2-5.4); RED CELL DISTRIBUTION WIDTH 19.5 % (11.6-14.6)
[2022-08-11] MEDS: SUCRALFATE 1 G/10 ML UDC GT SCH ×4 (05:51→23:46)
[2022-08-11] MEDS: PIPERACILLIN/TAZOBACTAM 3.375 G in DEXTROSE 5% WATER 50 ML IV SCH ×3 (05:51→22:18)
[2022-08-11 06:08] LABS: CHLORIDE 99 mEq/L (98-107)
[2022-08-11 06:21] LABS: PHOSPHORUS 3.2 mg/dL (2.5-4.9)
[2022-08-11 07:07] LABS: HEMATOCRIT. 20.4 % (36.0-48.0); HEMOGLOBIN. 6.9 g/dL (12.0-16.0)
[2022-08-11] MEDS: BLOOD SUGAR DIAGNOSTIC STRIP TEST SCH ×4 (07:50→20:33)
[2022-08-11] MEDS: INSULIN LISPRO 100 UNITS/ML SUBCUT SCH ×4 (08:20→20:33)
[2022-08-11] MEDS ORDERED: LANSOPRAZOLE 30MG DR CAPSULE GT SCH (09:00)
[2022-08-11] MEDS ORDERED: POTASSIUM CHLORIDE 20MEQ TABLET SR PO NR (09:15)
[2022-08-11] MEDS: PANTOPRAZOLE SODIUM 40 MG/VIAL IV SCH (09:35)
[2022-08-11] MEDS: FUROSEMIDE 40MG/4ML VIAL IVP SCH ×2 (09:35→17:59)
[2022-08-11] MEDS: POLYETHYLENE GLYCOL 3350 (17GM) 1 DOSE PACK GT SCH (09:35)
[2022-08-11] MEDS: CARVEDILOL 3.125 MG TABLET PO SCH ×2 (09:35→20:33)
[2022-08-11] MEDS: BISACODYL 10MG SUPP PR SCH (09:36)
[2022-08-11] MEDS: DOXYCYCLINE HYCLATE 100MG CAPSULE GT SCH ×2 (09:40→17:59)
[2022-08-11] MEDS: MONTELUKAST SODIUM 10MG TABLET PO SCH (17:59)
[2022-08-11] MEDS: TRAZODONE HCL 50MG TABLET GT SCH (20:33)
[2022-08-12] VITALS (43 sets, daily range): BP systolic 109–189; BP diastolic 44–75
[2022-08-12 00:12] LABS: HEMATOCRIT 25.3 % (36.0-48.0); HEMOGLOBIN 8.5 g/dL (12.0-16.0)
[2022-08-12] MEDS: IPRATROPIUM/ALBUTEROL 0.5-3(2.5)MG/3ML NEB HHN SCH ×4 (01:45→20:12)
[2022-08-12] MEDS: PIPERACILLIN/TAZOBACTAM 3.375 G in DEXTROSE 5% WATER 50 ML IV SCH ×3 (05:43→22:22)
[2022-08-12] MEDS: SUCRALFATE 1 G/10 ML UDC GT SCH ×3 (05:43→17:21)
[2022-08-12 06:28] LABS: BASOPHILS % 0.8 % (0.0-2.0); EOSINOPHILS % 7.1 % (0.0-5.0); HEMATOCRIT. 24.3 % (36.0-48.0); HEMOGLOBIN. 8.1 g/dL (12.0-16.0); LYMPHOCYTES % 11.3 % (20.0-50.0); MEAN CORPUSCULAR HEMOGLOBIN 29.4 pg (28.0-32.0); MEAN CORPUSCULAR VOLUME 88.5 fL (81.0-99.0); MEAN PLATELET VOLUME 8.3 fl (7.4-10.4); MONOCYTES % 10.1 % (2.0-8.0); NEUTROPHILS % 70.7 % (40.0-76.0); PLATELET 198 x1000/uL (130-400); RED BLOOD CELL COUNT 2.75 mill/uL (4.2-5.4)
[2022-08-12 06:35] LABS: CHLORIDE 99 mEq/L (98-107)
[2022-08-12] MEDS ORDERED: POTASSIUM CHLORIDE 20MEQ/PACKET PO NR (08:15)
[2022-08-12] MEDS: INSULIN LISPRO 100 UNITS/ML SUBCUT SCH ×4 (08:20→21:00)
[2022-08-12] MEDS: BLOOD SUGAR DIAGNOSTIC STRIP TEST SCH ×4 (08:30→21:00)
[2022-08-12] MEDS: PANTOPRAZOLE SODIUM 40 MG/VIAL IV SCH (09:23)
[2022-08-12] MEDS: BISACODYL 10MG SUPP PR SCH (09:23)
[2022-08-12] MEDS: DOXYCYCLINE HYCLATE 100MG CAPSULE GT SCH ×2 (09:23→17:23)
[2022-08-12] MEDS: FUROSEMIDE 40MG/4ML VIAL IVP SCH ×2 (09:23→17:22)
[2022-08-12] MEDS: CARVEDILOL 3.125 MG TABLET PO SCH ×2 (09:24→22:21)
[2022-08-12] MEDS: POLYETHYLENE GLYCOL 3350 (17GM) 1 DOSE PACK GT SCH (09:24)
[2022-08-12] MEDS: MONTELUKAST SODIUM 10MG TABLET PO SCH (17:22)
[2022-08-12] MEDS: TRAZODONE HCL 50MG TABLET GT SCH (22:19)
[2022-08-13] VITALS (45 sets, daily range): BP systolic 105–157; BP diastolic 51–72
[2022-08-13] MEDS: SUCRALFATE 1 G/10 ML UDC GT SCH ×5 (00:26→23:35)
[2022-08-13] MEDS: IPRATROPIUM/ALBUTEROL 0.5-3(2.5)MG/3ML NEB HHN SCH ×4 (02:19→20:35)
[2022-08-13 04:49] LABS: BASOPHILS % 0.4 % (0.0-2.0); EOSINOPHILS % 5.4 % (0.0-5.0); HEMATOCRIT. 27.4 % (36.0-48.0); LYMPHOCYTES % 12.4 % (20.0-50.0); MEAN CORPUSCULAR HEMOGLOBIN 29.4 pg (28.0-32.0); MEAN CORPUSCULAR VOLUME 90.1 fL (81.0-99.0); MEAN PLATELET VOLUME 8.5 fl (7.4-10.4); MONOCYTES % 11.2 % (2.0-8.0); NEUTROPHILS % 70.6 % (40.0-76.0); PLATELET 216 x1000/uL (130-400); RED BLOOD CELL COUNT 3.05 mill/uL (4.2-5.4); RED CELL DISTRIBUTION WIDTH 19.4 % (11.6-14.6)
[2022-08-13] MEDS: PIPERACILLIN/TAZOBACTAM 3.375 G in DEXTROSE 5% WATER 50 ML IV SCH ×3 (05:14→21:33)
[2022-08-13] MEDS: BLOOD SUGAR DIAGNOSTIC STRIP TEST SCH ×4 (07:50→21:00)
[2022-08-13] MEDS: INSULIN LISPRO 100 UNITS/ML SUBCUT SCH ×4 (08:20→21:00)
[2022-08-13] MEDS: BISACODYL 10MG SUPP PR SCH (09:00)
[2022-08-13] MEDS: FUROSEMIDE 40MG/4ML VIAL IVP SCH ×2 (09:00→17:00)
[2022-08-13] MEDS: POLYETHYLENE GLYCOL 3350 (17GM) 1 DOSE PACK GT SCH (09:00)
[2022-08-13] MEDS: PANTOPRAZOLE SODIUM 40 MG/VIAL IV SCH (10:06)
[2022-08-13] MEDS: CARVEDILOL 3.125 MG TABLET PO SCH ×2 (10:07→21:34)
[2022-08-13] MEDS: DOXYCYCLINE HYCLATE 100MG CAPSULE GT SCH ×2 (10:12→18:12)
[2022-08-13] MEDS: MONTELUKAST SODIUM 10MG TABLET PO SCH (17:00)
[2022-08-13] MEDS: TRAZODONE HCL 50MG TABLET GT SCH (21:33)
[2022-08-14] VITALS (23 sets, daily range): BP systolic 108–153; BP diastolic 36–82
[2022-08-14] MEDS: IPRATROPIUM/ALBUTEROL 0.5-3(2.5)MG/3ML NEB HHN SCH ×2 (00:40→08:15)
[2022-08-14] MEDS: SUCRALFATE 1 G/10 ML UDC GT SCH ×3 (05:25→17:55)
[2022-08-14] MEDS: PIPERACILLIN/TAZOBACTAM 3.375 G in DEXTROSE 5% WATER 50 ML IV SCH ×3 (05:25→23:05)
[2022-08-14 05:42] LABS: BASOPHILS % 0.5 % (0.0-2.0); EOSINOPHILS % 9.4 % (0.0-5.0); HEMATOCRIT. 26.2 % (36.0-48.0); HEMOGLOBIN. 8.7 g/dL (12.0-16.0); LYMPHOCYTES % 14.8 % (20.0-50.0); MEAN CORPUSCULAR HEMOGLOBIN 29.8 pg (28.0-32.0); MEAN CORPUSCULAR VOLUME 89.6 fL (81.0-99.0); MEAN PLATELET VOLUME 8.7 fl (7.4-10.4); MONOCYTES % 9.6 % (2.0-8.0); NEUTROPHILS % 65.7 % (40.0-76.0); PLATELET 256 x1000/uL (130-400); RED BLOOD CELL COUNT 2.92 mill/uL (4.2-5.4); RED CELL DISTRIBUTION WIDTH 19.4 % (11.6-14.6)
[2022-08-14 06:06] LABS: CHLORIDE 98 mEq/L (98-107)
[2022-08-14] MEDS ORDERED: POTASSIUM CHLORIDE 20MEQ/PACKET PO NR (07:00)
[2022-08-14] MEDS: BLOOD SUGAR DIAGNOSTIC STRIP TEST SCH ×4 (07:50→21:00)
[2022-08-14] MEDS: INSULIN LISPRO 100 UNITS/ML SUBCUT SCH ×4 (08:20→21:00)
[2022-08-14] MEDS ORDERED: POTASSIUM CHLORIDE 20MEQ/PACKET PO SCH (08:45)
[2022-08-14] MEDS ORDERED: COR3 PO (09:03)
[2022-08-14] MEDS ORDERED: FURO40TA5 MT (09:03)
[2022-08-14] MEDS: POLYETHYLENE GLYCOL 3350 (17GM) 1 DOSE PACK GT SCH (09:13)
[2022-08-14] MEDS: BISACODYL 10MG SUPP PR SCH (09:14)
[2022-08-14] MEDS: FUROSEMIDE 40MG/4ML VIAL IVP SCH ×2 (09:14→17:55)
[2022-08-14] MEDS: DOXYCYCLINE HYCLATE 100MG CAPSULE GT SCH ×2 (09:14→17:55)
[2022-08-14] MEDS: CARVEDILOL 3.125 MG TABLET PO SCH ×2 (09:14→20:51)
[2022-08-14] MEDS: PANTOPRAZOLE SODIUM 40 MG/VIAL IV SCH (10:54)
[2022-08-14] MEDS ORDERED: IPRATROPIUM BROMIDE (0.02%) 0.5MG/2.5ML NEB HHN PRN (16:00)
[2022-08-14] MEDS ORDERED: ALBUTEROL (0.083%) 2.5MG/3ML NEB HHN PRN (16:00)
[2022-08-14] MEDS: MONTELUKAST SODIUM 10MG TABLET PO SCH (17:55)
[2022-08-14] MEDS: ALBUTEROL (0.083%) 2.5MG/3ML NEB HHN SCH (20:31)
[2022-08-14] MEDS: IPRATROPIUM BROMIDE (0.02%) 0.5MG/2.5ML NEB HHN SCH (20:31)
[2022-08-14] MEDS: TRAZODONE HCL 50MG TABLET GT SCH (20:51)
[2022-08-15] VITALS (12 sets, daily range): BP systolic 100–152; BP diastolic 45–75
[2022-08-15] MEDS: SUCRALFATE 1 G/10 ML UDC GT SCH ×5 (00:39→23:42)
[2022-08-15] MEDS: ALBUTEROL (0.083%) 2.5MG/3ML NEB HHN SCH ×4 (02:49→20:36)
[2022-08-15] MEDS: IPRATROPIUM BROMIDE (0.02%) 0.5MG/2.5ML NEB HHN SCH ×4 (02:50→20:36)
[2022-08-15] MEDS: PIPERACILLIN/TAZOBACTAM 3.375 G in DEXTROSE 5% WATER 50 ML IV SCH ×3 (05:35→23:38)
[2022-08-15] MEDS: BLOOD SUGAR DIAGNOSTIC STRIP TEST SCH ×4 (07:30→21:00)
[2022-08-15] MEDS: INSULIN LISPRO 100 UNITS/ML SUBCUT SCH ×4 (08:00→21:00)
[2022-08-15] MEDS: CARVEDILOL 3.125 MG TABLET PO SCH ×3 (09:00→22:11)
[2022-08-15] MEDS: PANTOPRAZOLE SODIUM 40 MG/VIAL IV SCH (09:32)
[2022-08-15] MEDS: POLYETHYLENE GLYCOL 3350 (17GM) 1 DOSE PACK GT SCH (09:32)
[2022-08-15] MEDS: FUROSEMIDE 40MG/4ML VIAL IVP SCH ×2 (09:32→16:55)
[2022-08-15] MEDS: DOXYCYCLINE HYCLATE 100MG CAPSULE GT SCH ×2 (09:32→16:55)
[2022-08-15] MEDS: BISACODYL 10MG SUPP PR SCH (09:33)
[2022-08-15] MEDS: MONTELUKAST SODIUM 10MG TABLET PO SCH (17:05)
[2022-08-15] MEDS: TRAZODONE HCL 50MG TABLET GT SCH (22:10)
[2022-08-16] VITALS (12 sets, daily range): BP systolic 107–153; BP diastolic 53–99
[2022-08-16] MEDS: IPRATROPIUM BROMIDE (0.02%) 0.5MG/2.5ML NEB HHN SCH ×4 (02:07→19:44)
[2022-08-16] MEDS: ALBUTEROL (0.083%) 2.5MG/3ML NEB HHN SCH ×2 (02:08→19:45)
[2022-08-16 06:31] LABS: EOSINOPHILS % 13.8 % (0.0-5.0); HEMATOCRIT. 31.6 % (36.0-48.0); HEMOGLOBIN. 10.3 g/dL (12.0-16.0); LYMPHOCYTES % 15.2 % (20.0-50.0); MEAN CORPUSCULAR HEMOGLOBIN 29.5 pg (28.0-32.0); MEAN CORPUSCULAR VOLUME 90.2 fL (81.0-99.0); MEAN PLATELET VOLUME 8.8 fl (7.4-10.4); MONOCYTES % 8.3 % (2.0-8.0); NEUTROPHILS % 61.7 % (40.0-76.0); PLATELET 283 x1000/uL (130-400); RED CELL DISTRIBUTION WIDTH 19.5 % (11.6-14.6)
[2022-08-16] MEDS: PIPERACILLIN/TAZOBACTAM 3.375 G in DEXTROSE 5% WATER 50 ML IV SCH ×3 (06:49→23:53)
[2022-08-16] MEDS: SUCRALFATE 1 G/10 ML UDC GT SCH ×4 (06:49→23:54)
[2022-08-16] MEDS: BLOOD SUGAR DIAGNOSTIC STRIP TEST SCH ×4 (07:30→21:00)
[2022-08-16] MEDS: INSULIN LISPRO 100 UNITS/ML SUBCUT SCH ×4 (08:00→21:00)
[2022-08-16] MEDS: POLYETHYLENE GLYCOL 3350 (17GM) 1 DOSE PACK GT SCH (09:00)
[2022-08-16] MEDS: CARVEDILOL 3.125 MG TABLET PO SCH ×2 (09:00→10:09)
[2022-08-16] MEDS: BISACODYL 10MG SUPP PR SCH (09:00)
[2022-08-16] MEDS: DOXYCYCLINE HYCLATE 100MG CAPSULE GT SCH ×2 (10:07→18:41)
[2022-08-16] MEDS: FUROSEMIDE 40MG/4ML VIAL IVP SCH ×2 (10:08→18:41)
[2022-08-16] MEDS: PANTOPRAZOLE SODIUM 40 MG/VIAL IV SCH (10:08)
[2022-08-16] MEDS ORDERED: POTASSIUM CHLORIDE 20MEQ/PACKET PO NR (11:15)
[2022-08-16] MEDS: MONTELUKAST SODIUM 10MG TABLET PO SCH (18:42)
[2022-08-16] MEDS: TRAZODONE HCL 50MG TABLET GT SCH (23:53)
[2022-08-17] VITALS (15 sets, daily range): BP systolic 115–140; BP diastolic 55–76
[2022-08-17] MEDS: IPRATROPIUM BROMIDE (0.02%) 0.5MG/2.5ML NEB HHN SCH ×4 (01:49→20:24)
[2022-08-17] MEDS: ALBUTEROL (0.083%) 2.5MG/3ML NEB HHN SCH ×3 (01:49→20:23)
[2022-08-17] MEDS: PIPERACILLIN/TAZOBACTAM 3.375 G in DEXTROSE 5% WATER 50 ML IV SCH ×3 (06:43→22:20)
[2022-08-17] MEDS: BLOOD SUGAR DIAGNOSTIC STRIP TEST SCH ×4 (07:38→21:56)
[2022-08-17] MEDS: INSULIN LISPRO 100 UNITS/ML SUBCUT SCH ×4 (08:00→21:00)
[2022-08-17] MEDS: CARVEDILOL 3.125 MG TABLET PO SCH ×2 (09:57→22:20)
[2022-08-17] MEDS: POLYETHYLENE GLYCOL 3350 (17GM) 1 DOSE PACK GT SCH (09:57)
[2022-08-17] MEDS: FUROSEMIDE 40MG/4ML VIAL IVP SCH ×2 (09:57→17:28)
[2022-08-17] MEDS: PANTOPRAZOLE SODIUM 40 MG/VIAL IV SCH (09:57)
[2022-08-17] MEDS: BISACODYL 10MG SUPP PR SCH (09:57)
[2022-08-17] MEDS: SUCRALFATE 1 G/10 ML UDC GT SCH ×2 (12:00→17:28)
[2022-08-17] MEDS: MONTELUKAST SODIUM 10MG TABLET PO SCH (17:28)
[2022-08-17] MEDS: TRAZODONE HCL 50MG TABLET GT SCH (22:19)
[2022-08-18] VITALS: BP 142/77
[2022-08-18] MEDS: SUCRALFATE 1 G/10 ML UDC GT SCH ×2 (00:10→05:49)
[2022-08-18] MEDS: ALBUTEROL (0.083%) 2.5MG/3ML NEB HHN SCH ×3 (01:58→13:55)
[2022-08-18] MEDS: IPRATROPIUM BROMIDE (0.02%) 0.5MG/2.5ML NEB HHN SCH ×3 (01:58→13:55)
[2022-08-18 04:00] VITALS: BP 138/67
[2022-08-18] MEDS: PIPERACILLIN/TAZOBACTAM 3.375 G in DEXTROSE 5% WATER 50 ML IV SCH (05:50)
[2022-08-18 06:00] VITALS: BP 131/61
[2022-08-18 06:23] LABS: BASOPHILS % 0.8 % (0.0-2.0); EOSINOPHILS % 7.7 % (0.0-5.0); HEMATOCRIT. 32.4 % (36.0-48.0); HEMOGLOBIN. 10.6 g/dL (12.0-16.0); LYMPHOCYTES % 11.4 % (20.0-50.0); MEAN CORPUSCULAR HEMOGLOBIN 29.5 pg (28.0-32.0); MEAN CORPUSCULAR VOLUME 90.3 fL (81.0-99.0); MEAN PLATELET VOLUME 8.7 fl (7.4-10.4); NEUTROPHILS % 72.1 % (40.0-76.0); PLATELET 335 x1000/uL (130-400); RED BLOOD CELL COUNT 3.59 mill/uL (4.2-5.4); RED CELL DISTRIBUTION WIDTH 19.6 % (11.6-14.6)
[2022-08-18] MEDS: BLOOD SUGAR DIAGNOSTIC STRIP TEST SCH (07:30)
[2022-08-18] MEDS: INSULIN LISPRO 100 UNITS/ML SUBCUT SCH (08:00)
[2022-08-18] MEDS: FUROSEMIDE 40MG/4ML VIAL IVP SCH (09:00)
[2022-08-18] MEDS: POLYETHYLENE GLYCOL 3350 (17GM) 1 DOSE PACK GT SCH (09:00)
[2022-08-18] MEDS: CARVEDILOL 3.125 MG TABLET PO SCH (10:51)
[2022-08-18] MEDS: PANTOPRAZOLE SODIUM 40 MG/VIAL IV SCH (10:52)
[2022-08-18] MEDS: BISACODYL 10MG SUPP PR SCH (10:52)
[2022-08-18] MEDS ORDERED: SODIUM CHLORIDE 0.9% 1,000 ML IV SCH (15:45)
== END 2022-08-18 15:38 | DRG 870 ==
LOC: ER 13:16 → CVICU 16:52 → EDBEDREQTM 17:25 → EDBEDREQ 17:25 → 5EST 08-14 13:37
PROVIDERS: ADMIT Family Medicine Adult Medicine; ATTEND Family Medicine Adult Medicine
PROC: 5A1955Z Respiratory Ventilation, Greater than 96 Consecutive Hours (ICD-10-PCS; principal; 2022-08-09)
PROC: 30233N1 Transfusion of Nonautologous Red Blood Cells into Peripheral Vein, Percutaneous Approach (ICD-10-PCS; 2022-08-11)
DX: A41.52 Sepsis due to Pseudomonas (principal); E43 Unspecified severe protein-calorie malnutrition; J96.20 Acute and chronic respiratory failure, unspecified whether with hypoxia or hypercapnia; J15.6 Pneumonia due to other Gram-negative bacteria; J69.0 Pneumonitis due to inhalation of food and vomit; I21.4 Non-ST elevation (NSTEMI) myocardial infarction; I42.9 Cardiomyopathy, unspecified; I48.92 Unspecified atrial flutter; Z99.11 Dependence on respirator [ventilator] status; E87.1 Hypo-osmolality and hyponatremia; J44.0 Chronic obstructive pulmonary disease with (acute) lower respiratory infection; G93.40 Encephalopathy, unspecified; I13.0 Hypertensive heart and chronic kidney disease with heart failure and stage 1 through stage 4 chronic kidney disease, or unspecified chronic kidney disease; N39.0 Urinary tract infection, site not specified; N17.9 Acute kidney failure, unspecified; G40.909 Epilepsy, unspecified, not intractable, without status epilepticus; K21.9 Gastro-esophageal reflux disease without esophagitis; Z20.822 Contact with and (suspected) exposure to COVID-19; Z79.84 Long term (current) use of oral hypoglycemic drugs; E87.6 Hypokalemia; I44.7 Left bundle-branch block, unspecified; N18.2 Chronic kidney disease, stage 2 (mild); I50.9 Heart failure, unspecified; D63.1 Anemia in chronic kidney disease; E11.22 Type 2 diabetes mellitus with diabetic chronic kidney disease; I48.0 Paroxysmal atrial fibrillation; F03.90 Unspecified dementia, unspecified severity, without behavioral disturbance, psychotic disturbance, mood disturbance, and anxiety; L89.156 Pressure-induced deep tissue damage of sacral region; Z93.1 Gastrostomy status; Z68.29 Body mass index [BMI] 29.0-29.9, adult; Z66 Do not resuscitate; Z79.01 Long term (current) use of anticoagulants; Z93.0 Tracheostomy status; R13.10 Dysphagia, unspecified; Z95.810 Presence of automatic (implantable) cardiac defibrillator; Z79.52 Long term (current) use of systemic steroids; Z79.899 Other long term (current) drug therapy; Z79.4 Long term (current) use of insulin
CPT/HCPCS: 36415; 36600; 71045; 80048; 80053; 80076; 81003; 82040; 82270; 82375; 82607; 82728; 82746; 82805; 82962; 83036; 83540; 83550; 83605; 83735; 83880; 84100; 84134; 84145; 84484; 85014; 85018; 85025; 85027; 85044; 86850; 86900; 86920; 87070; 87077; 87186; 87426; 87804; 93005; 93923; 93970; 94002; 94003; 94640; 99291; A6261; C9113; C9803; J0692; J0696; J1650; J1940; J2405; J2543; J3370; J3490; J7030; J7050; J7060; P9016; A4315